=== PATIENT | female | born 1955 | race Caucasian/White ===

== ENCOUNTER 2023-08-06 09:51 | Outpatient (OUT) | payer MEDICARE, SELFPAY ==
--- NOTE | 2023-08-06 10:05 | MM_ITS ---
Patient Name: VANESSA CASTAÑEDA MR#: [id number] : 1955 Exam Date: 08/06/2023 Ordering Doctor: DR FELIX GREEN RADIOLOGY REPORT PROCEDURE: MM TOMOSYNTHESIS SCREENING BI COMPARISON: MG MAMM CHERRY SCRN W CAD DIG, 09/02/2013. INDICATIONS: screening Calculator Name NCI Breast Cancer Risk Assessment Tool 5 Year Breast Cancer Risk 1.20% Lifetime Breast Cancer Risk 4.40% Personal Breast Cancer No Personal Ovarian Cancer No Treatments None Family Cancers None LOCATION: [facility] BREAST COMPOSITION: Scattered areas fibroglandular density. FINDINGS: DIAGNOSTIC CATEGORY 2--BENIGN FINDING. NO CHANGE FROM COMPARISON. Significant interval increase in linear calcifications right greater than left and coarse calcifications left greater than right, benign appearing. Scattered benign-appearing lymph nodes are present. RIGHT BREAST: No significant suspicious finding. LEFT BREAST: No significant suspicious finding. RECOMMENDATIONS: ROUTINE MAMMOGRAM AND CLINICAL EVALUATION IN 12 MONTHS. PLEASE NOTE: A NORMAL MAMMOGRAM DOES NOT EXCLUDE THE POSSIBILITY OF BREAST CANCER. A CLINICALLY SUSPICIOUS PALPABLE LUMP SHOULD BE BIOPSIED. Dictated by: Gavino Kaur MD on 08/06/2023 at 11:52 Approved by: Gavino Kaur MD on 08/06/2023 at 11:53
--- NOTE | 2023-08-06 10:06 | CT_ITS ---
The [address] [address] Patient Name: VANESSA CASTAÑEDA MRN: [id number] date: 1955 Sex: F Assigned Patient Location: CT Current Patient Location: Accession/Order Number: [id number] Exam Date: 08/06/2023 10:21 Report Date: 08/07/2023 05:23 At the request of: FELIX GREEN Procedure: CT lung screening low-dose EXAM: CT lung screening low-dose HISTORY: History of nicotine dependence; technologist notes state lung cancer screening, no chest complaints and current smoker. COMPARISON: CT abdomen/pelvis dated 12/09/2021. TECHNIQUE: Routine low-dose CT lung screen without intravenous contrast. Dose reduction techniques were achieved by using automated exposure control and/or adjustment of mA and/or kV according to patient size and/or use of iterative reconstruction technique. FINDINGS: Cardiovascular: Multivessel coronary artery calcifications, severe along the left anterior descending coronary artery. Moderate atheromatous calcification thoracic and abdominal aorta. Mild atheromatous calcification great vessels off the aortic arch and right subclavian artery. Mild atheromatous calcifications splenic and origin of the right main renal artery and moderate atheromatous calcification along the proximal superior mesenteric artery. Lungs: There is peribronchial thickening, most pronounced within the bilateral lower lobes consistent with acute and/or chronic bronchitis. There is associated mucous plugging within the bilateral lower lobes. There are mild linear densities within the bilateral lower lobes suggesting atelectasis and/or parenchymal scar. There is biapical pleural parenchymal scarring, moderate on the right and mild on the left. Nodules: There is a 0.3 cm noncalcified nodule anterior lateral aspect right mid chest (series 3 image 65). There is a 0.2 cm noncalcified perifissural nodule right lower chest. There is a 0.3 cm noncalcified pleural-based nodule posterior left lung apex (series 3 image 16). Lymphadenopathy: There are no pathologically enlarged axillary, mediastinal or hilar lymph nodes. Other: The trachea, esophagus and thyroid gland are unremarkable. Upper abdomen: There is a calcified granuloma within the spleen. Osseous: The bony structures are osteopenic. 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 Stable compression fracture of the L1 vertebral body with approximately 15% loss of height. Age indeterminate compression fractures of the C7 and T1 vertebral bodies with less than 10-15% loss of height and age-indeterminate compression fracture of the T2 vertebral body with less than 5% loss of height. CT/CT lung screening low-dose IMPRESSION: There is peribronchial thickening, most pronounced within the bilateral lower lobes consistent with acute and/or chronic bronchitis. There is associated mucous plugging within the bilateral lower lobes. There are mild linear densities within the bilateral lower lobes suggesting atelectasis and/or parenchymal scar. Appropriate clinical management recommended. There is a 0.3 cm noncalcified nodule anterior lateral aspect right mid chest (series 3 image 65) and a 0.2 cm noncalcified perifissural nodule right lower chest. There is a 0.3 cm noncalcified pleural-based nodule posterior left lung apex (series 3 image 16). There are no pathologically enlarged lymph nodes. Multivessel coronary artery calcifications, severe along the left anterior descending coronary artery. Atherosclerotic disease as otherwise described in the body the report. 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 MRI of the shoulders could be performed for more detailed evaluation. Stable compression fracture of the L1 vertebral body with approximately 15% loss of height. Age indeterminate compression fractures of the C7 and T1 vertebral bodies with less than 10-15% loss of height and age-indeterminate compression fracture of the T2 vertebral body with less than 5% loss of height. Appropriate clinical management recommended. Lung rads score 1 S. A low-dose CT lung screen examination in 12 months is recommended. Electronically authenticated by: RU BECK Date: 08/07/2023 05:23
== END 2023-08-06 09:52 | disposition home or self-care (01) ==
LOC: CT 09:56
PROVIDERS: PCP Nurse Practitioner Family; Visit Provider Nurse Practitioner Family
DX: Z12.31 Encounter for screening mammogram for malignant neoplasm of breast (principal); Z87.891 Personal history of nicotine dependence
CPT/HCPCS: 71271; 77063; 77067

== ENCOUNTER 2023-10-16 09:06 | Outpatient (OUT) | payer MEDICARE, SELFPAY ==
[2023-10-16 09:30] LABS: Hemoglobin 15.5 g/dL (12.0-16.0)
--- OUTSIDE RECORDS SUMMARY | 2023-10-16 09:30 | XMS_ITS | CCD ---
Author Organization [facility] Care Team Providers Care Flight Test Supervisor Name Role Phone HOUSE, DR JOSHI Primary Care Unavailable HANLONTOWN, DR JOSHI Admitting Unavailable [facility], DR RONNY Gomez Consulting Unavailable HANLONTOWN, DR JOSHI Attending Unavailable HANLONTOWN, DR JOSHI Primary Care Unavailable HANLONTOWN, DR HAYDEN Alvaradoitting Unavailable HANLONTOWN, DR JOSHI Attending Unavailable HANLONTOWN, DR JOSHI Consulting Unavailable HANLONTOWN, DR JOSHI Primary Care Unavailable HANLONTOWN, DR JOSHI Admitting Unavailable [place], DR ROJAS Kumar Consulting Unavailable HANLONTOWN, DR JOSHI Attending Unavailable HANLONTOWN, DR JOSHI Consulting Unavailable DO Donny Jacobson Attending Provider DO Hayden Dodson Primary Care Provider Hayden Dodson Unavailable Unavailable Unavailable MD Yakelin Crowe Attending Provider MD Elle Luong Referring Provider [phone] Amrita, Dr. Hamlin Attending Unavaila ble [place], Dr. Hayden Mac Primary [facility] Unava ilable Amrita, Dr. Hamlin Attending Unavaila ble Amrita, Dr. Hamlin Referring Unavaila ble [place], Dr. Hayden Mac Primary Care Unava ilable Amrita, Dr. Hamlin Attending Unavaila ble Amrita, Dr. Hamlin Referring Unavaila [facility], Dr. Hayden Mac Primary Care Unava Ino Gallegos Unavailable DO Hayden Dodson Primary Care Provider MD Yakelin Crowe Attending Provider MD Elle Luong Referring Provider [phone] DO Donny Jacobson Attending Provider MD Ino Perkins Attending Provider DO Hayden Dodson Primary Care Provider MD Ino Perkins Attending Provider Vickie Ayon Unavailable Ino Perkins Admitting Unavailable Maddie, Ino S Attending Unavailable House, Hayden Primary Care Unavailable Maddie, Ino S Admitting Unavailable Maddie, Ino S Attending Unavailable [place], Hayden Primary Care Unavailable Maddie, Ino S Attending Unavailable Maddie, Ino S Admitting Unavailable [place], Hayden Primary Care Unavailable Maddie, Ino S Attending Unavailable Maddie, Ino S Admitting Unavailable [place], Hayden Primary Care Unavailable NO FAMILY, PHYSICIAN Primary Care Unavailable Renata Moran Attending Unavailable Dean, Renata E Admitting Unavailable Maddie, Ino S Admitting Unavailable Maddie, Ino S Attending Unavailable Ivory, Hayden Primary Care Unavailable Dean FIRE BOAT ENGINEER-MAINFRAME SYSTEMS ADMINISTRATOR-C Renata Mullins Attending Provider NO FAMILY, PHYSICIAN Primary Care Provider Unava ilable Kuns FIRE BOAT ENGINEER-MAINFRAME SYSTEMS ADMINISTRATORSuzanna Primary Care Provider Vanesa Tomas MD Primary Care Provider [phone] JESSYS, CONI Referring Unavailable KUNS, CONI Primary Care Unavailable KUNS, CONI Referring Unavailable KUNS, CONI Primary Care Unavailable KUNS, CONI Attending Unavailable KUNS, CONI Referring Unavailable KUNS, CONI Primary Care Unavailable KUNS, CONI Attending Unavailable IVORY HAYDEN Referring Unavailable KUNS, CONI Primary Care Unavailable KUNS, CONI Attending Unavailable KUNS, CONI Referring Unavailable KUNS, CONI Primary Care Unavailable KUNS, CONI Attending Unavailable KUNS, CONI Referring Unavailable KUNS, CONI Primary Care Unavailable KUNS, CONI Attending Unavailable KUNS, CONI Referring Unavailable KUNS, CONI Primary Care Unavailable RAQUEL GALVAN Attending Unavailable BIANCA PICKENS Attending Unavailable YADI GARCIA Attending Unavailable RAQUEL GALVAN Attending Unavailable BIANCA PICKENS Attending Unavailable EDNA MICHAEL Attending Unavailable BIANCA PICKENS Attending Unavailable BIANCA PICKENS Attending Unavailable JUAN CARO Attending Unavailable KUNS, CONI Referring Unavailable KUNS, CONI Primary Care Unavailable KUNSSUZANNA Referring Unavailable SUZANNA STRONG Primary [facility] Unavailable VANESA TOMAS Admitting Unavailable VANESA TOMAS Attending Unavailable SUZANNA STRONG Primary [facility] Unavailable VANESA TOMAS Attending Unavailable VANESA TOMAS Referring Unavailable SUZANNA STRONG [facility] Unavailable CARO, MUJEEB A Attending Unavailable CARO, MUJEEB A Referring Unavailable SUZANNA STRONG [facility] Unavailable CARO, MUJEEB A Attending Unavailable CARO, MUJEEB A Referring Unavailable SUZANNA STRONG Primary Care Unavailable CARO, MUJEEB A Attending Unavailable CARO, MUJEEB A Referring Unavailable SUZANNA STRONG [facility] Unavailable CARO, MUJEEB A Attending Unavailable CARO, MUJEEB A Referring Unavailable SUZANNA STRONG Primary [facility] Unavailable Allergies Allergy Classification Reported Allergen(s) Allergy Type Date of Onset Reaction(s) Facility (10 sources) metFORMIN; Translations: [METFORMIN] Drug Allergy 08-23-2023 Diarrhea [facility] Medications Current Medications Medication Drug Class(es) Dates Sig (Normalized) Sig (Original) [id number] 200 actuat albuterol 0.09 mg/actuat metered dose inhaler (11 sources) beta2-Adrenergic Agonist Start: 07-24-2023 take 2 puff(s) by inhalation every six hours as needed for wheezing albuterol (PROVENTIL HFA;VENTOLIN HFA) 90 mcg/actuation inhaler Indications: Chronic obstructive pulmonary disease, unspecified COPD type ([facility]) Inhale 2 puffs every 6 (six) hours as needed for wheezing or shortness of breath. 18 g 1 07/24/2023 Active aspirin 81 mg delayed release oral tablet (11 sources) Platelet Aggregation Inhibitor, Nonsteroidal Anti-inflammatory Drug Start: 06-18-2023 take 1 tablet by mouth in the morning aspirin 81 mg Take 1 tablet (81 mg total) by mouth in the morning. 0 06/18/2023 Active atropine sulfate 0.025 mg / diphenoxylate hydrochloride 2.5 mg oral tablet (7 sources) Anticholinergic, Cholinergic Muscarinic Antagonist, Antidiarrheal Start: 08-23-2023 take 1 tablet by mouth twice daily as needed for diarrhea diphenoxylate-atrop ine (LomotiL) 2.5-0.025 mg per tablet Indications: Functional diarrhea Take 1 tablet by mouth 2 (two) times a day as needed for diarrhea. 60 tablet 0 08/23/2023 Active celecoxib 200 mg oral capsule (9 sources) Nonsteroidal Anti-inflammatory Drug Start: 12-13-2020 take 1 capsule by mouth every twenty-four hours CeleBREX 200 MG 1 capsule with food Orally Once a day for 30 day(s) G89.29 Chronic Pain Nov, Active Combivent 120-20 MCG/ACT (9 sources) dextromethorphan hydrobromide 1.5 mg/ml / pyrilamine maleate 1.5 mg/ml oral solution (6 sources) Uncompetitive F-fqlquo-B-asparta te Receptor Antagonist, Sigma-1 Agonist Start: 08-27-2023 take 5 mL by mouth four times daily as needed for cough and congestion pyrilamine-dextrome thorphan 7.5-7.5 mg/5 mL liquid Take 5 mL by mouth 4 (four) times a day as needed (cough and congestion). 200 mL 1 08/27/2023 Active diclofenac sodium 0.01 mg/mg topical gel (9 sources) Nonsteroidal Anti-inflammatory Drug Start: 12-13-2020 Diclofenac Sodium 1 % as directed Externally apply two grams to mid back three- four times daily for 30 day(s) G89.29 Chronic pain Nov, Active diphenhydrAMINE hydrochloride 25 mg oral capsule (20 sources) Histamine-1 Receptor Antagonist Start: 01-18-2022 take 2 capsules by mouth at bedtime Diphenhydramine Hcl (Benadryl) 25 mg Capsule Active 50 MG PO Bedtime January 17, 2022 11:00pm dulaglutide (TRULICITY) 3 mg/0.5 mL pen injector (2 sources) Start: 09-27-2023 inject 3 mg by subcutaneous injection every week dulaglutide (TRULICITY) 3 mg/0.5 mL pen injector Inject 3 mg under the skin once a week. 2 mL 5 09/27/2023 Active DULoxetine 30 mg delayed release oral capsule (20 sources) Serotonin and Norepinephrine Reuptake Inhibitor Start: 01-18-2022 take 1 capsule by mouth in the morning DULoxetine (CYMBALTA) 30 mg capsule Take 1 capsule (30 mg total) by mouth in the morning. 0 05/18/2023 Active famotidine 20 mg oral tablet (11 sources) Histamine-2 Receptor Antagonist Start: 07-24-2023 take 1 tablet by mouth in the morning, then take 1 tablet by mouth at bedtime famotidine (PEPCID) 20 mg tablet Indications: Gastroesophageal reflux disease with esophagitis without hemorrhage Take 1 tablet (20 mg total) by mouth in the morning and 1 tablet (20 mg total) before bedtime. 60 tablet 1 07/24/2023 Active 30 actuat fluticasone furoate 0.1 mg/actuat / umeclidinium 0.0625 mg/actuat / vilanterol 0.025 mg/actuat dry powder inhaler (9 sources) Anticholinergic, Corticosteroid, beta2-Adrenergic Agonist Start: 08-08-2023 take 1 puff(s) by inhalation once daily fluticasone-umeclidi n-vilanter (TRELEGY ELLIPTA) 100-62.5-25 mcg blister with device Indications: Mixed simple and mucopurulent chronic bronchitis (CMS-HCC) Inhale 1 puff once daily. 60 each 2 08/08/2023 Active gabapentin 600 mg oral tablet (20 sources) Anti-epileptic Agent Start: 07-16-2023 take 1 tablet by mouth in the morning, then take 1 tablet by mouth at bedtime gabapentin (NEURONTIN) 600 mg tablet Take 1 tablet (600 mg total) by mouth in the morning and 1 tablet (600 mg total) before bedtime. 0 07/16/2023 Active Start: 01-24-2023 take 600 mg by mouth once lea y Gabapentin Active 600 MG PO Daily January 23, 2023 11:00pm Start: 01-18-2022 End: 01-24-2023 take 300 mg by mouth twice daily Gabapentin Discontinued 300 MG PO Twice daily March 16, 2022 11:00pm January 24, 2023 7:42am take 1 tablet by zachary th every twelve hours Gabapentin 600 MG 1 tablet Orally bid Active rosuvastatin calcium 20 mg oral tablet (11 sources) HMG-CoA Reductase Inhibitor Start: 09-17-2023 take 1 tablet by mouth once daily rosuvastatin (CRESTOR) 20 mg tablet Take 1 tablet (20 mg total) by mouth nightly. 90 tablet 3 09/17/2023 Active Start: 07-25-2023 End: 09-17-2023 take 1 tablet by mouth once daily rosuvastatin (CRESTOR) 5 mg tablet Take 1 tablet (5 mg total) by mouth nightly. 90 tablet 1 07/25/2023 09/17/2023 Discontinued Completed/Discontinued Medications Medication Drug Class(es) Dates Sig (Normalized) Sig (Original) 120 actuat albuterol 0.1 mg/actuat / ipratropium bromide 0.02 mg/actuat inhalation spray (20 sources) Anticholinergic, beta2-Adrenergic Agonist Start: 07-24-2023 End: 09-17-2023 ipratropium-albuter oL (COMBIVENT RESPIMAT) 20-100 mcg/actuation mist Indications: Chronic obstructive pulmonary disease, unspecified COPD type ([facility]) Inhale 1 puff in the morning and 1 puff at noon and 1 puff in the evening and 1 puff before bedtime. 4 g 5 07/24/2023 09/17/2023 Discontinued (Patient Stopped On Own) Start: 03-17-2022 take 20-100 ug by in halation every six hours Ipratropium-Albuterol (Combivent Respimat) 20-100 mcg/actuation Mist Active 1 PUFF INHALATION Q6H March 16, 2022 11:00pm Combivent Respim at 20-100 MCG/ACT Inhalation Aerosol Solution As directed. Quantity: 0 Refills: 0 Ordered: 20-Jan-2022 DO Active 0.5 ml dulaglutide 3 mg/ml auto-injector (7 sources) GLP-1 Receptor Agonist Start: 09-18-2023 End: 09-27-2023 inject 1.5 mg by subcutaneous injection every week dulaglutide (TRULICITY) 1.5 mg/0.5 mL pen injector Inject 1.5 mg under the skin once a week. 2 mL 5 09/18/2023 09/27/2023 Discontinued (Dose adjustment) Start: 08-23-2023 End: 09-18-2023 inject 0.5 mL by subcutaneous injection every week dulaglutide (TRULICITY) 0.75 mg/0.5 mL pen injector Inject 0.5 mL (0.75 mg total) under the skin once a week. 2 mL 0 08/23/2023 09/18/2023 Discontinued Ipratropium-Albuterol (Combivent) 18-103 mcg/actuation Aerosol (20 sources) Start: 03-17-2022 End: 03-17-2022 Ipratropium-Albuterol (Combivent) 18-103 mcg/actuation Aerosol Discontinued SPRAY INHALATION March 16, 2022 11:00pm March 17, 2022 9:03am Start: 03-17-2022 End: 03-17-2022 Ipratropium-Albuterol (Combi vent) 18-103 mcg/actuation Aerosol Discontinued SPRAY INHALATION March 17, 2022 12:00am March 17, 2022 10:03am Start: 01-18-2022 End: 03-17-2022 take 1 spray(s) by inhalation every six hours Ipratropium-Albuterol (Combivent) 18-103 mcg/actuation Aerosol Discontinued 1 SPRAY INHALATION Every 6 hours January 17, 2022 11:00pm March 17, 2022 9:02am Start: 01-18-2022 End: 03-17-2022 take 1 spray(s) by inhalation every six hours Ipratropium-Albuterol (Combivent) 18-103 mcg/actuation Aerosol Discontinued 1 SPRAY INHALATION Every 6 hours January 18, 2022 12:00am March 17, 2022 10:02am Start: 01-18-2022 take 1 spray(s) by inhalation every six hours Ipratropium-Albuterol (Combivent) 18-103 mcg/actuation Aerosol Active 1 SPRAY INHALATION Every 6 hours January 18, 2022 12:00am 24 hr metFORMIN hydrochloride 500 mg extended release oral tablet (20 sources) Biguanide Start: 07-25-2023 End: 08-23-2023 take 2 tablets by mouth every twenty-four hours at bedtime metFORMIN XR (GLUCOPHAGE XR) 500 mg 24 hr tablet Take 2 tablets (1,000 mg total) by mouth in the morning and at bedtime. 360 tablet 1 07/25/2023 08/23/2023 Discontinued (Side effects) Start: 01-18-2022 End: 12-06-2022 take 500 mg by mouth twice daily Metformin Discontinue d 500 MG PO Twice daily January 17, 2022 11:00pm December 06, 2022 11:38am take 1 tablet by zachary th every twelve hours at mealtime metFORMIN HCl - 500 MG Oral Tablet TAKE 1 TABLET EVERY 12 HOURS WITH FOOD. Quantity: 0 Refills: 0 Ordered: 20-Jan-2022 DO Active metroNIDAZOLE 250 mg oral tablet (16 sources) Nitroimidazole Antimicrobial Start: 01-18-2022 End: 03-17-2022 take 250 mg by mouth three times daily Metronidazole Discontinued 250 MG PO Three times daily January 17, 2022 11:00pm March 17, 2022 8:30am tiZANidine 4 mg oral tablet (8 sources) Central alpha-2 Adrenergic Agonist Start: 07-24-2023 End: 09-17-2023 take 1 tablet by mouth once daily tiZANidine (ZANAFLEX) 4 mg tablet Indications: Thoracic myofascial strain, sequela Take 1 tablet (4 mg total) by mouth nightly. 30 tablet 0 07/24/2023 09/17/2023 Discontinued (Patient Stopped On Own) traMADol hydrochloride 50 mg oral tablet (6 sources) Opioid Agonist Start: 03-31-2022 End: 01-24-2023 take 1 tablet by mouth every six hours Tramadol (Ultram) 50 mg tablet Discontinued 50 MG PO Q6H 30 7 March 30, 2022 11:00pm January 24, 2023 7:43am triamcinolone acetonide 40 mg/ml injectable suspension (20 sources) Corticosteroid Start: 09-21-2022 Kenalog-40 Aug, 60 mg Start: 11-22-2020 Kenalog -40 mg October, 60 mg Start: 05-17-2020 Kenalog -40 mg May, 60 mg Problems Active Problems Problem Classification Problem Date Documented Da te Episodic/Chronic Abdominal pain (4 sources) Unspecified abdominal pain; Translations: [UNSPECIFIED ABDOMINAL PAIN] Onset: 2 Episodic Chronic obstructive pulmonary disease and bronchiectasis (20 sources) Chronic obstructive lung disease; Translations: [Chronic airway obstruction, not elsewhere classified] Onset: 4 07-24-2023 Chronic Coronary atherosclerosis and other heart disease (4 sources) Coronary arteriosclerosis; Translations: [Atherosclerotic heart disease of kiana coronary artery with unspecified angina pectoris] Onset: 4 08-08-2023 Chronic Diabetes mellitus without complication (20 sources) Diabetes mellitus; Translations: [Diabetes mellitus without mention of complication, type II or unspecified type, not stated as uncontrolled] Onset: 4 07-25-2023 Chronic Diabetes mellitus without complication (4 sources) Glycosuria; Translations: [Hyperglycemia] Onset: 2 07-24-2023 Episodic Disorders of lipid metabolism (16 sources) Mixed hyperlipidemia; Translations: [Mixed hyperlipidemia] Onset: 4 07-24-2023 Chronic Esophageal disorders (1 source) Gastro-esophageal reflux disease with esophagitis; Translations: [Gastroesophageal reflux disease with esophagitis without hemorrhage] 07-24-2023 Chronic Esophageal disorders (1 source) Esophageal disorders; Translations: [Gastro-esophageal reflux disease with esophagitis, without bleeding] Onset: 4 Essential hypertension (2 sources) Essential hypertension; Translations: [Essential (primary) hypertension] Onset: 4 09-17-2023 Chronic Headache; including migraine (1 source) Headache Onset: 4 Episodic Malaise and fatigue (3 sources) Fatigue; Translations: [Other fatigue] Onset: 4 07-24-2023 Episodic Noninfectious gastroenteritis (4 sources) Chronic diarrhea; Translations: [Noninfective gastroenteritis and colitis, unspecified] Onset: 4 09-23-2023 Episodic Other and unspecified benign neoplasm (1 source) Polyp of sigmoid colon; Translations: [Polyp of colon] Onset: 4 10-03-2023 Episodic Other and unspecified benign neoplasm (1 source) Polyp of colon; Translations: [Polyp of colon] Onset: 4 Episodic Other bone disease and musculoskeletal deformities (1 source) Avascular necrosis of bone; 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] 08-08-2023 Chronic Other bone disease and musculoskeletal deformities (1 source) Idiopathic aseptic necrosis of unspecified bone; 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] Onset: 4 Chronic Other connective tissue disease (9 sources) Myofascial pain; Translations: [Myalgia, other site] Episodic Other connective tissue disease (3 sources) Myalgia, other site Episodic Other connective tissue disease (2 sources) Muscle pain; Translations: [Myalgia, unspecified site] 08-13-2023 Episodic Other gastrointestinal disorders (1 source) Functional diarrhea; Translations: [Functional diarrhea] 08-23-2023 Episodic Other gastrointestinal disorders (2 sources) Diarrhea; Translations: [Diarrhea, unspecified] Onset: 4 09-18-2023 Episodic Other gastrointestinal disorders (1 source) Diarrhea, unspecified; Translations: [Diarrhea, unspecified] Onset: 4 Episodic Other gastrointestinal disorders (1 source) Functional diarrhea; Translations: [Functional diarrhea] Onset: 4 Episodic Other lower respiratory disease (5 sources) Dyspnea; Translations: [Other respiratory abnormalities] Episodic Other lower respiratory disease (1 source) Dyspnea on exertion; Translations: [Other forms of dyspnea] 09-17-2023 Episodic Other lower respiratory disease (1 source) Cough Onset: 4 Episodic Other lower respiratory disease (1 source) Shortness of breath Onset: 4 Episodic Other lower respiratory disease (1 source) Other forms of dyspnea; Translations: [Other forms of dyspnea] Onset: 4 Episodic Other nervous system disorders (9 sources) Chronic pain; Translations: [Other chronic pain] Chronic Other nervous system disorders (6 sources) Other chronic pain Chronic Other nervous system disorders (1 source) Other chronic pain; Translations: [Other chronic pain] Onset: 3 Chronic Other nervous system disorders (1 source) Ataxia, unspecified; Translations: [Ataxia, unspecified] Onset: 3 Episodic Other non-traumatic joint disorders (2 sources) Pain in right shoulder; Translations: [Pain in joint, shoulder region] 08-12-2023 Episodic Other nutritional; endocrine; and metabolic disorders (1 source) Overweight in adulthood with body mass index of 25 or more but less than 30; Translations: [Body mass index (BMI) 26.0-26.9, adult] 07-24-2023 Episodic Other screening for suspected conditions (not mental disorders or infectious disease) (9 sources) Electrocardiogram abnormal; Translations: [Nonspecific abnormal electrocardiogram [ECG] [EKG]] Onset: 4 07-24-2023 Episodic Other upper respiratory disease (1 source) Nasal congestion Onset: 4 Episodic Residual codes; unclassified (5 sources) Body mass index 20-24 - normal; Translations: [Body Mass Index between 19-24, adult] Episodic Residual codes; unclassified (1 source) Tobacco user; Translations: [Tobacco use] 07-24-2023 Episodic Residual codes; unclassified (1 source) Other general symptoms and signs; Translations: [Other general symptoms and signs] Onset: 4 Episodic Residual codes; unclassified (1 source) Tobacco use; Translations: [Tobacco use] Onset: 4 Episodic Screening and history of mental health and substance abuse codes (2 sources) Personal history of nicotine dependence; Translations: [Personal history of tobacco use] Onset: 4 07-24-2023 Episodic Spondylosis; intervertebral disc disorders; other back problems (20 sources) Cervical spondylosis with myelopathy; Translations: [Other spondylosis with myelopathy, cervical region] Onset: 3 Chronic Spondylosis; intervertebral disc disorders; other back problems (19 sources) Dorsalgia, unspecified; Translations: [Pain in thoracic spine] Onset: 3 Episodic Sprains and strains (2 sources) Strain of muscle at thorax level; Translations: [Strain of muscle and tendon of unspecified wall of thorax, sequela] Onset: 4 07-24-2023 Episodic Substance-related disorders (5 sources) Smoker; Translations: [Tobacco use disorder] Chronic Comment on above: 2 packs daily; Unclassified (1 source) dicuss CT results Onset: 4 Unclassified (2 sources) New Patient Onset: 4 Viral infection (1 source) COVID-19; Translations: [COVID-19] Onset: 4 Past or Other Problems Problem Classification Problem Date Documented Date Episodic/Chronic Biliary tract disease (16 sources) Calculus of gallbladder without cholecystitis without obstruction; Translations: [Cholecystitis] Onset: 12-20-2021 Resolved: 09-18-2023 03-31-2022 Episodic Mood disorders (11 sources) Mood disorders Onset: 07-24-2023 Resolved: 09-18-2023 07-24-2023 Unclassified (11 sources) Onset: 07-24-2023 07-24-2023 Results Test Name Value Interpretation Reference Range Facility [facility] 024 Surgical Pathology [facility] Comment on above: Result Comment: [facility] [address] [place] [address] Surgical Pathology Consultation Patient Name:KEELY AVALOS:1955 (Age: 68)Gender:FTaken:4Reported:10/05/2023hysician(s):Vanesa Tomas MD ([phone])Copy To: Rec. #:[id number]: #[id number] Final Pathologic Diagnosis 1. Colon at 60 cm, polypectomy: Sessile serrated adenoma/polyp, negative for conventional adenomatous dysplasia. 2. Colon at 50 cm, polypectomy: Tubular adenoma. 3. Sigmoid colon biopsy: Fragments of colonic mucosa, two of which demonstrate low-grade adenomatous change, consistent with tubular adenoma. Remaining colonic mucosa showing no significant pathologic change. See comment. 4. Colon at 45 cm, polypectomy: Tubular adenoma. 5. Colon at 15 cm, polypectomy: Tubular adenoma. No evidence of malignancy or high-grade dysplasia. Inked/cauterized margin is negative for dysplasia. Comment: The non-adenomatous colonic mucosa demonstrates no significant inflammatory activity or crypt architectural alteration, and no evidence of microscopic (lymphocytic or collagenous) colitis. Correlation with endoscopic findings is recommended. Report Electronically Signed Out ao/10/05/2023derek Low MD Interpretation performed at [facility], [address] [place] [address], License number: [id number]. Clinical History Chronic diarrhea. Gross Description 1. Received in formalin labeled, MADDY, 60 cm is a pale-leonardo delicate soft tissue fragment, 0.3 cm in greatest dimension. The specimens are filtered and submitted in a single cassette. (1, lorin, [id number], m8) TB 2. Received in formalin labeled, MADDY, 50 cm are 8 pale-leonardo delicate and friable soft tissue fragments, 0.1-0.3 cm in greatest dimension. The specimens are filtered and submitted in a single cassette. (1, lorin, [id number], m8) TB 3. Received in formalin labeled, MADDY, sigmoid BX are 8 pale-leonardo delicate soft tissue fragments, 0.1-0.3 cm in greatest dimension. The specimens are filtered and submitted in a single cassette. (1, ns, [id number], m8) TB 4. Received in formalin labeled, MADDY, 45 cm are 6 pale-leonardo delicate soft tissue fragments, 0.1-0.4 cm in greatest dimension. The specimens are filtered and submitted in a single cassette. (1, ns, [id number], m8) TB 5. Received in formalin labeled, MADDY, 15 cm is a leonardo to brown delicate soft tissue fragment, 1 cm in greatest dimension. The resection margin is inked black, and the polyp is serially sectioned and submitted entirely in a single cassette. (1, ns, [id number], m8) TB tgb/10/04/2023NSK Specimen(s) Received 1: Colon polyp 60cm 2: Colon polyp 50cm 3: Sigmoid biopsy 4: Colon polyp 45cm 5: Colon polyp 15cm Fee Codes(s): 1; 84496 2; 25633 3; 69809 4; 23041 5; 70460 POCT EKGOrdered By: Yael William on 09-17-2023 [facility] MICROALBUMIN - ALBUMIN:CREAT ININE URINE RATIOon 08-23-2023 ALB/CREAT RATIO 7.5 mg/g creat Normal 0.0-30.0 [facility] Comment on above: Performed By: #### M ALBU #### [facility] ([id number]) [address], [address] [place] [address] Albumin DL <= 20 mg/L (U) [Mass/Vol] 1.0 mg/dL Normal 0.0-1.9 [facility] Comment on above: Performed By: #### M ALBU #### [facility] ([id number]) [address], [address] [place] [address] URINE CREAT 133.40 mg/dL Normal [facility] Comment on above: Performed By: #### M ALBU #### [facility] ([id number]) [address], [address] [place] [address] Microalbumin - Albumin: Crea tinine Urine Ratioon 08-23-2023 Albumin DL <= 20 mg/L (U) [Mass/Vol] 1.0 mg/dL 0.0 - 1.9 mg/dL [facility] Albumin/Creatinine DL <= 1.0 mg/L (U) [Ratio] 7.5 [facility] Creatinine (U) [Mass/Vol] 133.40 mg/dL [facility] COMPREHENSIVE METABOLIC PANE Pete 07-24-2023 Albumin [Mass/Vol] 4.1 g/dL Normal 3.2-5.3 [facility] Comment on above: Performed By: #### Beverley MORENO, 74851-3, THYR #### [facility] ([id number]) [address], [address] [place] [address] ALP [Catalytic activity/Vol] 115 U/L Normal 39-130 [facility] Comment on above: Performed By: #### Beverley MORENO, 14694-2, THYR #### [facility] ([id number]) [address], [address] [place] [address] ALT [Catalytic activity/Vol] 24 U/L Normal 0-31 [facility] Comment on above: Performed By: #### Beverley MORENO, 70996-9, THYR #### [facility] ([id number]) [address], [address] [place] [address] Anion gap [Moles/Vol] 8 mmol/L Normal 5-15 [facility] Comment on above: Performed By: #### Beverley MORENO, 74572-9, THYR #### [facility] ([id number]) [address], [address] [place] [address] AST [Catalytic activity/Vol] 19 U/L Normal 0-41 [facility] Comment on above: Performed By: #### C JOSH, 73643-3, THYR #### [facility] ([id number]) [address], [address] [place] [address] Bilirubin [Mass/Vol] 0.3 mg/dL Normal 0.3-1.2 [facility] Comment on above: Performed By: #### Beverley MORENO, 19829-1, THYR #### [facility] ([id number]) [address], [address] [place] [address] Calcium [Mass/Vol] 9.9 mg/dL Normal 8.5-10.5 [facility] Comment on above: Performed By: #### Beverley MORENO, 41620-0, THYR #### [facility] ([id number]) [address], [address] [place] [address] Chloride [Moles/Vol] 99 mmol/L Normal 98-109 [facility] Comment on above: Performed By: #### Beverley MORENO, 54775-1, THYR #### [facility] ([id number]) [address], [address] [place] [address] CO2 [Moles/Vol] 30 mmol/L Normal 22-32 [facility] Comment on above: Performed By: #### Beverley MORENO, 44241-5, THYR #### [facility] ([id number]) [address], [address] [place] [address] Creatinine [Mass/Vol] 0.77 mg/dL Normal 0.40-1.00 [facility] Comment on above: Result Comment: METH OD TRACEABLE TO IDMS STANDARD Performed By: #### Beverley MORENO, 50542-9, THYR #### [facility] ([id number]) [address], [address] [place] [address] GFR/1.73 sq M.predicted among non-blacks MDRD (S/P/Bld) [Vol rate/Area] 85 mL/min/{1.73_m2} Normal >59 [facility] Comment on above: Result Comment: Reported eGFR is based on the CKD-EPI 2020 equation that does not use a race coefficient. Performed By: #### Beverley MORENO 45321-6, THYR #### [facility] ([id number]) [address], [address] [place] [address] Glucose [Mass/Vol] 263 mg/dL High 65-99 [facility] Comment on above: Performed By: #### Tai Lowery MP-1, THYR #### [facility] ([id number]) [address], [address] [place] [address] Potassium [Moles/Vol] 4.3 mmol/L Normal 3.5-5.0 [facility] Comment on above: Performed By: #### Beverley MORENO 71436-7, THYR #### [facility] ([id number]) [address], [address] [place] [address] Protein [Mass/Vol] 6.8 g/dL Normal 6.0-8.0 [facility] Comment on above: Performed By: #### Beverley MORENO 61481-9, THYR #### [facility] ([id number]) [address], [address] [place] [address] Sodium [Moles/Vol] 137 mmol/L Normal 134-146 [facility] Comment on above: Performed By: #### Beverley MORENO 13847-8, THYR #### [facility] ([id number]) [address], [address] [place] [address] Urea nitrogen [Mass/Vol] 13 mg/dL Normal 5-27 [facility] Comment on above: Performed By: #### Beverley MORENO 27549-7, THYR #### [facility] ([id number]) [address], [address] [place] [address] Comprehensive metabolic pane pete 01-23-2024 Albumin [Mass/Vol] 4.1 g/dL 3.2 - 5.3 g/dL [facility] ALP [Catalytic activity/Vol] 115 U/L 39 - 130 U/L [facility] ALT No additional P-5'-P [Catalytic activity/Vol] 24 U/L 0 - 31 U/L [facility] Anion gap [Moles/Vol] 8 mmol/L 5 - 15 mmol/L [facility] AST [Catalytic activity/Vol] 19 U/L 0 - 41 U/L [facility] Bilirubin [Mass/Vol] 0.3 mg/dL 0.3 - 1 .2 mg/dL [facility] Calcium [Mass/Vol] 9.9 mg/dL 8.5 - 10. 5 mg/dL [facility] Chloride [Moles/Vol] 99 mmol/L 98 - 10 9 mmol/L [facility] CO2 [Moles/Vol] 30 mmol/L 22 - 32 mmol/L [facility] Creatinine [Mass/Vol] 0.77 mg/dL 0.40 - 1.00 mg/dL [facility] Comment on above: METHOD TRACEABLE TO IDWI STANDARD eGFR (CKD-EPI)non-race dependent 85 - PINF [facility] Comment on above: Reported eGFR is based on the CKD-EPI 2020 equation that does not use a race coefficient. Glucose [Mass/Vol] 263 mg/dL High 65 - 99 mg/dL [facility] Potassium [Moles/Vol] 4.3 mmol/L 3.5 - 5.0 mmol/L [facility] Protein [Mass/Vol] 6.8 g/dL 6.0 - 8.0 g/dL [facility] Sodium [Moles/Vol] 137 mmol/L 134 - 146 mmol/L [facility] Urea nitrogen [Mass/Vol] 13 mg/dL 5 - 27 mg/dL [facility] HGB A1C (GLYCO-HGB)on 2023 Glucose [Mass/Vol] 235 mg/dL Normal [facility] Comment on above: Performed By: #### C , 13505-6, THYR #### [facility] ([id number]) [address], [address] [place] [address] HbA1c (Bld) [Mass fraction] 9.8 % High 4.4-5.6 [facility] Comment on above: Result Comment: NOTE ADA Guidelines Result HgbA1c Normal : less than 5.7 % Prediabetes : 5.7 % to 6.4 % Diabetes : > 6.4 % Use with caution in patients with abnormal hemoglobin variants as the half-life of red blood cells and in vivo glycation rates are affected. Performed By: #### C , 46326-4, THYR #### [facility] ([id number]) [address] [place] [address], [address] [place] [address] Hemoglobin A1con 07-24-2023 Average glucose Estimated from glycated hemoglobin (Bld) [Mass/Vol] 235 mg/dL [facility] HbA1c (Bld) [Mass fraction] 9.8 % High 4.4 - 5.6 % [facility] Comment on above: NOTE ADA Guidelines Result HgbA1c Normal : less than 5.7 % Prediabetes : 5.7 % to 6.4 % Diabetes : > 6.4 % Use with caution in patients with abnormal hemoglobin variants as the half-life of red blood cells and in vivo glycation rates are affected. Interpretation and review of laboratory results Abnormal [facility] Lipid 1996 panelon Cholesterol [Mass/Vol] 180 mg/dL 150 - 200 mg/dL [facility] Cholesterol in HDL [Mass/Vol] 31 mg/dL Low 39 - PINF mg/dL [facility] Comment on above: HDL <40 mg/dL - High Risk HDL > or = 40mg/dL- Desirable HDL >60 mg/dL - Negative Risk Cholesterol in LDL [Mass/Vol] 97 mg/dL NINF - 130 mg/dL [facility] Comment on above: LDL <100 mg/dL - Desirable LDL >160 mg/dL - High Risk Cholesterol in VLDL [Mass/Vol] 52 mg/dL High 0 - 30 mg/dL [facility] Cholesterol.total/Kelsie sterol in HDL [Mass ratio] 5.8 {ratio} High 1.0 - 5.0 [facility] Triglyceride [Mass/Vol] 262 mg/dL High 27 - 150 mg/dL [facility] Cholesterol [Mass/Vol] 180 mg/dL Normal 150-200 [facility] Comment on above: Performed By: #### Beverley MORENO, 44048-0, THYR #### [facility] ([id number]) [address] [place] [address] Cholesterol in HDL [Mass/Vol] 31 mg/dL Low >39 [facility] Comment on above: Result Comment: HDL <40 mg/dL - High Risk HDL > or = 40mg/dL- Desirable HDL >60 mg/dL - Negative Risk Performed By: #### Beverley MORENO, 05340-9, THYR #### [facility] ([id number]) [address] [place] [address] Cholesterol in LDL [Mass/Vol] 97 mg/dL Normal <130 [facility] Comment on above: Result Comment: LDL <100 mg/dL - Desirable LDL >160 mg/dL - High Risk Performed By: #### Beverley MORENO, 88225-8, THYR #### [facility] ([id number]) [address], [address] [place] [address] Cholesterol in VLDL [Mass/Vol] 52 mg/dL High 0-30 [facility] Comment on above: Performed By: #### Beverley MORENO, 67706-2, THYR #### [facility] ([id number]) [address], [address] [place] [address] CHOLESTEROL:HDL 5.8 High 1.0-5.0 [facility] Comment on above: Performed By: #### C JOSH, 40248-1, THYR #### [facility] ([id number]) [address], [address] [place] [address] Triglyceride [Mass/Vol] 262 mg/dL High 27-150 [facility] Comment on above: Performed By: #### Beverley MORENO, 31732-7, THYR #### [facility] ([id number]) [address], [address] [place] [address] No Panel Informationon 07-24 Interpretation and review of laboratory results Abnormal [facility] THYROID PROFILEon 07-24-2023 Free T4 [Mass/Vol] 0.68 ng/dL Normal 0.61-1.60 [facility] Comment on above: Performed By: #### Beverley MORENO, 73038-9, THYR #### [facility] ([id number]) [address], [address] [place] [address] TSH 1.93 uIU/mL Normal 0.49-4.67 [facility] Comment on above: Performed By: #### Beverley MORENO, 72181-4, THYR #### [facility] ([id number]) [address], [address] [place] [address] Thyroid profile includes TSH FT4on 07-24-2023 Free T4 [Mass/Vol] 0.68 ng/dL 0.61 - 1. 60 ng/dL [facility] TSH Qn 1.93 m[IU]/L [facility] MR head/brain wo/w conon MR head/brain wo/w con [facility] [address] [place] [address] [place] [address] MRI Report Signed Patient: Keely Avalos MR#: [id number] 4 : 1955 Acct:[id number] Age/Sex: 68 / F ADM Date: 05/17/23 Loc: MR Room: Type: [facility] Attending Dr: Renata ARAGON Copies to: MAHESH Argueta Ordering Provider: MAHESH Argueta Date of Service: 05/17/23 MR/MR head/brain wo/w con: R27.0 MR head/brain wo/w con 05/17/2023 8:57 PM SIGN AND SYMPTOMS: Low back pain, left leg pain, difficulty walking, ataxia PROTOCOL: Multiplanar multisequence MR images of the brain were obtained with and without IV contrast CONTRAST: 13 mL of intravenous ProHance COMPARISON: None. FINDINGS: Extra axial spaces: There is mild diffuse cortical atrophy. Hemorrhage: None. Ventricular system: Within normal limits. Basal cisterns: Within normal limits and not effaced. Cerebral parenchyma: T2 and T2 FLAIR hyperintense signal is noted consistent with chronic microvascular ischemic change. There is a remote lacunar infarct in the right frontal ventricular white matter. No abnormal postcontrast enhancement. Midline shift: None.. Cerebellum: Within normal limits. Brainstem: Within normal limits. OTHER: Calvarium: Normal marrow signal. There is a large sebaceous cyst in the left parietal scalp. Vascular system: Satisfactory flow voids within the anterior and posterior circulation. Visualized Paranasal sinuses: Within normal limits. Visualized Orbits: Within normal limits. Visualized upper cervical spine: Within normal limits. Sella and skull base: Within normal limits. MR/MR head/brain wo/w con IMPRESSION: No acute intracranial pathology or abnormal postcontrast enhancement. Chronic microvascular ischemic changes are noted with mild diffuse age-related cortical atrophy. There is a remote lacunar infarct in the right frontal periventricular white matter. Impression dictated by: Camden Rm M.D.05/18/2023 11:21 AM Dictation Location: [place] [address] Transcribed By: [facility] 05/18/23 1121 Dictated By: Camden Rm II, MD 05/18/23 1115 Signed By: 05/18/23 1121 Normal [facility] XR pre/post mri xrayon 05-18 XR pre/post mri xray [place] [address] MRI Report Signed Patient: Keely Avalos MR#: [id number] 4 : 1955 Acct:[id number] Age/Sex: 68 / F ADM Date: 05/17/23 Loc: MR Room: Type: [facility] Attending Dr: Renata ARAGON Copies to: MAHESH Argueta Ordering Provider: MAHESH Argueta Date of Service: 05/17/23 MR/MR lumbar spine wo/w con: R26.89 ([id number]) XR/XR pre/post mri xray: R27.0 MR lumbar spine wo/w con, XR pre/post mri xray 05/17/2023 7:15 PM SIGNS AND SYMPTOMS: Low back pain extending into left leg, history of lumbar surgery PROTOCOL: Multiplanar multisequence MR images of the lumbar spine were obtained with and without IV contrast. Frontal and lateral radiographs of the lumbar spine were obtained. CONTRAST: 13 mL of intravenous ProHance COMPARISON: 03/04/2020 FINDINGS: Radiographs of the lumbar spine: There is a dextro convex curvature of the lumbar spine. There is mild disc height loss at L4-5 and L5-S1. There is a compression deformity of the superior endplate of the L1 vertebral body. Atherosclerotic changes are noted in the abdominal aorta. Degenerative changes are noted in the sacroiliac joints. MRI lumbar spine: The bones of the lumbar spine are in anatomic alignment. There is a compression deformity of the superior endplate of the L1 vertebral body which is remote in nature. The vertebral body heights are otherwise preserved. There is mild disc height loss at L4-L5 with moderate disc height loss at T12- L1 and L5-S1. There is a benign-appearing hemangioma at L2-3 seconds similar benign-appearing hemangioma at L4. The conus terminates at the mid L1 vertebral body level. No epidural or paraspinous fluid collection is appreciated. At T12-L1: There is also noted in the superior endplate of L1 contributes to mild spinal canal narrowing with mild bilateral neural foraminal narrowing. At L1-L2: There is a normal disc, central canal, and neural foramen. At L2-L3: There is a normal disc, central canal, and neural foramen. At L3-L4: There is a broad-based disc bulge. There is mild spinal canal stenosis without significant neural foraminal narrowing. At L4-L5: There is a broad-based disc bulge with facet hypertrophy. There is a focal central disc protrusion slightly to the left midline. There is mild spinal canal stenosis with mild bilateral neural foraminal narrowing. This is unchanged when compared to the prior exam. At L5-S1: There is a broad-based disc bulge with facet hypertrophy. There has been interval improvement in the appearance of a focal left subarticular disc protrusion. No significant spinal canal narrowing. There is mild to moderate bilateral neural foraminal narrowing. This is slightly worse when compared to the prior exam. MR/MR lumbar spine wo/w con IMPRESSION: At L4-L5: There is a broad-based disc bulge with facet hypertrophy. There is a focal central disc protrusion slightly to the left midline. There is mild spinal canal stenosis with mild bilateral neural foraminal narrowing. This is unchanged when compared to the prior exam. At L5-S1: There is a broad-based disc bulge with facet hypertrophy. There has been interval improvement in the appearance of a focal left subarticular disc protrusion. No significant spinal canal narrowing. There is mild to moderate bilateral neural foraminal narrowing. This is slightly worse when compared to the prior exam. Lesser degrees of degenerative changes are noted, as above. There is a remote L1 superior endplate compression fracture. No abnormal postcontrast enhancement. Impression dictated by: Camden Rm M.D.05/18/2023 11:35 AM Dictation Location: [place] [address] Transcribed By: MARCELINA 05/18/23 1135 Dictated By: Camden Rm II, MD 05/18/23 1122 Signed By: 05/18/23 1135 Normal [facility] Creatinine (Bld) [Mass/Vol]O rdered By: Renata Moran on 05-17-2023 Creatinine [Mass/Vol] 0.9 mg/dL 0.6-1.3 [facility] Comment on above: ER/ESD physician is notified/shown all ISTAT results.Critical values may be confirmed by laboratory testing ifdeemed necessary by ER attending doctor. ISTAT XRay CREon 05-17-2023 Creatinine [Mass/Vol] 0.9 mg/dL Normal 0.6-1.3 [facility] Comment on above: Result Comment: ER/E SD physician is notified/shown all ISTAT results. Critical values may be confirmed by laboratory testing if deemed necessary by ER attending doctor. Performed By: #### I SCRE #### [address] ISTAT GFR > 60.0 [facility] Comment on above: Result Comment: PERF ORMED BY: [place] [address] PATHOLOGIST [employer] OPERATOR JUSTINA HOUSE M.D. Performed By: #### I SCRE #### [address] No Panel InformationOrdered By: Renata Moran on 05-17-2023 Bedside Estimated GFR (eGFR) > 60.0 [facility] MR thoracic spine wo conon 0 11-06-2022 MR thoracic spine wo con [place] [address] MRI Report Signed Patient: Keely Avalos MR#: [id number] 4 : 1955 Acct:[id number] Age/Sex: 67 / F ADM Date: 11/06/22 Loc: MR Room: Type: [facility] [facility] Attending Dr: Ino Perkins MD Copies to: Ino Perkins MD Ordering Provider: Ino Prekins MD Date of Service: 11/06/22 MR/MR thoracic spine wo con: Thoracic spondylosis;Mid back pain MR thoracic spine wo con 11/06/2022 11:23 AM SIGNS AND SYMPTOMS: Mid back pain radiating to left scapula PROTOCOL: Multiplanar multisequence MR images of the thoracic spine were obtained without IV contrast. COMPARISON: None. FINDINGS: The bones of the thoracic spine are in anatomic alignment. There is mild disc height loss at T5-T6 and T6-T7. Modic type II fatty endplate degenerative change is noted at these levels. This is also present to a lesser extent at T8-T9 and T9-10, T10-T11, T11-T12, and T12-L1. There is mild depression of the superior endplate at L1No epidural or paraspinous fluid collection is appreciated. The visualized paraspinous soft tissues are within normal limits. At T1-T2: There is a normal disc, central canal, and neural foramen. At T2-T3: There is a normal disc, central canal, and neural foramen. At T3-T4: There is a normal disc, central canal, and neural foramen. At T4-T5: There is a normal disc, central canal, and neural foramen. At T5-T6: There is a normal disc, central canal, and neural foramen. At T6-T7: There is a normal disc, central canal, and neural foramen. At T7-T8: There is a normal disc, central canal, and neural foramen. At T8-T9: There is a normal disc, central canal, and neural foramen. At T9-T10: There is a normal disc, central canal, and neural foramen. At T10-T11: There is a normal disc, central canal, and neural foramen. At T11-T12: There is a normal disc, central canal, and neural foramen. At T12-L1: There is a normal disc, central canal, and neural foramen. MR/MR thoracic spine wo con IMPRESSION: No cord compression or cord signal abnormality. Mild disc and endplate degenerative changes are noted throughout the mid and lower thoracic spine, as above. There is a remote compression deformity of the superior endplate at L1. Impression dictated by: Camden Rm M.D.11/06/2022 2:11 PM Dictation Location: [place] [address] Transcribed By: [facility] 11/06/22 1411 Dictated By: Camden Rm II, MD 11/06/22 1404 Signed By: 11/06/22 1411 [facility] Office Visit (Cardiology)on 04-11-2022 Follow-up visit Diagnoses/Problems Assessed Abnormal EKG (794.31) (R94.31) Dyspnea (786.09) (R06.00) Diabetes (250.00) (E11.9) Body mass index (BMI) of 22.0 to 22.9 in adult (V85.1) (Z68.22) COPD (chronic obstructive pulmonary disease) (496) (J44.9) Current smoker (305.1) (F17.200) 2 packs daily Orders SocHx: Current smoker Tobacco Use Screening; Status:Complete; Done: 11Apr2022 You need to quit smoking.; Status:Complete - Retrospective Authorization; Done: 11Apr2022 You need to stop smoking. Though it is not easy, more than half of all adult smokers have quit. We encourage you to write down all the reasons you should quit smoking and set a quit date for yourself. Ask us how we can help. You may also call 8-251-WROPBaseTraceNOW for free resources and assistance.; Status:Complete - Retrospective Authorization; Done: 11Apr2022 Patient Instructions Please bring all medicines, vitamins, and herbal supplements with you when you come to the office. Prescriptions will not be filled unless you are compliant with your follow up appointments or have a follow up appointment scheduled as per instruction of your physician. Refills should be requested at the time of your visit. Follow up as needed only Chief Complaint KEELY AVALOS is being seen for a 3 month follow-up of. History of Present Illness Patient here for follow-up to management for recent evaluation for shortness of breath, abnormal EKG, tobacco use and diabetes mellitus. Since last time I saw her she reports he feels well. She does not complain of dyspnea, palpitation, lightheadedness, dizziness or syncope. Recent stress test was negative. She underwent cholecystectomy without any cardiac issues. Assessment 1. Complaint of shortness of breath with abnormal EKG. Recent stress test was negative for myocardial ischemia and preserved LV systolic function 2. Tobacco use and COPD 3. Abnormal EKG 4. Gallbladder disease status post recent cholecystectomy palpitation 5. Diabetes mellitus plan 1. I reviewed with the patient as above her stress test 2. The patient was counseled regarding smoking cessation 3. I recommended follow-up in the future on as-needed basis Surgical History Problems History of Cholecystectomy Current Meds Medication NameInstruction Combivent Respimat 20-100 MCG/ACT Inhalation Aerosol SolutionAs directed. DULoxetine HCl - 30 MG Oral Capsule Delayed Release ParticlesTAKE 1 CAPSULE Daily Gabapentin 600 MG Oral TabletTAKE 1 TABLET TWICE DAILY. metFORMIN HCl - 500 MG Oral TabletTAKE 1 TABLET EVERY 12 HOURS WITH FOOD. metroNIDAZOLE 250 MG Oral TabletTAKE 1 TABLET 3 times daily Allergies Medication No Known Drug Allergies Recorded By: Magaly Lane; 01/20/2022 9:19:49 AM Social History Problems Current smoker (305.1) (F17.200) 2 packs daily Daily caffeine consumption 2 pepsi's daily. No alcohol use No illicit drug use Review of Systems Constitutional: not feeling tired. Cardiovascular: no intermittent leg claudication and as noted in HPI. Respiratory: shortness of breath during exertion, but no cough and no shortness of breath. Gastrointestinal: no change in bowel habits and no blood in stools. Integumentary: no skin rashes. Neurological: no seizures and no frequent falls. All other systems have been reviewed and are negative for complaint. Vitals Vital Signs Recorded: 11Apr2022 03:35PM Heart Rate66, R Radial [id number], RUE, Sitting Jjwlhadkg13, RUE, Sitting Height5 ft 2 in Mctjtj327 lb BMI Deuihrzdfl96.13 kg/m2 BSA Calculated1.54 Tobacco Usea) Yes Patient encouraged to stop using tobacco productsYes Falls Screening (Age 18+)a) No falls within the last year Physical Exam Constitutional: alert and in no acute distress. Neck: neck is supple, symmetric, trachea midline, no masses and no thyromegaly . Pulmonary: no increased work of breathing or signs of respiratory distress and lungs clear to auscultation. Cardiovascular: carotid pulses 2+ bilaterally with no bruit , JVP was normal, no thrills , regular rhythm, normal S1 and S2, no murmurs , pedal pulses 2+ bilaterally and no edema . Abdomen: abdomen non-tender, no masses and no hepatomegaly . Skin: skin warm and dry, normal skin turgor . Psychiatric judgment and insight is normal and oriented to person, place and time . Signatures Electronically signed by : Yakelin Crowe MD; Apr 11 2022 7:17PM EST (Author) Normal [employer] Tobacco Screening.on 022 Fall risk assessment a) No falls within the last year -[facility] [address] DO Work Phone: Tobacco use status CPHS a) Yes M P-[facility] [address] DO Work Phone: Tobacco Screening. Yes MP-[facility] [address] DO Work Phone: Direct bilirubin measurement Ordered By: Donny Jacobson on 03-31-2022 Bilirubin.direct [Mass/Vol] 0.2 mg/dL 0.0-0.4 [facility] Glucose Glucometer (BldC) [M ass/Vol]Ordered By: Donny Jacobson on 03-31-2022 Glucose [Mass/Vol] 118 mg/dL [facility] Comment on above: Random Glucose Refer ence Range is dependent on time and content of last meal. Glucose of more than 200 mg/dL in a nonstressed, ambulatory subject supports the diagnosis of Diabetes Mellitus. Laboratory - Chemistry and C hemistry - challengeOrdered By: Donny Jacobson on 03-31-2022 Lipase [Catalytic activity/Vol] 32.0 U/L 22-51 [facility] No Panel InformationOrdered By: Donny Jacobson on 03-31-2022 Bedside Glucose Comment Glu2: cleaned meter [facility] Serum or plasma alkaline delmer sphatase measurement (enzymatic activity/volume)Ordered By: Donny Jacobson on 03-31-2022 ALP [Catalytic activity/Vol] 90 U/L 32-92 [facility] Serum or plasma amylase augustin urement (enzymatic activity/volume)Ordered By: Donny Jacobson on 03-31-2022 Amylase [Catalytic activity/Vol] 44 U/L 28-100 [facility] Serum or plasma aspartate am inotransferase measurement (enzymatic activity/volume)Ordered By: Donny Jacobson on 03-31-2022 AST [Catalytic activity/Vol] 18 U/L 10-42 [facility] Serum or plasma non-glucuron idated bilirubin measurement (mass/volume)Ordered By: Donny Jacboson on 03-31-2022 Bilirubin.indirect [Mass/Vol] 0.5 mg/dL [facility] Serum or plasma total biliru bin measurement (mass/volume)Ordered By: Donny Jacobson on 03-31-2022 Bilirubin [Mass/Vol] 0.7 mg/dL 0.3-1.2 [facility] COVID-19 Positive/NegativeOr dered By: Donny Jacobson on 03-29-2022 SARS-CoV-2 (COVID-19) N gene CRISTOPHER+probe Ql (Resp) Negative Negative [facility] Comment on above: Testing for SARS-CoV -2 by RT-PCRThis test was developed and its performance characteristics determined by [employer] (UYA[employer]) and validated at the [facility]. This test has not been FDA cleared or approved. This test has been authorized by FDA under an Emergency Use Authorization (EUA). This test has been validated in accordance with the FDA's Guidance Document (Policy for Diagnostics Testing in Laboratories Certified to Perform High Complexity Testing under CLIA prior to Emergency Use Authorization for Coronavirus Disease-2019 during the Public Health Emergency) issued on October 02, 2019. This test is only authorized for the duration of time the declaration that circumstances exist justifying the authorization of the emergency use of in vitro diagnostic tests for detection of SARS-CoV-2 virus and/or diagnosis of COVID-19 infection under section 564(b)(1) of the Act, 21 U.S.C. 360bbb-3(b)(1), unless the authorization is terminated or revoked sooner. Basophils Auto (Bld) [#/Vol] Ordered By: Donny Jacobson on 03-17-2022 Basophils (Bld) [#/Vol] 0.1 10*3/uL 0.0-0.2 [facility] Basophils/100 WBC Auto (Bld) Ordered By: Donny Jacobson on 03-17-2022 Basophils/100 WBC (Bld) 1.0 % . [facility] Blood hemoglobin measurement (mass/volume)Ordered By: Donny Jacobson on 03-17-2022 Hemoglobin (Bld) [Mass/Vol] 15.1 g/dL 11.8-15.4 [facility] Blood leukocytes automated c ount (number/volume)Ordered By: Donny Jacobson on 03-17-2022 WBC (Bld) [#/Vol] 5.5 10*3/uL 4.5-11.0 [facility] Creatinine and Glomerular fi ltration rate.predicted panel (S/P/Bld)Ordered By: Donny Jacobson on 03-17-2022 Creatinine [Mass/Vol] 0.57 mg/dL 0.44-1.03 [facility] Eosinophils Auto (Bld) [#/Vo l]Ordered By: Donny Jacobson on 03-17-2022 Eosinophils (Bld) [#/Vol] 0.3 10*3/uL 0.0-0.45 [facility] Eosinophils/100 WBC Auto (Bl d)Ordered By: Donny Jacobson on 03-17-2022 Eosinophils/100 WBC (Bld) 4.9 % . [facility] Erythrocyte distribution wid th Auto (RBC) [Ratio]Ordered By: Donny Jacobson on 03-17-2022 Erythrocyte distribution width (RBC) [Ratio] 13.6 % 11.9-15.3 [facility] Estimated glomerular filtrat ion rate (GFR) non- AmericanOrdered By: Donny Jacobson on 03-17-2022 GFR/1.73 sq M.predicted among non-blacks MDRD (S/P/Bld) [Vol rate/Area] > 60 mL/Min [facility] Hematocrit Auto (Bld) [Volum e fraction]Ordered By: Donny Jacobson on 03-17-2022 Hematocrit (Bld) [Volume fraction] 44.5 % 34.0-46.4 [facility] Laboratory - Hematology and Cell countsOrdered By: Donny Jacobson on 03-17-2022 Nucleated RBC/100 WBC (Bld) [Ratio] 0.0 % 0-0.5 [facility] Lymphocytes Auto (Bld) [#/Vo l]Ordered By: Donny Jacobson on 03-17-2022 Lymphocytes (Bld) [#/Vol] 2.2 10*3/uL 1.00-4.8 [facility] Lymphocytes/100 WBC Auto (Bl d)Ordered By: Donny Jacobson on 03-17-2022 Lymphocytes/100 WBC (Bld) 40.1 % . [facility] MCH Auto (RBC) [Entitic mass ]Ordered By: Donny Jacobson on 03-17-2022 MCH (RBC) [Entitic mass] 31.2 pg 24.7-34.3 [facility] MCHC Auto (RBC) [Mass/Vol]Or dered By: Donny Jacobson on 03-17-2022 MCHC (RBC) [Mass/Vol] 33.9 g/dL 32.0-35.0 [facility] MCV Auto (RBC) [Entitic vol] Ordered By: Donny Jacobson on 03-17-2022 MCV (RBC) [Entitic vol] 92.0 fL 80-100 [facility] Monocytes Auto (Bld) [#/Vol] Ordered By: Donny Jacobson on 03-17-2022 Monocytes (Bld) [#/Vol] 0.4 10*3/uL 0.0-0.8 [facility] Monocytes/100 WBC Auto (Bld) Ordered By: Donny Jacobson on 03-17-2022 Monocytes/100 WBC (Bld) 8.1 % . [facility] Neutrophils Auto (Bld) [#/Vo l]Ordered By: Donny Jacobson on 03-17-2022 Neutrophils (Bld) [#/Vol] 2.5 10*3/uL 1.8-7.7 [facility] Neutrophils/100 WBC Auto (Bl d)Ordered By: Donny Jacobson on 03-17-2022 Neutrophils/100 WBC (Bld) 45.9 % . [facility] No Panel InformationOrdered By: Donny Jacobson on 03-17-2022 Estimated GFR () > 60 mL/Min [facility] Comment on above: GFR estimated refere nce range: According to KDOQI guidelines, <60 ml/min/1.73m2 is sufficient to diagnose a patient with chronic kidney disease. Pharmacy Creatinine Clearance (Chem N/A [facility] Platelet mean volume Auto (B ld) [Entitic vol]Ordered By: Donny Jacobson on 03-17-2022 Platelet mean volume (Bld) [Entitic vol] 9.4 fL 6.3-10.7 [facility] Platelets Auto (Bld) [#/Vol] Ordered By: Donny Jacobson on 03-17-2022 Platelets (Bld) [#/Vol] 200 10*3/uL 150-450 [facility] RBC Auto (Bld) [#/Vol]Ordere d By: Donny Jacobson on 03-17-2022 RBC (Bld) [#/Vol] 4.84 10*6/uL 3.60-5.00 [facility] Serum or plasma anion gap de terminationOrdered By: Donny Jacobson on 03-17-2022 Anion gap [Moles/Vol] 11.1 mmol/L 6.0-15.0 [facility] Serum or plasma calcium augustin urement (mass/volume)Ordered By: Donny Jacobson on 03-17-2022 Calcium [Mass/Vol] 9.2 mg/dL 8.2-10.2 [facility] Serum or plasma chloride sudha surement (moles/volume)Ordered By: Donny Jacobson on 03-17-2022 Chloride [Moles/Vol] 101 mmol/L 95-114 [facility] Serum or plasma glucose augustin urement (mass/volume)Ordered By: Donny Jacobson on 03-17-2022 Glucose [Mass/Vol] 187 mg/dL 70-100 [facility] Comment on above: ADA recommended refe rence range Random Glucose Reference Range is dependent on time and content of last meal. Glucose of more than 200 mg/dL in a nonstressed, ambulatory subject supports the diagnosis of Diabetes Mellitus. ADA recommended refe rence rangeRandom Glucose Reference Range is dependent on time and content of last meal. Glucose of more than 200 mg/dL in a nonstressed, ambulatory subject supports the diagnosis of Diabetes Mellitus. Serum or plasma potassium me asurement (moles/volume)Ordered By: Donny Jacobson on 03-17-2022 Potassium [Moles/Vol] 3.5 mmol/L 3.5-5.1 [facility] Serum or plasma sodium measu rement (moles/volume)Ordered By: Donny Jacobson on 03-17-2022 Sodium [Moles/Vol] 136 mmol/L 136-146 [facility] Serum or plasma total carbon dioxide measurement (moles/volume)Ordered By: Donny Jacobson on 03-17-2022 CO2 [Moles/Vol] 27.4 mmol/L 22.0-30.0 [facility] Serum or plasma urea nitroge n measurement (mass/volume)Ordered By: Donny Jacobson on 03-17-2022 Urea nitrogen [Mass/Vol] 8 mg/dL 03-24 [facility] No Panel Informationon 03-02 Normal Located within [facility] [address] DO Work Phone: No Panel Informationon 02-24 Located within [facility] [address] DO Work Phone: Office Visit (Cardiology)on 01-20-2022 Follow-up visit Diagnoses/Problems Assessed Dyspnea (786.09) (R06.00) Preop cardiovascular exam (V72.81) (Z01.810) Abnormal EKG (794.31) (R94.31) COPD (chronic obstructive pulmonary disease) (496) (J44.9) Diabetes (250.00) (E11.9) Current smoker (305.1) (F17.200) 2 packs daily Body mass index (BMI) of 22.0 to 22.9 in adult (V85.1) (Z68.22) Orders Abnormal EKG, Dyspnea, Preop cardiovascular exam NM Cardiac Stress/Rest Nuclear Med Order; Status:Hold For - Scheduling,Retrospecti ve Authorization; Requested for:[id number]; Radiologist to Determine Optimal Study : Y What are the patient's signs and symptoms? : dyspnea - abn ekg - poc Preop cardiovascular exam IO EKG Electrocardiogram- 12 Lead; Status:Complete; Done: [id number] SocHx: Current smoker You need to stop smoking. Though it is not easy, more than half of all adult smokers have quit. We encourage you to write down all the reasons you should quit smoking and set a quit date for yourself. Ask us how we can help. You may also call 8-165-ROUN-NOW for free resources and assistance.; Status:Complete - Retrospective Authorization; Done: [id number] Tobacco Use Screening; Status:Complete; Done: [id number] Patient Instructions Please bring all medicines, vitamins, and herbal supplements with you when you come to the office. Prescriptions will not be filled unless you are compliant with your follow up appointments or have a follow up appointment scheduled as per instruction of your physician. Refills should be requested at the time of your visit. Follow up in [ 3] months I, Dona Baldwin LPN, am scribing for and in the presence of, Dr. Yakelin Crowe MD Chief Complaint KEELY AVALOS is being seen for a consultation for pre-operative clearance and Dr. Jacobson- Gallbladder. History of Present Illness Patient is here for cardiovascular evaluation for preoperative risk assessment requested by Dr. Ibarra. She denies any previous cardiac history. She was diagnosed recently with gallbladder disease and scheduled to undergo surgery. She was noted to have abnormal EKG showing ischemic ST-T changes. Patient admits to limited exercise tolerance. She is a long-term smoker. She does have dyspnea on exertion. She is Functional class II. EKG showed diffuse lateral ST-T changes. The patient was diagnosed recently with diabetes mellitus. She denies any previous history of coronary artery disease, congestive heart failure or valvular heart disease. The patient denies any previous cardiac testing. Assessment 1. Complaint of shortness of breath with abnormal EKG consistent with ischemic ST-T changes. It is imperative to exclude underlying ischemic heart disease prior to surgery 2. Tobacco use and COPD 3. Abnormal EKG 4. Gallbladder disease 5. Diabetes mellitus plan 1. I recommended the patient to proceed with Lexiscan myocardial fusion study prior to her surgery. The rationale behind that discussed with patient at length she understood and agreed. The patient is self-pay and she was educated and counseled regarding the cost of that 2. The patient was counseled regarding smoking cessation 3. Operative risk assessment will hinge upon the results of the stress test. All of the above reviewed with patient at great length she understood and agreed Surgical History Problems History of Back surgery Denied: History of Complete colonoscopy History of Tubal ligation Current Meds Medication NameInstruction Combivent Respimat 20-100 MCG/ACT Inhalation Aerosol SolutionAs directed. DULoxetine HCl - 30 MG Oral Capsule Delayed Release ParticlesTAKE 1 CAPSULE Daily Gabapentin 600 MG Oral TabletTAKE 1 TABLET TWICE DAILY. metFORMIN HCl - 500 MG Oral TabletTAKE 1 TABLET EVERY 12 HOURS WITH FOOD. metroNIDAZOLE 250 MG Oral TabletTAKE 1 TABLET 3 times daily Allergies Medication No Known Drug Allergies Recorded By: Magaly Lane; 01/20/2022 9:19:49 AM Social History Problems Current smoker (305.1) (F17.200) 2 packs daily Daily caffeine consumption 2 pepsi's daily. No alcohol use No illicit drug use Review of Systems Cardiovascular: shortness of breath. Respiratory: shortness of breath. Constitutional: not feeling tired. Cardiovascular: no intermittent leg claudication and as noted in HPI. Respiratory: shortness of breath, but no cough. Gastrointestinal: no change in bowel habits and no blood in stools. Integumentary: no skin rashes. Neurological: no seizures and no frequent falls. All other systems have been reviewed and are negative for complaint. Vitals Vital Signs Recorded: [id number] 09:26AMRecorded: [id number] 09:25AM Ounboxga556, LUE, Aswzyjb668, RUE, Sitting Eygytxzoo07, LUE, Ofubgtn28, RUE, Sitting Heart Rate66, Apical Height5 ft 2 in Mwltan166 lb BMI Vabmvowtpc15.68 kg/m2 BSA Calculated1.56 Tobacco Usea) Yes Patient encouraged to stop using tobacco productsYes PHQ-2 #1. Over the last 2 weeks have you felt down, depressed or hopele (more content not included)... [facility] Scre[facility].on 022 Adult depression screening assessment No Located within [facility] [employer] DO Work Phone: Fall risk assessment c) Not medically indicated Located within [facility] [employer] DO Work Phone: [phone] Tobacco use status CPHS a) Yes M [facility] 250 DO Work Phone: Tobacco Screening. Yes [facility] 250 DO Work Phone: Basophils Auto (Bld) [#/Vol] Ordered By: Donny Jacobson on 01-18-2022 Basophils (Bld) [#/Vol] 0.0 10*3/uL 0.0-0.2 [facility] Basophils/100 WBC Auto (Bld) Ordered By: Donny Jacobson on 01-18-2022 Basophils/100 WBC (Bld) 0.6 % . [facility] Blood hemoglobin measurement (mass/volume)Ordered By: Donny Jacobson on 01-18-2022 Hemoglobin (Bld) [Mass/Vol] 15.3 g/dL 11.8-15.4 [facility] Blood leukocytes automated c ount (number/volume)Ordered By: Donny Jacobson on 01-18-2022 WBC (Bld) [#/Vol] 6.0 10*3/uL 4.5-11.0 [facility] Creatinine and Glomerular fi ltration rate.predicted panel (S/P/Bld)Ordered By: Donny Jacobson on 01-18-2022 Creatinine [Mass/Vol] 0.55 mg/dL 0.44-1.03 [facility] Eosinophils Auto (Bld) [#/Vo l]Ordered By: Donny Jacobson on 01-18-2022 Eosinophils (Bld) [#/Vol] 0.2 10*3/uL 0.0-0.45 [facility] Eosinophils/100 WBC Auto (Bl d)Ordered By: Donny Jacobson on 01-18-2022 Eosinophils/100 WBC (Bld) 2.7 % . [facility] Erythrocyte distribution wid th Auto (RBC) [Ratio]Ordered By: Donny Jacobson on 01-18-2022 Erythrocyte distribution width (RBC) [Ratio] 12.8 % 11.9-15.3 [facility] Estimated glomerular filtrat ion rate (GFR) non- AmericanOrdered By: Donny Jacobson on 01-18-2022 GFR/1.73 sq M.predicted among non-blacks MDRD (S/P/Bld) [Vol rate/Area] > 60 mL/Min [facility] Hematocrit Auto (Bld) [Volum e fraction]Ordered By: Donny Jacobson on 01-18-2022 Hematocrit (Bld) [Volume fraction] 44.8 % 34.0-46.4 [facility] Laboratory - Hematology and Cell countsOrdered By: Donny Jacobson on 01-18-2022 Nucleated RBC/100 WBC (Bld) [Ratio] 0.1 % 0-0.5 [facility] Lymphocytes Auto (Bld) [#/Vo l]Ordered By: Donny Jacobson on 01-18-2022 Lymphocytes (Bld) [#/Vol] 2.3 10*3/uL 1.00-4.8 [facility] Lymphocytes/100 WBC Auto (Bl d)Ordered By: Donny Jacobson on 01-18-2022 Lymphocytes/100 WBC (Bld) 38.2 % . [facility] MCH Auto (RBC) [Entitic mass ]Ordered By: Donny Jacobson on 01-18-2022 MCH (RBC) [Entitic mass] 31.1 pg 24.7-34.3 [facility] MCHC Auto (RBC) [Mass/Vol]Or dered By: Donny Jacobson on 01-18-2022 MCHC (RBC) [Mass/Vol] 34.1 g/dL 32.0-35.0 [facility] MCV Auto (RBC) [Entitic vol] Ordered By: Donny Jacobson on 01-18-2022 MCV (RBC) [Entitic vol] 91.1 fL 80-100 [facility] Monocytes Auto (Bld) [#/Vol] Ordered By: Donny Jacobson on 01-18-2022 Monocytes (Bld) [#/Vol] 0.6 10*3/uL 0.0-0.8 [facility] Monocytes/100 WBC Auto (Bld) Ordered By: Donny Jacobson on 01-18-2022 Monocytes/100 WBC (Bld) 9.9 % . [facility] Neutrophils Auto (Bld) [#/Vo l]Ordered By: Donny Jacobson on 01-18-2022 Neutrophils (Bld) [#/Vol] 2.9 10*3/uL 1.8-7.7 [facility] Neutrophils/100 WBC Auto (Bl d)Ordered By: Donny Jacobson on 01-18-2022 Neutrophils/100 WBC (Bld) 48.6 % . [facility] No Panel InformationOrdered By: Donny Jacobson on 01-18-2022 Estimated GFR () > 60 mL/Min [facility] Comment on above: GFR estimated refere nce range: According to KDOQI guidelines, <60 ml/min/1.73m2 is sufficient to diagnose a patient with chronic kidney disease. Pharmacy Creatinine Clearance (Chem N/A [facility] Platelet mean volume Auto (B ld) [Entitic vol]Ordered By: Donny Jacobson on 01-18-2022 Platelet mean volume (Bld) [Entitic vol] 9.4 fL 6.3-10.7 [facility] Platelets Auto (Bld) [#/Vol] Ordered By: Donny Jacobson on 01-18-2022 Platelets (Bld) [#/Vol] 242 10*3/uL 150-450 [facility] RBC Auto (Bld) [#/Vol]Ordere d By: Donny Jacobson on 01-18-2022 RBC (Bld) [#/Vol] 4.91 10*6/uL 3.60-5.00 [facility] Serum or plasma calcium augustin urement (mass/volume)Ordered By: Donny Jacobson on 01-18-2022 Calcium [Mass/Vol] 9.0 mg/dL 8.2-10.2 [facility] Serum or plasma chloride sudha surement (moles/volume)Ordered By: Donny Jacobson on 01-18-2022 Chloride [Moles/Vol] 101 mmol/L 95-114 [facility] Serum or plasma glucose augustin urement (mass/volume)Ordered By: Donny Jacobson on 01-18-2022 Glucose [Mass/Vol] 160 mg/dL 70-100 [facility] Comment on above: ADA recommended refe rence range Random Glucose Reference Range is dependent on time and content of last meal. Glucose of more than 200 mg/dL in a nonstressed, ambulatory subject supports the diagnosis of Diabetes Mellitus. ADA recommended refe rence rangeRandom Glucose Reference Range is dependent on time and content of last meal. Glucose of more than 200 mg/dL in a nonstressed, ambulatory subject supports the diagnosis of Diabetes Mellitus. Serum or plasma potassium me asurement (moles/volume)Ordered By: Donny Jacobson on 01-18-2022 Potassium [Moles/Vol] 3.5 mmol/L 3.5-5.1 [facility] Serum or plasma sodium measu rement (moles/volume)Ordered By: Donny Jacobson on 01-18-2022 Sodium [Moles/Vol] 134 mmol/L 136-146 [facility] Serum or plasma total carbon dioxide measurement (moles/volume)Ordered By: Donny Jacobson on 01-18-2022 CO2 [Moles/Vol] 24.2 mmol/L 22.0-30.0 [facility] Serum or plasma urea nitroge n measurement (mass/volume)Ordered By: Donny Jacobson on 01-18-2022 Urea nitrogen [Mass/Vol] 6 mg/dL 9-23 [facility] NM HEPATOBILIARY SCANon 11-30 NM HEPATOBILIARY SCAN EXAMINATION: NM HEPATOBILIARY SCAN HISTORY: Right upper quadrant pain COMPARISON: No relevant comparison available. TECHNIQUE: After obtaining the patient's consent, radiopharmaceutical was injected and images obtained sequentially for one hour. 4.7 mCi technetium 99m mebrofenin IV FINDINGS: BILIARY DUCTS: Normal biliary excretion. GALLBLADDER: No filling of the gallbladder despite carrying out study to 4 hours. INTESTINE: Normal with no evidence of common biliary ductal obstruction. OTHER: Negative. IMPRESSION: 1. No filling of gallbladder with radiotracer suggesting obstruction. 2. Patent common bile duct. Electronically authenticated by: RONNY BENÍTEZ Date: 2021-12-16 16:45 Normal [facility] CT ABD/PELVIS WO CONon 12-10 CT ABD/PELVIS WO CON EXAMINATION: CT ABD/PELVIS WO CON, 12/09/2021 2:26 PM EDT HISTORY: Right flank pain COMPARISON: None. TECHNIQUE: CT scan of the abdomen and pelvis was performed without IV contrast. CT dose reduction technique was used, including Automated Exposure Control. FINDINGS: LUNG BASES: Basilar atelectasis. Coronary atherosclerosis. LIVER: No enlargement, atrophy, abnormal density, or significant focal lesion. BILIARY: Calcifications appear to completely fill the gallbladder lumen. No CT evidence of acute cholecystitis PANCREAS: No lesion, fluid collection, ductal dilatation, or atrophy. SPLEEN: No enlargement or focal lesion. ADRENALS: No mass or enlargement. KIDNEYS: No mass, obstruction, or calcification. BOWEL/MESENTERY: Nonobstructive bowel gas pattern. Normal appendix. AORTA/VASCULAR: Focal ectasia or saccular aneurysm of the proximal abdominal aorta measuring a maximum of 2.8 x 2.0 cm axial image 35. Moderate diffuse atherosclerosis RETROPERITONEUM: No mass or adenopathy. LYMPH NODES: No adenopathy. URINARY BLADDER: No visible focal wall thickening, lesion, or calculus. PELVIC ORGANS: Pelvic calcifications, vascular phleboliths are favored. Pelvic floor relaxation with low position of the uterus and urinary bladder ABDOMINAL WALL: No mass or hernia. BONES: 30% anterior wedge compression fracture L1 vertebral body, age indeterminate OTHER: Negative. IMPRESSION: Extensive cholelithiasis without CT evidence of acute cholecystitis No obstructive uropathy Saccular aneurysm of the proximal abdominal aorta measuring a maximum of 2.8 x 2.0 cm Pelvic floor relaxation Electronically authenticated by: ROJAS BERNABE Date: 2021-12-10 08:42 Normal [facility] GLYCOHEMOGLOBIN A1Con 2021 ADA RECOMMENDATION SEE BELOW Normal [facility] Comment on above: Result Comment: ADA RECOMMENDED LIMIT 4.0 - 6.0 ADA THERAPEUTIC TARGET < 7.0 ACTION SUGGESTED > 7.0 Performed By: #### A 1C #### [facility] [address] [place] [address] Dr. Rosario Cameron Glucose [Mass/Vol] 255 mg/dL Normal [facility] Comment on above: Performed By: #### A 1C #### [facility] [address] [address] [address] Rosario Cameron HbA1c (Bld) [Mass fraction] 10.5 % Critically high 4.5-6.2 [facility] Comment on above: Performed By: #### A 1C #### [facility] [address] [place] [address] Dr. Rosario Cameron PROF 14(COMP METB)on 022 Albumin [Mass/Vol] 3.5 g/dL Normal 3.4-5.0 [facility] Comment on above: Performed By: #### C MP #### [facility] [address] [address] [address] Rosario Cameron Albumin/Globulin [Mass ratio] 1.0 {ratio} Normal [facility] Comment on above: Performed By: #### C MP #### [facility] [address] [place] [address] Dr. Rosario Cameron ALP [Catalytic activity/Vol] 118 U/L Critically high 46-116 [facility] Comment on above: Performed By: #### C MP #### [facility] [address] [address] [address] Rosario Cameron ALT [Catalytic activity/Vol] 45 U/L Normal 14-59 [facility] Comment on above: Performed By: #### C MP #### [facility] [address] [address] [address] Rosario Cameron Anion gap [Moles/Vol] 13.1 mmol/L Normal [facility] Comment on above: Performed By: #### C MP #### [facility] [address] [address] [address] Rosario Cameron AST [Catalytic activity/Vol] 24 U/L Normal 15-37 [facility] Comment on above: Performed By: #### C MP #### [facility] [address] [place] [address] Dr. Rosario Cameron Bilirubin [Mass/Vol] 0.5 mg/dL Normal 0.2-1.0 [facility] Comment on above: Performed By: #### C MP #### [facility] [address] [address] [address] Rosario Cameron Calcium [Mass/Vol] 9.0 mg/dL Normal 8.5-10.1 [facility] Comment on above: Performed By: #### C MP #### [facility] [address] [place] [address] Dr. Rosario Cameron Chloride [Moles/Vol] 99 mmol/L Normal 98-107 [facility] Comment on above: Performed By: #### C MP #### [facility] [address] [address] [address] Rosario Cameron CO2 [Moles/Vol] 28.1 mmol/L Normal 21.0-32.0 [facility] Comment on above: Performed By: #### C MP #### [facility] [address] [address] [address] Rosario Cameron Creatinine [Mass/Vol] 0.64 mg/dL Normal 0.55-1.02 [facility] Comment on above: Performed By: #### C MP #### [facility] [address] [address] [address] Rosario Cameron EGFR-AF VENEZUELAN >60 Normal >=60 [facility] Comment on above: Performed By: #### C MP #### [facility] [address] [place] [address] Dr. Rosario Cameron EGFR-NON AF VENEZUELAN >60 Normal >=60 [facility] Comment on above: Performed By: #### C MP #### [facility] [address] [address] [address] Rosario Cameron Globulin (S) [Mass/Vol] 3.6 g/dL Normal [facility] Comment on above: Performed By: #### C MP #### [facility] [address] [place] [address] Dr. Rosario Cameron Glucose [Mass/Vol] 277 mg/dL Critically high 74-106 [facility] Comment on above: Performed By: #### C MP #### [facility] [address] [address] [address] Rosario Cameron Potassium [Moles/Vol] 4.2 mmol/L Normal 3.5-5.1 [facility] Comment on above: Performed By: #### C MP #### [facility] [address] [place] [address] Dr. Rosario Cameron Protein [Mass/Vol] 7.1 g/dL Normal 6.4-8.2 [facility] Comment on above: Performed By: #### C MP #### [facility] [address] [address] [address] Rosario Cameron Sodium [Moles/Vol] 136 mmol/L Normal 136-145 [facility] Comment on above: Performed By: #### C MP #### [facility] [address] [place] [address] Dr. Rosario Cameron Urea nitrogen [Mass/Vol] 10.0 mg/dL Normal 7.0-18.0 [facility] Comment on above: Performed By: #### C MP #### [facility] [address] [place] [address] Dr. Rosario Cameron Urea nitrogen/Creatinine [Mass ratio] 15.6 mg/mg Normal [facility] Comment on above: Performed By: #### C MP #### [facility] [address] [address] [address] Rosario Cameron Vital Signs Date Time Vital Sign Value Performing Clinician Facility 10-02-2023 [id number] Body height 157.5 cm [facility] 10-02-2023 11:0400 Body mass index (BMI) [Ratio] 25.61 kg/m2 [facility] 10-02-2023 11:040 Body weight 63.5 kg Pm 1 [facility] 09-18-2023 13:10-040 Body height 157.5 cm Suzanna Strong FIRE BOAT ENGINEER-MAINFRAME SYSTEMS ADMINISTRATOR Work Phone: [facility] 09-18-2023 13:10-0400 Body mass index (BMI) [Ratio] 25.5 kg/m2 Suzanna Tae [employer]RE BOAT ENGINEER-MAINFRAME SYSTEMS ADMINISTRATOR Work Phone: [facility] 09-18-2023 13:10-0400 Body temperature 98.01 [degF] Suzanna Tae FIRE BOAT ENGINEER-MAINFRAME SYSTEMS ADMINISTRATOR Work Phone: [facility] 09-18-2023 13:10-0400 Body weight 63.23 kg Suzanna Tae FIRE BOAT ENGINEER-MAINFRAME SYSTEMS ADMINISTRATOR Work Phone: [facility] 09-18-2023 13:10-0400 Diastolic blood pressure 60 mm[Hg] Suzanna Tae FIRE BOAT ENGINEER-MAINFRAME SYSTEMS ADMINISTRATOR Work Phone: [facility] 09-18-2023 13:10-0400 Heart rate 68 /min Suzanna Tae FIRE BOAT ENGINEER-MAINFRAME SYSTEMS ADMINISTRATOR Work Phone: [facility] 09-18-2023 13:10-0400 SaO2% (BldA) [Mass fraction] 94 % Suzanna Tae FIRE BOAT ENGINEER-MAINFRAME SYSTEMS ADMINISTRATOR Work Phone: [facility] 09-18-2023 13:10-0400 Systolic blood pressure 112 mm[Hg] Suzanna Strong FIRE BOAT ENGINEER-MAINFRAME SYSTEMS ADMINISTRATOR Work Phone: [facility] 09-17-2023 11:01-0400 Body height 157.5 cm Juan Caro MD Work Phone: [facility] 09-17-2023 11:01-0400 Body mass index (BMI) [Ratio] 26.48 kg/m2 Juan Caro MD Work Phone: [facility] 09-17-2023 11:01-0400 Body weight 65.68 kg Juan Caro MD Work Phone: [facility] 09-17-2023 11:01-0400 Diastolic blood pressure 62 mm[Hg] Juan Caro MD Work Phone: [facility] 09-17-2023 11:01-0400 Heart rate 68 /min Juan Caro MD Work Phone: [facility] 09-17-2023 11:01-0400 SaO2% (BldA) [Mass fraction] 98 % Juan Caro MD Work Phone: [facility] 09-17-2023 11:01-0400 Systolic blood pressure 130 mm[Hg] Juan Caro MD Work Phone: [facility] 08-23-2023 11:26-0500 Body height 157.5 cm Suzanna Strong FIRE BOAT ENGINEER-MAINFRAME SYSTEMS ADMINISTRATOR Work Phone: [facility] 08-23-2023 11:26-0500 Body mass index (BMI) [Ratio] 25.35 kg/m2 Suzanna Strong FIRE BOAT ENGINEER-MAINFRAME SYSTEMS ADMINISTRATOR Work Phone: [facility] 08-23-2023 11:26-0500 Body temperature 97.59 [degF] Suzanna Strong FIRE BOAT ENGINEER-MAINFRAME SYSTEMS ADMINISTRATOR Work Phone: [facility] 08-23-2023 11:26-0500 Body weight 62.87 kg Suzanna Strong FIRE BOAT ENGINEER-MAINFRAME SYSTEMS ADMINISTRATOR Work Phone: [facility] 08-23-2023 11:26-0500 Diastolic blood pressure 56 mm[Hg] Suzanna Strong APRN-MAINFRAME SYSTEMS ADMINISTRATOR Work Phone: [facility] 08-23-2023 11:26-0500 Heart rate 63 /min Suzanna Strong APRN-MAINFRAME SYSTEMS ADMINISTRATOR Work Phone: [facility] 08-23-2023 11:26-0500 SaO2% (BldA) [Mass fraction] 96 % Suzanna Strong APRN-MAINFRAME SYSTEMS ADMINISTRATOR Work Phone: [facility] 08-23-2023 11:26-0500 Systolic blood pressure 110 mm[Hg] Suzanna Strong APRN-MAINFRAME SYSTEMS ADMINISTRATOR Work Phone: [facility] 08-08-2023 13:35-0500 Body height 157.5 cm Suzanna Strong APRN-MAINFRAME SYSTEMS ADMINISTRATOR Work Phone: [facility] 08-08-2023 13:35-0500 Body mass index (BMI) [Ratio] 25.79 kg/m2 Suzanna Strong FIRE BOAT ENGINEER-MAINFRAME SYSTEMS ADMINISTRATOR Work Phone: [facility] 08-08-2023 13:35-0500 Body temperature 97.59 [degF] Suzanna Strong APRN-MAINFRAME SYSTEMS ADMINISTRATOR Work Phone: [facility] 08-08-2023 13:35-0500 Body weight 63.96 kg Suzanna Strong APRN-MAINFRAME SYSTEMS ADMINISTRATOR Work Phone: [facility] 08-08-2023 13:35-0500 Diastolic blood pressure 60 mm[Hg] Suzanna Strong FIRE BOAT ENGINEER-MAINFRAME SYSTEMS ADMINISTRATOR Work Phone: [facility] 08-08-2023 13:35-0500 Heart rate 78 /min Suzanna Strong APRN-MAINFRAME SYSTEMS ADMINISTRATOR Work Phone: [facility] 08-08-2023 13:35-0500 SaO2% (BldA) [Mass fraction] 92 % Suzanna Strong APRN-MAINFRAME SYSTEMS ADMINISTRATOR Work Phone: [facility] 08-08-2023 13:35-0500 Systolic blood pressure 110 mm[Hg] Suzanna Strong APRN-MAINFRAME SYSTEMS ADMINISTRATOR Work Phone: [facility] 07-24-2023 13:11-0500 Body height 157.5 cm Suzanna Strong APRN-MAINFRAME SYSTEMS ADMINISTRATOR Work Phone: [facility] 07-24-2023 13:11-0500 Body mass index (BMI) [Ratio] 26.05 kg/m2 Suzanna Strong APRN-MAINFRAME SYSTEMS ADMINISTRATOR Work Phone: [facility] 07-24-2023 13:11-0500 Body temperature 97.7 [degF] Suzanna Strong APRN-MAINFRAME SYSTEMS ADMINISTRATOR Work Phone: [facility] 07-24-2023 13:11-0500 Body weight 64.59 kg Suzanna MATTHEWMAINFRAME SYSTEMS ADMINISTRATOR Work Phone: [facility] 07-24-2023 13:11-0500 Diastolic blood pressure 62 mm[Hg] Suzanna Strong APRN-MAINFRAME SYSTEMS ADMINISTRATOR Work Phone: [facility] 07-24-2023 13:11-0500 Heart rate 70 /min Suzanna MATTHEWMAINFRAME SYSTEMS ADMINISTRATOR Work Phone: [facility] 07-24-2023 13:11-0500 SaO2% (BldA) [Mass fraction] 95 % Suzanna MATTHEWMAINFRAME SYSTEMS ADMINISTRATOR Work Phone: [facility] 07-24-2023 13:11-0500 Systolic blood pressure 98 mm[Hg] uSzanna Strong APRNBandarMAINFRAME SYSTEMS ADMINISTRATOR Work Phone: [facility] 02-08-2023 09:45-0400 Body height 157.48 cm VickiePyreg Other [employer] Other 02-08-2023 09:45-0400 Body mass index (BMI) [Ratio] 25.24 kg/m2 VickiePyreg Other [employer] Other 02-08-2023 09:45-0400 Body weight 62.6 kg Vickie Ayon Other [employer] Other 02-08-2023 09:45-0400 Diastolic blood pressure 60 mm[Hg] Vickie Yaon Other [employer] Other 02-08-2023 09:45-0400 Systolic blood pressure 120 mm[Hg] Vickie Ayon Other [employer] Other 01-10-2023 13:45-0400 Body height 157.48 cm Ino Perkins Other [employer] Other 01-10-2023 13:45-0400 Diastolic blood pressure 78 mm[Hg] Ino Perkins Other [employer] Other 01-10-2023 13:45-0400 SaO2% (BldA) [Mass fraction] 96 % Ino Perkins Other [employer] Other 01-10-2023 13:45-0400 Systolic blood pressure 132 mm[Hg] Ino Perkins Other [employer] Other 01-03-2023 10:19-0400 Diastolic blood pressure 68 mm[Hg] DO Hayden House Work Phone: [facility] 01-03-2023 10:19-0400 Heart rate 68 /min DO Hayden House Work Phone: [facility] 01-03-2023 10:19-0400 Respiratory rate 16 /min DO Hayden House Work Phone: [facility] 01-03-2023 10:19-0400 SaO2% (BldA) [Mass fraction] 95 % DO Hayden House Work Phone: [facility] 01-03-2023 10:19-0400 Systolic blood pressure 133 mm[Hg] DO Hayden House Work Phone: [facility] 01-03-2023 09:17-0400 Body height 157.48 cm DO Hayden House Work Phone: [facility] 01-03-2023 09:17-0400 Body weight 60.32 kg DO Hayden House Work Phone: [facility] 12-18-2022 10:00-0400 Body height 157.48 cm Ino Perkins Other [employer] Other 12-18-2022 10:00-0400 Diastolic blood pressure 80 mm[Hg] Ino Perkins Other [employer] Other 12-18-2022 10:00-0400 SaO2% (BldA) [Mass fraction] 93 % Ino Perkins Other [employer] Other 12-18-2022 10:00-0400 Systolic blood pressure 142 mm[Hg] Ino Perkins Other [employer] Other 12-06-2022 13:45-0400 Diastolic blood pressure 64 mm[Hg] DO Hayden House Work Phone: [facility] 12-06-2022 13:45-0400 Heart rate 60 /min DO Hayden House Work Phone: [facility] 12-06-2022 13:45-0400 Respiratory rate 16 /min DO Hayden House Work Phone: [facility] 12-06-2022 13:45-0400 SaO2% (BldA) [Mass fraction] 96 % DO Hayden House Work Phone: [facility] 12-06-2022 13:45-0400 Systolic blood pressure 130 mm[Hg] DO Hayden Dodson Work Phone: [facility] 12-06-2022 12:31-0400 Body height 157.48 cm DO Hayden Dodson Work Phone: [facility] 12-06-2022 12:31-0400 Body weight 60.32 kg DO Hayden Dodson Work Phone: [facility] 10-23-2022 10:15-0400 Body height 157.48 cm Ino Perkins Other [facility] [employer] Other 10-23-2022 10:15-0400 Diastolic blood pressure 82 mm[Hg] Ino Perkins Other [employer] Other 10-23-2022 10:15-0400 SaO2% (BldA) [Mass fraction] 94 % Ino Perkins Other [employer] Other 10-23-2022 10:15-0400 Systolic blood pressure 146 mm[Hg] Ino Perkins Other [employer] Other 09-21-2022 16:00-0400 Body height 157.48 cm Ino Perkins Other [employer] Other 09-21-2022 16:00-0400 Body mass index (BMI) [Ratio] 22.86 kg/m2 Ino Perkins Other [employer] Other 09-21-2022 16:00-0400 Body weight 56.7 kg Ino Perkins Other [employer] Other 09-21-2022 16:00-0400 Diastolic blood pressure 70 mm[Hg] Ino Perkins Other [employer] Other 09-21-2022 16:00-0400 Systolic blood pressure 140 mm[Hg] Ino Perkins Other [employer] Other 05-15-2022 12:00-0500 Body height 157.48 cm Ino Perkins Other [employer] Other 05-15-2022 12:00-0500 Body mass index (BMI) [Ratio] 22.86 kg/m2 Ino Perkins Other [employer] Other 05-15-2022 12:00-0500 Body weight 56.7 kg Ino Perkins Other [employer] Other 05-15-2022 12:00-0500 Diastolic blood pressure 70 mm[Hg] Ino Perkins Other [employer] Other 05-15-2022 12:00-0500 SaO2% (BldA) [Mass fraction] 97 % Ino Perkins Other [employer] Other 05-15-2022 12:00-0500 Systolic blood pressure 140 mm[Hg] Ino Perkins Other [employer] Other 04-11-2022 15:35-0400 Body height 157.48 cm Hayden P House Work Phone: Loc[facility] [employer] 250 DO Work Phone: 04-11-2022 15:35-0400 Body mass index (BMI) [Ratio] 22.13 kg/m2 Hayden P House Work Phone: [facility] 250 DO Work Phone: 04-11-2022 15:35-0400 Body surface area Derived from formula 1.54 m2 Hayden P House Work Phone: [facility] 250 DO Work Phone: 04-11-2022 15:35-0400 Body weight 54.89 kg Hayden P House Work Phone: [facility] 250 DO Work Phone: 04-11-2022 15:35-0400 Diastolic blood pressure 84 mm[Hg] Hayden P House Work Phone: [facility] 250 DO Work Phone: 04-11-2022 15:35-0400 Heart rate 66 /min Hayden P House Work Phone: [facility] 250 DO Work Phone: 04-11-2022 15:35-0400 Systolic blood pressure 136 mm[Hg] Hayden P House Work Phone: [facility] 250 DO Work Phone: 03-31-2022 17:26-0400 Diastolic blood pressure 70 mm[Hg] DO Hayden House Work Phone: [facility] 03-31-2022 17:26-0400 Heart rate 65 /min DO Hayden House Work Phone: [facility] 03-31-2022 17:26-0400 Respiratory rate 18 /min DO Hayden House Work Phone: [facility] 03-31-2022 17:26-0400 SaO2% (BldA) [Mass fraction] 93 % DO Hayden House Work Phone: [facility] 03-31-2022 17:26-0400 Systolic blood pressure 126 mm[Hg] DO Hayden House Work Phone: [facility] 03-31-2022 16:05-0400 Body temperature 97.7 [degF] DO Hayden House Work Phone: [facility] 03-31-2022 15:33-0400 Body height 157.48 cm DO Hayden House Work Phone: [facility] 03-31-2022 15:33-0400 Body mass index (BMI) [Ratio] 22.6 kg/m2 DO Hayden House Work Phone: [facility] 03-31-2022 15:33-0400 Body weight 56 kg DO Hayden House Work Phone: [facility] 02-24-2022 12:01-0400 Diastolic blood pressure 64 mm[Hg] DO Donny Laffay Work Phone: [facility] 02-24-2022 12:01-0400 Heart rate 52 /min DO Donny Laffay Work Phone: [facility] 02-24-2022 12:01-0400 Systolic blood pressure 116 mm[Hg] DO Donny Laffay Work Phone: [facility] 02-24-2022 00:00-0400 71 1 Hayden P House Work Phone: [facility] 250 DO Work Phone: Comment on above: [id number] 01-20-2022 09:26-0400 Diastolic blood pressure 50 mm[Hg] Hayden P House Work Phone: [facility] 250 DO Work Phone: 01-20-2022 09:26-0400 Systolic blood pressure 118 mm[Hg] Hayden P House Work Phone: [facility] 250 DO Work Phone: 01-20-2022 09:25-0400 Body height 157.48 cm Hayden P House Work Phone: [facility] 250 DO Work Phone: 01-20-2022 09:25-0400 Body mass index (BMI) [Ratio] 22.68 kg/m2 Hayden P House Work Phone: [facility] 250 DO Work Phone: 01-20-2022 09:25-0400 Body surface area Derived from formula 1.56 m2 Hayden P House Work Phone: [facility] 250 DO Work Phone: 01-20-2022 09:25-0400 Body weight 56.25 kg Hayden P House Work Phone: [facility] 250 DO Work Phone: 01-20-2022 09:25-0400 Diastolic blood pressure 52 mm[Hg] Hayden P House Work Phone: [facility] 250 DO Work Phone: 01-20-2022 09:25-0400 Heart rate 66 /min Hayden P House Work Phone: [facility] 250 DO Work Phone: 01-20-2022 09:25-0400 Systolic blood pressure 126 mm[Hg] Hayden P House Work Phone: [facility] 250 DO Work Phone: 01-18-2022 10:39-0400 Body height 157.48 cm DO Donny Laffay Work Phone: [facility] 01-18-2022 10:39-0400 Body temperature 98.1 [degF] DO Donny Laffay Work Phone: [facility] 01-18-2022 10:39-0400 Body weight 56.7 kg DO Donny Laffay Work Phone: [facility] 01-18-2022 10:39-0400 Diastolic blood pressure 68 mm[Hg] DO Donny Laffay Work Phone: [facility] 01-18-2022 10:39-0400 Heart rate 71 /min DO Donny Jacobson Work Phone: [facility] 01-18-2022 10:39-0400 Respiratory rate 16 /min DO Donny Jacobson Work Phone: [facility] 01-18-2022 10:39-0400 SaO2% (BldA) [Mass fraction] 96 % DO Donny Jacobson Work Phone: [facility] 01-18-2022 10:39-0400 Systolic blood pressure 130 mm[Hg] DO Donny Jacobson Work Phone: [facility] Encounters Encounter Date Encounter Type Care Provider Facility Start: 10-11-2023 End: 10-12-2023 ambulatory [facility] Start: 10-11-2023 End: 10-12-2023 ambulatory [facility] Start: 10-03-2023 End: 10-04-2023 Evaluation and management of inpatient [facility] Start: 10-02-2023 End: 10-02-2023 ambulatory [facility] Phone Call Provider 1 [facility] - Pre Admit Start: 09-27-2023 Orders Only Suzanna Strong [employer]AT ENGINEER-MAINFRAME SYSTEMS ADMINISTRATOR Work Phone: [facility] Comment on above: Type 2 diabetes raúl itus without complication, without long- term current use of insulin ([facility]) (Primary Dx) Start: 09-24-2023 End: 09-24-2023 ambulatory BIANCA PICKENS Not Available Start: 09-19-2023 End: 09-19-2023 ambulatory BIANCA PICKENS Not Available Start: 09-18-2023 End: 09-18-2023 ambulatory SUZANNA STRONG [facility] Start: 09-18-2023 End: 09-18-2023 Office outpatient visit 25 minutes Suzanna Strong FIRE BOAT ENGINEER-MAINFRAME SYSTEMS ADMINISTRATOR Work Phone: [facility] Comment on above: Diarrhea, unspecifie d type (Primary Dx); Type 2 diabetes mellitus without complication, without long-term current use of insulin ([facility]); Mixed simple and mucopurulent chronic bronchitis ([facility]) Start: 09-17-2023 End: 09-17-2023 ambulatory JUAN CARO [facility] Start: 09-17-2023 End: 09-17-2023 Office outpatient new 30 minutes Juan Caro MD Work Phone: [facility] Comment on above: BURCH (dyspnea on exer tion) (Primary Dx); 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 ([facility]); Type 2 diabetes mellitus without complication, without long-term current use of insulin ([facility]); Other hyperlipidemia; Essential hypertension; Centrilobular emphysema ([facility]) Start: 09-14-2023 Telephone encounter Yael [facility] Start: 09-14-2023 End: 09-14-2023 ambulatory EDNA FERNANDA Not Available Start: 09-11-2023 End: 09-11-2023 ambulatory BIANCA PICKENS Not Available Start: 09-10-2023 End: 09-10-2023 ambulatory RAQUEL GALVAN Not Available Start: 09-03-2023 Chart abstracting Scanning Pro vider External [facility] Start: 08-27-2023 End: 08-27-[address] [facility] Start: 08-23-2023 End: 08-24-2023 ambulatory [facility] Start: 08-23-2023 End: 08-23-[address] [facility] Start: 08-23-2023 End: 08-23-2023 Office outpatient visit 25 minutes Suzanna Strong [employer] ENGINEER-MAINFRAME SYSTEMS ADMINISTRATOR [facility]: [facility] Comment on above: Type 2 diabetes raúl itus without complication, without long- term current use of insulin ([facility]) (Primary Dx); Mixed simple and mucopurulent chronic bronchitis (CMS-HCC); Functional diarrhea Start: 08-22-2023 End: 08-22-2023 ambulatory YADI GARCIA Not Available Start: 08-20-2023 End: 08-20-2023 ambulatory BIANCA PICKENS Not Available Start: 08-13-2023 Bamboo flowsheet Raquel troy [employer] Work Phone: [facility] Start: 08-13-2023 Bamboo flowsheet Raquel troy [employer] Work Phone: [facility] Start: 08-13-2023 End: 08-13-2023 ambulatory RAQUEL GALVAN Not Available Start: 08-13-2023 End: 08-13-2023 Office outpatient new 30 minutes Raquel Galvan [employer] Work Phone: [facility] Comment on above: Bilateral shoulder p ain, unspecified chronicity (Primary Dx); Myalgia Start: 08-09-2023 Telephone encounter Georges kendall MD Work Phone: [facility] Start: 08-08-2023 End: 08-08-[address] [facility] Start: 08-08-2023 End: 08-08-2023 Office outpatient visit 25 minutes Suzanna Dumont Tae FIRE BOAT ENGINEER-MAINFRAME SYSTEMS ADMINISTRATOR Work Phone: [facility] Comment on above: Mixed simple and muc opurulent chronic bronchitis ([facility]) (Primary Dx); Type 2 diabetes mellitus without complication, without long-term current use of insulin (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) (Primary Dx); Other hyperlipidemia Start: 07-24-2023 End: 07-25-2023 ambulatory [facility] Start: 07-24-2023 End: 07-24-2023 ambulatory SUZANNA STRONG [facility] Start: 07-24-2023 End: 07-24-2023 Initial preventive medicine new patient 67yrs&> Suzanna Strong FIRE BOAT ENGINEER-MAINFRAME SYSTEMS ADMINISTRATOR Work Phone: [facility] Comment on above: Chronic obstructive pulmonary disease, unspecified COPD type (CMS-HCC) (Primary Dx); Sciatica, left side; Tobacco abuse disorder; Hyperglycemia; Mixed hyperlipidemia; Fatigue, unspecified type; Thoracic myofascial strain, sequela; Encounter for screening mammogram for malignant neoplasm of breast; Personal history of nicotine dependence; Screen for colon cancer; Gastroesophageal reflux disease with esophagitis without hemorrhage; BMI 26.0-26.9,adult Start: 05-17-2023 End: 05-17-2023 ambulatory PHYSICIAN NO [facility] Facility:[facility] Start: 05-17-2023 End: 05-17-2023 ambulatory PHYSICIAN NO [facility] Work Phone: Start: 05-17-2023 End: 05-17-2023 Patient encounter procedure PHYSICIAN NO [facility] [place] Work Phone: Start: 02-08-2023 End: 02-08-2023 ambulatory Vickie Ayon Other [employer] Other Start: 02-08-2023 Office outpatient vi sit 15 minutes Vickie Ayon [facility] Start: 01-24-2023 (PROC) PROCEDURE Ino Maddie Castañedahailee [facility] Start: 01-24-2023 End: 01-24-[address] Maddie [employer] Other Start: 01-10-2023 End: 01-10-2023 ambulatory Ino Maddie Other [employer] Other Start: 01-10-2023 Office outpatient vi sit 25 minutes Ino Perkins [facility] Start: 01-03-2023 (PROC) PROCEDURE Ino Maddie [facility] Start: 01-03-2023 End: 01-03-2023 ambulatory Ino Perkins Facility:[facility] Start: 01-03-2023 End: 01-03-2023 Admission to same day surgery center DO Hayden House Work Phone: [facility] Work Phone: Start: 01-03-2023 End: 01-03-2023 ambulatory DO Hayden House Work Phone: [facility] Work Phone: Start: 12-18-2022 End: 12-18-2022 ambulatory Ino Perkins Other [employer] Other Start: 12-18-2022 Office outpatient vi sit 15 minutes Ino Perkins [facility] Start: 12-06-2022 (PROC) PROCEDURE Ino Perkins [facility] Start: 12-06-2022 End: 12-06-2022 ambulatory Ino Perkins Facility:[facility] Start: 12-06-2022 End: 12-06-2022 Admission to same day surgery center DO Hayden House Work Phone: [facility] Work Phone: Start: 12-06-2022 End: 12-06-2022 ambulatory DO Hayden House Work Phone: [facility] Work Phone: Start: 11-06-2022 End: 11-06-2022 ambulatory Ino Perkins Facility:[facility] Start: 11-06-2022 End: 11-06-2022 Patient encounter procedure DO Hayden House Work Phone: [facility] Main [place] Work Phone: Start: 10-23-2022 End: 10-23-2022 ambulatory Ino Perkins Other [employer] Other Start: 10-23-2022 Office outpatient vi sit 25 minutes Ino Perkins [facility] Start: 10-09-2022 End: 10-09-2022 ambulatory Ino Perkins Facility:[facility] Start: 10-09-2022 End: 10-09-2022 ambulatory DO Hayden House Work Phone: [facility] Work Phone: Start: 10-09-2022 End: 10-09-2022 Discharged Recurring DO Hayden House Work Phone: [facility] [place] Work Phone: Start: 09-21-2022 End: 09-21-2022 ambulatory Ino Perkins Other [employer] Other Start: 09-21-2022 Patient encounter procedure Ino Perkins [facility] Start: 08-07-2022 Chart Update Hayden P Hous e Work Phone: Located within [facility] [employer] 250 DO Work Phone: Start: 05-16-2022 End: 05-16-2022 ambulatory DO Hayden House Work Phone: [facility] Work Phone: Start: 05-16-2022 End: 05-16-2022 Patient encounter procedure DO Hayden House Work Phone: [facility] Start: 05-15-2022 End: 05-15-2022 ambulatory Ino Perkins Other [employer] Other Start: 05-15-2022 Office outpatient vi sit 25 minutes Ino Perkins [facility] Start: 04-11-2022 Office outpatient vi sit 15 minutes Hayden P House Work Phone: Located within [facility] [employer] 250 DO Work Phone: Start: 04-11-[address] Yakelin Crowe Facility: Start: 03-31-2022 End: 03-31-2022 Admission to same day surgery center DO Hayden Dodson Work Phone: [facility] Start: 03-31-2022 End: 03-31-2022 ambulatory DO Hayden Dodson Work Phone: [facility] Work Phone: Start: 03-29-2022 End: 03-29-2022 ambulatory DO Hayden Dodson Work Phone: [facility] Work Phone: Start: 03-29-2022 End: 03-29-2022 Patient encounter procedure DO Hayden Dodson Work Phone: [facility]-Pre-Surgical Testing Start: 03-17-2022 End: 03-17-2022 Patient encounter procedure DO Donny Jacobson Work Phone: [facility] Start: 03-03-2022 Chart Update Hayden Winston e Work Phone: Located within [facility] 250 DO Work Phone: Start: 02-27-2022 Chart Update Hayden Winston e Work Phone: Located within [facility] 600 DO Work Phone: Start: 02-24-[address] Yakelin Crowe Facility:[id number] Start: 02-24-2022 End: 02-24-2022 Patient encounter procedure DO Donny Jacobson Work Phone: [facility] Start: 01-25-2022 End: 01-25-2022 Departed Referred DO Donny Jacobson Work Phone: [facility] Start: 01-20-2022 Office consultation new/estab patient 60 min Hayden Lew House Work Phone: Located within [facility] 250 DO Work Phone: Start: 01-20-[address] Yakelin Crowe Facility: Start: 01-18-2022 End: 01-18-2022 Patient encounter procedure DO Donny Jacobson Work Phone: [facility]Pre[facility]Surgical Testing Start: 12-16-2021 End: 12-17-[address] HAYDEN DODSON Facility:[facility] Start: 12-09-2021 End: 12-10-[address] HAYDEN DODSON Facility:[facility] Start: 11-30-2021 End: 12-01-[address] HAYDEN DODSON Facility:[facility] Patient encounter status Hayden Vipin Dodson Work Phone: -[facility] 250 DO Work Phone: Procedures Date Procedure Procedure Detail Performing Clinician Start: 09-18-2023 Adult depression scr eening assessment Suzanna Strong FIRE BOAT ENGINEER-MAINFRAME SYSTEMS ADMINISTRATOR Work Phone: Start: 09-17-2023 Ecg routine ecg w/le ast 12 lds w/i&r Juan Caro MD Work Phone: Start: 08-27-2023 Adult depression scr eening assessment Scanning External Start: 08-23-2023 Adult depression scr eening assessment Suzanna Strong FIRE BOAT ENGINEER-MAINFRAME SYSTEMS ADMINISTRATOR Work Phone: Start: 08-23-2023 Microalbumin [Mass/v olume] in Urine by Test strip Suzanna Strong FIRE BOAT ENGINEER-MAINFRAME SYSTEMS ADMINISTRATOR Work Phone: Start: 08-08-2023 Adult depression scr eening assessment Suzanna Strong FIRE BOAT ENGINEER-MAINFRAME SYSTEMS ADMINISTRATOR Work Phone: Start: 07-24-2023 Adult depression scr eening assessment Suzanna Strong FIRE BOAT ENGINEER-MAINFRAME SYSTEMS ADMINISTRATOR Work Phone: Start: 01-03-2023 Local anesthetic lum bar facet joint nerve block DO Hayden Dodson Work Phone: Start: 12-06-2022 Local anesthetic lum bar facet joint nerve block DO Hayden Endocyte Work Phone: Start: 11-06-2022 MR thoracic spine wo con DO Hayden Endocyte Work Phone: Start: 05-16-2022 Radiography of thora cic spine DO Hayden Dodson Work Phone: Start: 03-31-2022 Laparoscopic cholecystectomy DO Hayden Dodson Work Phone: Start: 02-24-2022 Radionuclide myocard ial perfusion stress study DO Donny Jacobson Work Phone: Cholecystectomy Hayden Farfan use Work Phone: Ligation of fallopian tube C harles Vipin House Work Phone: Procedure on back Hayden Dodson Work Phone: NEGATED: Highlighted row has not occurred! Total colonoscopy Hayden Dodson Work Phone: Plan of Treatment Date Care Activity Detail Author Start: 01-21-2025 Tobacco Counseling Tobacco Counseling [facility] Start: 10-02-2024 Adult BMI Screening Adult BMI Screening [facility] Start: 10-02-2024 Tobacco Screening Tobacco Screening [facility] Start: 09-22-2024 Tobacco Screening Tobacco Screening [facility] Start: 09-17-2024 Adult BMI Screening Adult BMI Screening [facility] Start: 09-17-2024 Depression Screening Depression Screening [facility] Start: 09-17-2024 Fall Risk Screening Fall Risk Screening [facility] Start: 09-17-2024 Tobacco Screening Tobacco Screening [facility] Start: 09-16-2024 Adult BMI Screening Adult BMI Screening [facility] Start: 09-16-2024 Tobacco Screening Tobacco Screening [facility] Start: 08-27-2024 Adult BMI Screening Adult BMI Screening [facility] Start: 08-27-2024 Depression Screening Depression Screening [facility] Start: 08-27-2024 Fall Risk Screening Fall Risk Screening [facility] Start: 08-27-2024 Tobacco Screening Tobacco Screening [facility] Start: 08-23-2024 Adult BMI Screening Adult BMI Screening [facility] Start: 08-23-2024 Depression Screening Depression Screening [facility] Start: 08-23-2024 Diabetic foot examination Diabetic Foot Exam [facility] Start: 08-23-2024 Fall Risk Screening Fall Risk Screening [facility] Start: 08-23-2024 Tobacco Screening Tobacco Screening [facility] Start: 08-23-2024 Urine screening for protein Urine Microalbumin [facility] Start: 08-08-2024 Adult BMI Screening Adult BMI Screening [facility] Start: 08-08-2024 Depression Screening Depression Screening [facility] Start: 08-08-2024 Fall Risk Screening Fall Risk Screening [facility] Start: 08-08-2024 Tobacco Screening Tobacco Screening [facility] Start: 07-24-2024 Adult BMI Follow Up Plan Adult BMI Follow Up Plan [facility] Start: 07-24-2024 Adult BMI Screening Adult BMI Screening [facility] Start: 07-24-2024 Depression Screening Depression Screening [facility] Start: 07-24-2024 Fall Risk Screening Fall Risk Screening [facility] Start: 07-24-2024 Tobacco Screening Tobacco Screening [facility] Start: 03-31-2024 End: 03-31-2024 Patient encounter procedure 03/31/2024 11:15 AM EDT Office Visit [facility] [address] [place] [address] Deloris Mejia MD [address] [place] [address] [facility] Start: 03-02-2024 Influenza vaccination Influenza Vaccine [facility] Start: 10-11-2023 End: 10-11-2023 Patient encounter procedure 10/11/2023 11:45 AM EDT Appointment [facility] - Stress Imaging [address] [place] [address] Juan Caro MD [address] [place] [address] [facility] - Stress Imaging Start: 10-11-2023 End: 10-11-2023 Patient encounter procedure [facility] Start: 10-11-2023 End: 10-11-2023 Patient encounter procedure [facility] - Cardiovascular Start: 10-03-2023 End: 10-03-2023 Admission to same day surgery center 10/03/2023 9:00 AM EDT - 10/03/2023 10:00 AM EDT Surgery [facility] - Endoscopy [address] [place] [address] Vanesa Tomas, DO [address] [place] [address] COLONOSCOPY DIAGNOSTIC / SCREENING [71661 (CPT )] [facility] Endoscopy Comment on above: COLONOSCOPY DIAGNOSTIC / SCREENING [4537 8 (CPT )] Start: 10-03-2023 End: 10-03-2023 Colonoscopy flx dx w/collj spec when pfrmd COLONOSCOPY DIAGNOSTIC / SCREENING chronic diarrhea 10/03/2023 9:00 AM EDT [facility] Start: 10-03-2023 Subsequent hospital visit by physician [facility] - Endoscopy Comment on above: Chronic diarrhea (Primary Dx) Start: 10-02-2023 End: 10-02-2023 ambulatory 10/02/2023 3:00 PM EDT Support Visit [facility] - Pre Admit [address] [place] [address] [facility] - Pre Admit Start: 09-18-2023 End: 09-18-2023 Patient encounter procedure 09/18/2023 1:00 PM EDT Office Visit [facility] - Family Medicine [address] [place] [address] Suzanna tSrong, FIRE BOAT ENGINEER-MAINFRAME SYSTEMS ADMINISTRATOR [address] [place] [address] [facility] - Family Medicine Start: 09-17-2023 End: 09-16-2024 Echo complete W/O contrast Echo complete W/O contrast Echocardiography Routine 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 ([facility]) Other hyperlipidemia BURCH (dyspnea on exertion) Expected: 09/17/2023, Expires: 09/16/2024 [employer] Comment on above: Expected: 09/17/2023, Expires: Start: 09-17-2023 End: 09-16-2024 NM Heart Perfusion W stress and W radionuclide IV Nuc stress [facility] Routine 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 ([facility]) BURCH (dyspnea on exertion) Expected: 09/17/2023, Expires: 09/16/2024 [employer] Work Phone: Comment on above: Expected: 09/17/2023, Expires: Start: 09-17-2023 End: 09-17-2023 Patient encounter procedure 09/17/2023 11:15 AM EDT Office Visit [facility] [address] [place] [address] Juan Caro MD [address] [place] [address] [facility] Start: 08-20-2023 End: 08-20-2023 ambulatory 08/20/2023 11:00 AM EST Evaluation [facility] [address] [place] [id number] Bianca Pickens, PT [address] [place] [address] [facility] Start: 07-24-2023 End: 07-24-2024 CT Chest for screening WO contrast CT low dose lung screening (Annual) Imaging Routine Personal history of nicotine dependence Expected: 07/24/2023, Expires: 07/24/2024 [employer] Comment on above: Expected: 07/24/2023, Expires: Start: 07-24-2023 End: 07-24-2024 DBT Breast - bilateral screening Mammography screening bilateral with CAD Imaging Routine Encounter for screening mammogram for malignant neoplasm of breast Expected: 07/24/2023, Expires: 07/24/2024 [facility] Work Phone: Comment on above: Expected: 07/24/2023, Expires: Start: 05-17-2023 XR pre/post mri xray XR pre/post mri xray [facility] Start: 05-17-2023 [facility] Start: 05-17-2023 MR Unspecified body region [facility] Start: 05-17-2023 MRI of head MR head/brain wo/w con [facility] Start: 05-17-2023 MRI of lumbar spine with contrast MR lumbar spine wo/w con [facility] Start: 03-02-2023 Influenza vaccination Influenza Vaccine [facility] Start: 01-03-2023 [facility] Start: 12-06-2022 [facility] Start: 04-11-2022 FUV, Provider: Yakelin Crowe, Status: Pen, Time: 3:30 PM FUV, Provider: Yakelin Crowe, Status: Pen, Time: 3:30 PM [facility] 250 DO Work Phone: Start: 03-31-2022 [facility] Start: 03-31-2022 [facility] Start: 01-25-2022 Laparoscopic cholecystectomy OR Cholecystectomy Laparoscopic (Not Applicable) [facility] Start: 2007 Administration of varicella zoster vaccine Zoster (Shingles) Vaccine (1 of 2) [facility] Start: 2002 Screening for malignant neoplasm of colon Colon Cancer Screening 3 Year Cologuard [facility] Start: 1976 DTaP,Tdap and Td Vaccines (1 - Tdap) DTaP,Tdap and Td Vaccines (1 - Tdap) [facility] Start: 1975 Diabetic foot examination Diabetic Foot Exam [facility] Start: 1957 Glaucoma screening Diabetic Ophthalmology Exam [facility] Start: 1957 Medicare Annual Wellness Visit Medicare Annual Wellness Visit [facility] Start: 1957 Urine screening for protein [facility] Colog[facility] d [facility] Lab Routine Screen for colon cancer Ordered: 07/24/2023 [facility] Comment on above: Ordered: 07/24/2023 End: 09-17-2024 Colonoscopy Colonoscopy GI Routine Diarrhea, unspecified type 1 Occurrences starting 09/18/2023 until 09/17/2024 [employer] Work Phone: Comment on above: 1 Occurrences starting 09/18/2023 until 09/17/2024 Patient Education Maddie Diagnostic Block F [facility] Work Phone: Patient referral [facility] Work Phone: Payers Date Payer Category Payer Medicare [id number] 2022 Medicare [id number] 2. [id number] 2022 Self-pay [id number] 1959 Self-pay [id number] 1957 Unknown [id number] 2.16.84 0.1.871413.3.579.2.593 1957 Unknown [id number] 2.16.84 0.1.012984.3.579.2.593 1957 Unknown [id number] 2.16.84 0.1.822727.3.579.2.593 1957 Unknown [id number] 2.16. 840.1.703938.3.579.2.356 1957 Unknown [id number] 2.16. 840.1.831825.3.579.2.356 1957 Unknown [id number] 2.16. 840.1.518197.3.579.2.356 1957 Unknown [id number] 2.16.8 40.1.851544.3.579.2.1285 1957 Unknown [id number] 2.16.8 40.1.455469.3.579.2.1285 1957 Unknown [id number] 2.16.8 40.1.174923.3.579.2.1285 1957 Unknown [id number] 2.16.8 40.1.134487.3.579.2.1285 1957 Unknown [id number] 2.16.8 40.1.466858.3.579.2.1285 1957 Unknown [id number] 2.16.8 40.1.149845.3.579.2.1285 1957 Unknown [id number] 2.16.8 40.1.879134.3.579.2.1285 1957 Unknown [id number] 2.16.84 0.1.972831.3.579.2.1258 1957 Unknown [id number] 2.16.84 0.1.984486.3.579.2.1258 1957 Unknown [id number] 2.16.84 0.1.622551.3.579.2.1258 1957 Unknown [id number] 2.16.84 0.1.438635.3.579.2.1258 1957 Unknown [id number] 2.16.84 0.1.977472.3.579.2.1258 1957 Unknown [id number] 2.16.84 0.1.584125.3.579.2.1258 1957 Unknown [id number] 2.16.84 0.1.693034.3.579.2.1258 1957 Unknown [id number] 2.16.84 0.1.243865.3.579.2.1258 1957 Unknown [id number] 2.16.8 40.1.628239.3.579.2.1285 1957 Unknown [id number] 2.16.8 40.1.922123.3.579.2.1285 1957 Unknown [id number] 2.16.8 40.1.647918.3.579.2.1285 1957 Unknown [id number] 2.16.8 40.1.982137.3.579.2.1285 1957 Unknown [id number] 2.16.8 40.1.102148.3.579.2.1285 1957 Unknown [id number] 2.16.8 40.1.485010.3.579.2.1285 1957 Unknown [id number] 2.16.8 40.1.865414.3.579.2.1285 1957 Unknown [id number] 2.16.8 40.1.375996.3.579.2.1285 1957 Unknown [id number] 2.16.8 40.1.015426.3.579.2.1286 Medicare [id number] 0ad [id number] Unknown Unknown [id number] 2.16.8 40.1.250178.3.579.2.531 Unknown [id number] 2.16.8 40.1.612788.3.579.2.531 Unknown [id number] 2.16.8 40.1.556500.3.579.2.531 Unknown [id number] 2.16.8 40.1.736105.3.579.2.531 Unknown [id number] 2.16.8 40.1.585774.3.579.2.531 Unknown [id number] 2.16.8 40.1.033824.3.579.2.531 Social History Date Type Detail Facility Start: 01-18-2022 End: 01-24-2023 Tobacco smoking status AKIS Smoker (finding) [facility] Start: 1955 Sex Assigned At Female F [facility] Start: 08-12-2020 End: 07-24-2023 Daily caffeine consumption Daily caffeine consumption -[facility] Chang DO Work Phone: Comment on above: 2 pepsi's daily.; 2 packs daily; Start: 08-12-2020 End: 07-24-[address] [facility] [employer] Other Start: 07-24-2023 End: 09-17-2023 Tobacco smoking status NHIS Smokes tobacco daily [employer] History of tobacco use Cigarette Smoker P [employer] Start: 07-24-2023 End: 09-17-2023 Tobacco use and exposure Smokeless tobacco [facility]user [facility] Start: 07-24-2023 End: 10-02-2023 Alcohol intake Ex-drinker (finding) Georgina Goodman stem Adolescent depressio n screening assessment 0 [facility] Start: 1955 Sex Assigned At Not on file P [employer] Start: 08-12-2023 Tobacco Comment 21-30 cigarettes/day [facility] Start: 08-12-2023 Alcohol Comment caffeine: soda/pop [facility] Goals Date Patient Goal Desired Activity /State Clinical Notes 03-29-2022 to 10-02-2023 Perioperative Nursing Note - Miriam Kramer RN - 10/02/2023 11:26 AM EDTPerioperative Nursing Note - Miriam Kramer RN - 10/02/2023 11:26 AM EDARUN Santos - 09/18/2023 1:00 PM EDT Note Date & Type Note Facility 10-02-2023 Nurse Note Preoperative Education Checklist- General Surgery date: 10/03/23 Surgery time: 9a Arrival time: 8a 1. Bring a photo ID and your insurance card with you the day of surgery. You will check in at the main lobby of the [facility]- registration desk is straight ahead as soon as you walk in. Tell them you are here for surgery. 2. If you have a Living Will/Durable Power of [employer] Consultant for Health Care that is not on file here, please bring a copy the day of surgery. 3. Please shower/bathe the night before surgery with the provided soap or wipes. Do not shower the morning of surgery- you will do use wipes when you arrive here at the hospital before getting into your surgical gown. Do not shave the area of your procedure for 2 days prior to your surgery. 4. NO powder, lotion, perfume/cologne, aftershave, make-up, deodorant, or hair products after you have bathed. 5. NO nail brazilian/acrylic on at least one finger. If you are having a hand, wrist or foot surgery then all nail brazilian and artificial/acrylic nails must be removed from that hand or foot. 6. Avoid ALL Aspirin and non-steroidal anti-inflammatory drugs and certain vitamins (Ibuprofen, Advil, Aleve, Excedrin, Meloxicam, Celebrex, fish/krill oil, etc.) for 7 days prior to surgery as instructed by your surgeon and/or your prescribing doctor. Tylenol IS ALLOWED. If you are on Ticlid, Xarelto, Eliquis, Pradaxa, Plavix or Coumadin, please check with your prescribing doctor for instructions for when to stop them. 7. If you use an inhaler, continue to use it routinely. 8. Nothing to eat or drink (not even water, gum, mints, or hard candy!) AFTER midnight prior to your surgery. 9. Take only medications that you are instructed to on the morning of surgery with a TINY SIP OF WATER. 10. Choose a responsible adult that will be able to drive you home when you are discharged from your hospital stay for your surgery and can stay with you in your home for 24 hours after your procedure. You must NOT drive any vehicle or operate any machinery for 24 hours after surgery. 11. When you dress for your appointment, please wear loose fitting clothing that is appropriate to accommodate your surgical area procedure. BRING WITH YOU ANY DEVICES YOU MAY NEED: NAYLA hose, ice machine, sling/swath, brace or special shoe, oversized zip-up or button up shirt, CPAP machine if staying overnight. 12. Do NOT wear jewelry, watches, or any piercings or metal for surgery- leave these valuables and money at home. 13. Do NOT wear contact lenses for surgery- glasses are okay if needed. 14. The anesthesiologist will talk with you the day of surgery and will ask you to sign a Consent Form. 15. Refrain from smoking or any type of tobacco use for at least 8 hours and marijuana for 24 hours prior to arrival for your surgery. 16. If a GREEN BLOOD band is given to you, please bring it with you for the day of surgery. 17. Notify your surgeon if you develop any illness before your surgery. 18. If you are staying overnight, please DO NOT BRING your home medications with you. 19. If you have any questions prior to surgery, please call the Preadmission Testing office at [phone], Mon.-Fri. 7 a.m.-3 p.m. Leave a voicemail if needed. Pre-Surgery Instructions: Medication Instructions albuterol (PROVENTIL HFA;VENTOLIN HFA) 90 mcg/actuation inhaler Take morning of procedure if needed aspirin 81 mg Check with prescribing doctor for instructions diphenoxylate-atropine (LomotiL) 2.5-0.025 mg per tablet Stop taking 0 days prior to procedure dulaglutide (TRULICITY) 3 mg/0.5 mL pen injector Stop taking 0 days prior to procedure DULoxetine (CYMBALTA) 30 mg capsule Stop taking 0 days prior to procedure famotidine (PEPCID) 20 mg tablet Check with prescribing doctor for instructions wzwxgbirwnv-ytvbtyhfk-yyolskjj (TRELEGY ELLIPTA) 100-62.5-25 mcg blister with device Take morning of procedure gabapentin (NEURONTIN) 600 mg tablet Stop taking 0 days prior to procedure pyrilamine-dextromethorphan 7.5-7.5 mg/5 mL liquid Stop taking 0 days prior to procedure rosuvastatin (CRESTOR) 20 mg tablet Stop taking 0 days prior to procedure [facility] [employer] 10-02-2023 Miscellaneous Notes Preoperative Education Checklist- General Surgery date: 10/03/23 Surgery time: 9a Arrival time: 8a 1. Bring a photo ID and your insurance card with you the day of surgery. You will check in at the main lobby of the [facility]- registration desk is straight ahead as soon as you walk in. Tell them you are here for surgery. 2. If you have a Living Will/Durable Power of [employer] Consult[employer] for Health Care that is not on file here, please bring a copy the day of surgery. 3. Please shower/bathe the night before surgery with the provided soap or wipes. Do not shower the morning of surgery- you will do use wipes when you arrive here at the hospital before getting into your surgical gown. Do not shave the area of your procedure for 2 days prior to your surgery. 4. NO powder, lotion, perfume/cologne, aftershave, make-up, deodorant, or hair products after you have bathed. 5. NO nail brazilian/acrylic on at least one finger. If you are having a hand, wrist or foot surgery then all nail brazilian and artificial/acrylic nails must be removed from that hand or foot. 6. Avoid ALL Aspirin and non-steroidal anti-inflammatory drugs and certain vitamins (Ibuprofen, Advil, Aleve, Excedrin, Meloxicam, Celebrex, fish/krill oil, etc.) for 7 days prior to surgery as instructed by your surgeon and/or your prescribing doctor. Tylenol IS ALLOWED. If you are on Ticlid, Xarelto, Eliquis, Pradaxa, Plavix or Coumadin, please check with your prescribing doctor for instructions for when to stop them. 7. If you use an inhaler, continue to use it routinely. 8. Nothing to eat or drink (not even water, gum, mints, or hard candy!) AFTER midnight prior to your surgery. 9. Take only medications that you are instructed to on the morning of surgery with a TINY SIP OF WATER. 10. Choose a responsible adult that will be able to drive you home when you are discharged from your hospital stay for your surgery and can stay with you in your home for 24 hours after your procedure. You must NOT drive any vehicle or operate any machinery for 24 hours after surgery. 11. When you dress for your appointment, please wear loose fitting clothing that is appropriate to accommodate your surgical area procedure. BRING WITH YOU ANY DEVICES YOU MAY NEED: NAYLA hose, ice machine, sling/swath, brace or special shoe, oversized zip-up or button up shirt, CPAP machine if staying overnight. 12. Do NOT wear jewelry, watches, or any piercings or metal for surgery- leave these valuables and money at home. 13. Do NOT wear contact lenses for surgery- glasses are okay if needed. 14. The anesthesiologist will talk with you the day of surgery and will ask you to sign a Consent Form. 15. Refrain from smoking or any type of tobacco use for at least 8 hours and marijuana for 24 hours prior to arrival for your surgery. 16. If a GREEN BLOOD band is given to you, please bring it with you for the day of surgery. 17. Notify your surgeon if you develop any illness before your surgery. 18. If you are staying overnight, please DO NOT BRING your home medications with you. 19. If you have any questions prior to surgery, please call the Preadmission Testing office at [phone], Mon.-Fri. 7 a.m.-3 p.m. Leave a voicemail if needed. Pre-Surgery Instructions: Medication Instructions albuterol (PROVENTIL HFA;VENTOLIN HFA) 90 mcg/actuation inhaler Take morning of procedure if needed aspirin 81 mg Check with prescribing doctor for instructions diphenoxylate-atropine (LomotiL) 2.5-0.025 mg per tablet Stop taking 0 days prior to procedure dulaglutide (TRULICITY) 3 mg/0.5 mL pen injector Stop taking 0 days prior to procedure DULoxetine (CYMBALTA) 30 mg capsule Stop taking 0 days prior to procedure famotidine (PEPCID) 20 mg tablet Check with prescribing doctor for instructions vyxvctypyps-nxryspsiy-sxytlids (TRELEGY ELLIPTA) 100-62.5-25 mcg blister with device Take morning of procedure gabapentin (NEURONTIN) 600 mg tablet Stop taking 0 days prior to procedure pyrilamine-dextromethorphan 7.5-7.5 mg/5 mL liquid Stop taking 0 days prior to procedure rosuvastatin (CRESTOR) 20 mg tablet Stop taking 0 days prior to procedure documented in this encounter [employer] 09-18-2023 History of Presen t illness Narrative Subjective Patient ID: Keely Avalos is a 68 y.o. female. Despite stopping the glucophage she has had no reprieve in the diarrhea She has had no reprieve in the urgency and at times the incontinence She has at times had pain but mostly a lot of urgency and gas The lomotil has not seemed to have helped She has not noticed any particular food makes a difference but it is definitely worse after eating She has tolerated the initial dose of trulicity She just took her last dose for the initial 4 weeks Her breathing has definitely improved with the new medication Her blood sugars in the am are in the 170s The following portions of the patient's history were reviewed and updated as appropriate: allergies, current medications, past family history, past medical history, past social history, past surgical history, problem list, and medication reconciliation was completed including current medication and post discharge medication. Review of Systems Constitutional: Negative. HENT: Negative. Eyes: Negative. Respiratory: Negative. Cardiovascular: Negative. Gastrointestinal: Positive for diarrhea. Endocrine: Negative. Genitourinary: Negative. Allergic/Immunologic: Negative. Neurological: Negative. Hematological: Negative. Psychiatric/Behavioral: Negative. Objective Physical Exam Vitals and nursing note reviewed. Eyes: Conjunctiva/sclera: Conjunctivae normal. Neck: Vascular: No carotid bruit. Cardiovascular: Rate and Rhythm: Normal rate and regular rhythm. Heart sounds: Normal heart sounds. No murmur heard. Pulmonary: Effort: Pulmonary effort is normal. Breath sounds: Normal breath sounds. Musculoskeletal: Cervical back: Neck supple. Right lower leg: No edema. Left lower leg: No edema. Lymphadenopathy: Cervical: No cervical adenopathy. Skin: General: Skin is warm and dry. Capillary Refill: Capillary refill takes less than 2 seconds. Neurological: Mental Status: She is alert and oriented to person, place, and time. Psychiatric: Thought Content: Thought content normal. Judgment: Judgment normal. Assessment/Plan Keely was seen today for diarrhea. Diagnoses and all orders for this visit: Diarrhea, unspecified type - Colonoscopy; Future Type 2 diabetes mellitus without complication, without long-term current use of insulin ([facility]) Mixed simple and mucopurulent chronic bronchitis ([facility]) Other orders - dulaglutide (TRULICITY) 1.5 mg/0.5 mL pen injector; Inject 1.5 mg under the skin once a week. Diarrhea persists, it did not stop with cessation of the glucophage and it is not responsive to lomotil, as she has had this for several years but now is worsening and she has had no screening for colon cancer next step is colonoscopy and she is agreeable to this She is also tolerating trulicity, will increase from the .75 mg dose to the 1.5 mg dose and hopefully improve her am blood sugar, remain off of glucophage Her copd symptoms have now stabilized on medication - continue Her blood pressure is good ARUN Curiel 09/18/23 1426 documented in this encounter [employer] 09-17-2023 History of Presen t illness Narrative Keely Avalos Date of visit: 09/17/2023 Date of : 1955 Age: 68 y.o. Patient Active Problem List Diagnosis Sciatica COPD (chronic obstructive pulmonary disease) ([facility]) Type 2 diabetes mellitus without complication, without long-term current use of insulin ([facility]) Other hyperlipidemia Cholecystitis Allergies Allergen Reactions Glucophage [Metformin] Diarrhea Current Outpatient Medications Medication Sig Dispense Refill albuterol (PROVENTIL HFA;VENTOLIN HFA) 90 mcg/actuation inhaler Inhale 2 puffs every 6 (six) hours as needed for wheezing or shortness of breath. 18 g 1 aspirin 81 mg Take 1 tablet (81 mg total) by mouth in the morning. diphenoxylate-atropine (LomotiL) 2.5-0.025 mg per tablet Take 1 tablet by mouth 2 (two) times a day as needed for diarrhea. 60 tablet 0 dulaglutide (TRULICITY) 0.75 mg/0.5 mL pen injector Inject 0.5 mL (0.75 mg total) under the skin once a week. 2 mL 0 DULoxetine (CYMBALTA) 30 mg capsule Take 1 capsule (30 mg total) by mouth in the morning. famotidine (PEPCID) 20 mg tablet Take 1 tablet (20 mg total) by mouth in the morning and 1 tablet (20 mg total) before bedtime. 60 tablet 1 olylwsqylui-tvkaejfov-necuvqvg (TRELEGY ELLIPTA) 100-62.5-25 mcg blister with device Inhale 1 puff once daily. 60 each 2 gabapentin (NEURONTIN) 600 mg tablet Take 1 tablet (600 mg total) by mouth in the morning and 1 tablet (600 mg total) before bedtime. pyrilamine-dextromethorphan 7.5-7.5 mg/5 mL liquid Take 5 mL by mouth 4 (four) times a day as needed (cough and congestion). 200 mL 1 rosuvastatin (CRESTOR) 5 mg tablet Take 1 tablet (5 mg total) by mouth nightly. 90 tablet 1 ipratropium-albuteroL (COMBIVENT RESPIMAT) 20-100 mcg/actuation mist Inhale 1 puff in the morning and 1 puff at noon and 1 puff in the evening and 1 puff before bedtime. (Patient not taking: Reported on 09/17/2023) 4 g 5 tiZANidine (ZANAFLEX) 4 mg tablet Take 1 tablet (4 mg total) by mouth nightly. (Patient not taking: Reported on 09/17/2023) 30 tablet 0 No current facility-administered medications for this visit. Chief Complaint Patient presents with New Patient [employer] L/S N [facility] SCHED W/ PT STRESS DONE THERE History of Present Illness 68-year-old female with past medical history of type 2 diabetes mellitus, chronic tobacco abuse, COPD and hyperlipidemia. She is here for abnormal CT findings. She had a low-dose CT chest performed that showed extensive calcification in LAD and aorta, subclavian arteries, abdominal aorta, renal arteries and mesenteric vessels. She has chronic exertional shortness of breath. She reports no angina. She is trying to be active walks on a daily basis. She is noted severe fatigue. Denies dizziness or passing-out spells. She has been having GI symptoms in form of diarrhea and occasional abdominal pain and is being followed up through PCP. Most recent LDL cholesterol was 92 she is normotensive BMI is 26. No prior history of coronary artery disease stress test in 2021 was unremarkable. 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 Past Medical History: Diagnosis Date Sciatica 07/24/2023 No data recorded No data recorded No data recorded Past Surgical History: Procedure Laterality Date CHOLECYSTECTOMY LUMBAR FUSION TUBAL LIGATION Family History Problem Relation Age of Onset Kidney disease Mother Hypertension Mother No Known Problems Father Social History Socioeconomic History Marital status: Spouse name: Not on file Number of children: Not on file Years of education: Not on file Highest education level: Not on file Occupational History Not on file Tobacco Use Smoking status: Every Day Packs/day: 1.50 Years: 50.00 Additional pack years: 0.00 Total pack years: 75.00 Types: Cigarettes Smokeless tobacco: Never Vaping Use Vaping Use: Never used Substance and Sexual Activity Alcohol use: Not Currently Drug use: Never Sexual activity: Yes Partners: Male control/protection: None Other Topics Concern Caffeine Use Yes Social History Narrative Not on file Social Determinants of Health Financial Resource Strain: Not on file Food Insecurity: No Food Insecurity (09/17/2023) Hunger Screening Food Insecurity - Worry: Never True Food Insecurity - Inability: Never True Transportation Needs: Not on file Physical Activity: Not on file Stress: Not on file Social Connections: Not on file Interpersonal Safety: Not on file Housing Instability: Not on file Review of Systems Review of Systems Constitutional: Positive for malaise/fatigue. HENT: Negative. Eyes: Negative. Cardiovascular: Negative. Respiratory: Positive for cough, shortness of breath and wheezing. Endocrine: Negative. Hematologic/Lymphatic: Negative. Skin: Negative. Musculoskeletal: Positive for back pain. Gastrointestinal: Positive for diarrhea. Genitourinary: Negative. Neurological: Positive for loss of balance. Psychiatric/Behavioral: Negative. Allergic/Immunologic: Positive for environmental allergies. Vascular: Negative. CARDIOVASCULAR: Please review HPI. Physical Examination General appearance: Alert, oriented and cooperative. In no acute distress. Skin: Warm and dry to touch. Head: Normocephalic, without obvious abnormality, atraumatic. Ears, Nose, Mouth, Throat: Throat clear without erythema or exudate. Dentition intact. Eyes: Conjunctivae unremarkable, EOM intact. Neck: No JVD, No carotid bruit. Neck supple, trachea midline. Respiratory: Clear to auscultation bilaterally, no use of accessory muscles. Cardiovascular: RRR with normal S1 and S2 with no murmurs. Gastrointestinal: Soft, non-tender. Bowel sounds normal. Musculoskeletal: No peripheral edema. Neurologic: Oriented to time, person and place, affect appropriate. No focal/major motor defects noted. Psychiatric: Appropriate mood, memory and judgement. VITAL SIGNS: BP 130/62 (BP Site: Left Arm, BP Postition: Sitting) Pulse 68 Ht 157.5 cm (5' 2 ) Wt 65.7 kg (144 lb 12.8 oz) SpO2 98% BMI 26.48 kg/m No orders of the defined types were placed in this encounter. There are no discontinued medications. IMPRESSIONS/PLAN Coronary artery disease -severe calcification noted in coronary arteries especially LAD, subclavian arteries, aorta, abdominal aorta and its branches. She has mainly shortness of breath however has concomitant COPD reports no angina. EKG shows old anteroseptal infarct with nonspecific diffuse T-wave inversion. Will proceed with Talia stress testing discussed with patient she verbalized understanding of the plan and calcifications in the coronary arteries were explained to her in detail. Also check an echocardiogram for significant shortness of breath 2. Hyperlipidemia -I increased Crestor to 20 mg 3. COPD 4. Severe peripheral vascular disease 5. Mesenteric artery stenosis 6. Type 2 diabetes mellitus Will follow-up on stress test and echocardiogram. If unremarkable I will see her back in 6 months. TODAYS ORDERS No orders of the defined types were placed in this encounter. FOLLOW UP No follow-ups on file. PCP: ARUN CHAMORRO Referring Physician: ARUN Curiel [address] [place] [address] documented in this encounter [facility] 09-17-2023 Instructions Maria E Ribeiro [facility] - 09/17/2023 11:15 AM EDT Are You Ready To Kick The Habit? Free Tobacco Cessation Resources [facility] Services [facility] Centers provide all employees with free tobacco cessation services that include: Counseling to understand nicotine addiction Education about medications that can help you successfully quit Assistance with developing a plan to quit Call to set up an individual appointment or find out when group classes will be held: [facility]: [phone] [facility]: [phone] [facility]: [phone] [facility]: [phone] Quit Smoking Action Plan and Resources [facility] offers an eight-week, online smoking cessation plan to all [facility] employees, regardless of whether [employer] is your medical insurance provider. Go to [email or web address] ness and click the Health Risk Assessment and Resources link to get started. In the [employer] menu, click Action Plans instead of Health Risk Assessment to access the Quit Smoking Action Plan. Additional smoking cessation resources are also available to all [facility] employees on the [employer] web page at [email or web address].[email or web address]/quit smoking. [employer] Tobacco Cessation Program If [employer] is your medical insurance provider, there are more free resources available to you, including: No copays or deductibles on local tobacco cessation counseling services to help you quit Prescription assistance for tobacco cessation medications to help you quit For details about the tobacco cessation program available to [employer] members, go to www.[employer] (Search: Tobacco Cessation Program). [place] Tobacco Quit Line 5-982-KDWB-NOW ( ) is a toll-free, telephonic service that helps [place] residents quit smoking and using tobacco. It is staffed by experts who tailor a quit plan for you and provide you with advice. [place] Tobacco Quit Line 2-035-OPWQ-NOW ( ) is a toll-free, telephonic service that helps [place] residents quit smoking and using tobacco. It is staffed by experts who tailor a quit plan for you and provide you with advice. Two weeks of nicotine replacement therapy may be provided at no charge, if needed. Additional Resources These national organizations also offer free information and resources to help you quit tobacco: [place] [employer]--www.cancer.org/healthy/ stayawayfromtobacco [place] [employer]--www.heart.org (Search: Quit Smoking) Centers for Disease Control and Prevention--www.cdc.gov/tobacco [place] [employer]--www.lungusa.org documented in this encounter [facility] 09-14-2023 Miscellaneous Notes Called patient to remind them to bring their most current copy of their medication list with them to their appt. Patient verbalizes understanding. documented in this encounter [facility] 09-14-2023 Telephone encounter Note Called patient to remind them to bring their most current copy of their medication list with them to their appt. Patient verbalizes understanding. [facility] 02-22-2024 History of Presen t illness Narrative Subjective Patient ID: Keely Avalos is a 68 y.o. female. Here today for diarrhea with extreme urgency She has had diarrhea since her gallbladder was removed but since she started the metformin she can hardly get to the bathroom in time she has such urgency She generally goes 4-6 times per day, and it greatly suppresses her appetite She never started the trelegy due to concerns with side effects The following portions of the patient's history were reviewed and updated as appropriate: allergies, current medications, past family history, past medical history, past social history, past surgical history, problem list, and medication reconciliation was completed including current medication and post discharge medication. Review of Systems Constitutional: Negative. HENT: Negative. Eyes: Negative. Respiratory: Positive for cough. Cardiovascular: Negative. Gastrointestinal: Positive for diarrhea. Endocrine: Negative. Genitourinary: Negative. Allergic/Immunologic: Negative. Neurological: Negative. Hematological: Negative. Psychiatric/Behavioral: Negative. Objective Physical Exam Vitals and nursing note reviewed. Eyes: Conjunctiva/sclera: Conjunctivae normal. Neck: Vascular: No carotid bruit. Cardiovascular: Rate and Rhythm: Normal rate and regular rhythm. Heart sounds: Normal heart sounds. No murmur heard. Pulmonary: Effort: Pulmonary effort is normal. Breath sounds: Normal breath sounds. Abdominal: General: Abdomen is flat. Bowel sounds are normal. There is no distension. Palpations: Abdomen is soft. Tenderness: There is no abdominal tenderness. Musculoskeletal: Cervical back: Neck supple. Right lower leg: No edema. Left lower leg: No edema. Lymphadenopathy: Cervical: No cervical adenopathy. Skin: General: Skin is warm and dry. Capillary Refill: Capillary refill takes less than 2 seconds. Neurological: Mental Status: She is alert and oriented to person, place, and time. Psychiatric: Thought Content: Thought content normal. Judgment: Judgment normal. Diabetic foot exam: Visual exam was normal without lesions. Left: Pulses Dorsalis Pedis: present Vibratory sensation normal Filament test present Right: Pulses Dorsalis Pedis: present Vibratory sensation normal Filament test present Assessment/Plan Keely was seen today for diarrhea. Diagnoses and all orders for this visit: Type 2 diabetes mellitus without complication, without long-term current use of insulin ([facility]) - Microalbumin - Albumin: Creatinine Urine Ratio; Future Mixed simple and mucopurulent chronic bronchitis (CMS-HCC) - POCT microalbumin Functional diarrhea - diphenoxylate-atropine (LomotiL) 2.5-0.025 mg per tablet; Take 1 tablet by mouth 2 (two) times a day as needed for diarrhea. Other orders - dulaglutide (TRULICITY) 0.75 mg/0.5 mL pen injector; Inject 0.5 mL (0.75 mg total) under the skin once a week. Will stop the metformin due to intolerance and start trulicity, will begin with 0.75 mg for the first 4 weeks then increase to 1.5 mg If she has any difficulty understanding how to administer the injection return and I can demonstrate the first one in office once she fills it She may use lomotil only as needed for the loose stools but cautioned that trulicitiy can sometimes cause constipation so be cautious Also she had never started trelegy, reviewed the risks and benefits and she will get this started Will see her back in 3 months ARUN Curiel 08/23/23 1727 documented in this encounter [facility] 08-13-2023 History of Presen t illness Narrative Subjective Patient ID: Keely Avalos is a 68 y.o. female. Left medial border scapula pain Pain since ? She notes she has been seeing dr. Perkins for this pain on the left side medial scapula, she notes she has had an ablation and also series of injections, the one lasted 6 months but otherwise they have not lasted. She has had MRIs and is actively being treated by dr. Perkins for this issue. She notes walking and standing aggravates the pain. She went to therapy and this did not help either. Has used a tens unit that used to help but barely helps at this point. She has also tried liocaine patches without help. She takes a muscle relaxer without relief. She does heat/ice and this does help but the heat is better. She has tried epsom salt soaks too. Pain at rest 0/10 with activities 8-10/10. Not taking anything for the pain. She sleeps on the right side and at times it is hard for her to sleep Pt notes she is not having shoulder pain, she does not know why she was sent here Pain posterior LT shoulder, medial border of scapula, pain comes and goes. Pain worst in mornings. Denies N/T. Denies swelling. Denies cracking/popping. [place]: PCP 08/08/23, lidocaine patches, Dr. Perkins pain management, ablation, trigger point injections, tens unit, MRI t-spine/l-spine/c-spine 2019, muscle relaxers, heat, ice, tried multiple nsaids and tyl without relief, epsom salt soaks Objective Left Shoulder Exam Range of Motion Active abduction: 180 Muscle Strength Abduction: 4-/5 Tests Drop arm: negative Shoulder Musculoskeletal Exam Inspection Left Ecchymosis: none Peripheral edema: none Atrophy: none Masses comment: firmness distal medial scapula Palpation Left Tenderness: present Medial scapula: moderate Medial scapula comment: left sided Range of Motion Left Active ROM: no pain. Active forward elevation: 160. Shoulder active abduction: 180. Active external rotation at side: 70. Internal rotation: L1. Strength Left Abduction: 4-/5. Special Tests Left Rotator Cuff Signs Lift-off sign: negative Drop arm test: negative I reviewed the pcp note from 08/08/23, pt has pain between her shoulder blades, referred to ortho. Assessment/Plan Encounter Diagnoses: ICD-10-CM 1. Bilateral shoulder pain, unspecified chronicity M25.511 M25.512 2. Myalgia M79.10 Ambulatory referral to Physical Therapy Will try dry needling/iontophoresis with shine jones/Dewey in 4-6 weeks, discussed oral steroids and will hold off on this, she may continue with her regular regimen of pain control. documented in this encounter [facility] 08-09-2023 Miscellaneous Notes This is notification that we have received a referral for the patient. Please reach out to schedule new patient appointment in your office. Please check the referral tab in appt desk for details and to make sure to assign referral or schedule off of it. Thank you. documented in this encounter [facility] 08-09-2023 Telephone encounter Note This is notification that we have received a referral for the patient. Please reach out to schedule new patient appointment in your office. Please check the referral tab in appt desk for details and to make sure to assign referral or schedule off of it. Thank you. [facility] History of Presen t illness Narrative Subjective Patient ID: Keely Avalos is a 68 y.o. female. Here today to review the results of her recent CT of the chest done for lung cancer screening She is here with her She is having no new symptoms since her last apt She continues to have daily pain between her shoulder blades and continues to have frequent indigestion and heartburn We also reviewed her nuclear med stress test from 02/20 and EKG from 01/20 The following portions of the patient's history were reviewed and updated as appropriate: allergies, current medications, past family history, past medical history, past social history, past surgical history, problem list, and medication reconciliation was completed including current medication and post discharge medication. Review of Systems Constitutional: Negative. HENT: Negative. Eyes: Negative. Respiratory: Positive for cough and shortness of breath. Gastrointestinal: Positive for abdominal distention. Endocrine: Negative. Genitourinary: Negative. Musculoskeletal: Positive for arthralgias. Allergic/Immunologic: Negative. Neurological: Negative. Psychiatric/Behavioral: Negative. Objective Physical Exam Vitals and nursing note reviewed. Exam conducted with a surfboard designer present (). Pulmonary: Effort: Pulmonary effort is normal. Neurological: Mental Status: She is alert and oriented to person, place, and time. Psychiatric: Thought Content: Thought content normal. Assessment/Plan Keely was seen today for dicuss ct results. Diagnoses and all orders for this visit: Mixed simple and mucopurulent chronic bronchitis ([facility]) - eeohuzbcjam-azqdoeddo-esdpnmmn (TRELEGY ELLIPTA) 100-62.5-25 mcg blister with device; Inhale 1 puff once daily. - Ambulatory referral to Pulmonology ([facility]); Future Type 2 diabetes mellitus without complication, without long-term current use of insulin ([facility]) 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 ([facility]) - [facility] [place], [place]; Future Avascular necrosis ([facility]) - Ambulatory referral to Orthopedic Surgery ([facility]); Future Will continue her diabetes medication for now and see her back for that in less than 3 months Reviewed the heavy calcifications seen on the left coronary artery and the possible serious nature of this - we also reviewed her stress of 02/20 which was apparently normal, however she is having some indigestion and heartburn which could be anginal in nature and she has persistent pain between her shoulder blades - this also has multiple explanations However given her risks, smoking, diabetes and findings on ct it seems prudent to re-evaluate her heart disease risk and have her see a grinder carbon plant to determine the next best test to proceed with and she and her are in agreement She also has the findings of severe mucos plugging and other findings in the respiratory track suggesting very advance COPd, will have her see a pulmonogist, get a PFT and will change her combivent respimat to trelegy to optimize her medication management Her other finding was the avascular necrosis, this may be contributing to her pain between the shoulder blades as she doesn't complain of pain in her shoulders or arms She did have about 4 steroid injections several years ago over a period of time however nothing excessive - will have her f/u with ortho ARUN Curiel 08/08/23 1703 documented in this encounter [facility] 07-24-2023 History of Presen t illness Narrative Subjective Patient ID: Keely Avalos is a 68 y.o. female. She is here today to get established as her previous Dr retired She does have COPd and at one time used combivent but she did not have insurance for awhile so it has been awhile since she had an inhaler She has most recently been using primatene mist She is a 2 pack a day smoker and She has thought about quitting but is not yet ready to quit Has seen Dr Perkins in the past for her chronic back pain between her shoulder blades, she hasn't had much success with this She takes neurontin for her left sided sciatica -she sees [facility] for this, and is also prescribed cymbalta 30 mg daily for this She was diagnosed with diabetes at one time but has not had this rechecked since, and she is no longer taking medication for this She does tend to get frequent bronchitis 2-3 times per year Has been having frequent heartburn almost daily for the past few weeks and it travels all the way to her ears, relieved with tums The following portions of the patient's history were reviewed and updated as appropriate: allergies, current medications, past family history, past medical history, past social history, past surgical history, problem list, and medication reconciliation was completed including current medication and post discharge medication. Review of Systems Constitutional: Positive for fatigue. HENT: Negative. Eyes: Negative. Respiratory: Positive for cough. Cardiovascular: Negative. Gastrointestinal: Positive for diarrhea. Endocrine: Negative. Genitourinary: Negative. Musculoskeletal: Positive for arthralgias and back pain. Allergic/Immunologic: Negative. Neurological: Positive for weakness and light-headedness. Hematological: Negative. Psychiatric/Behavioral: Negative. Objective Physical Exam Vitals and nursing note reviewed. HENT: Head: Normocephalic. Eyes: Conjunctiva/sclera: Conjunctivae normal. Neck: Vascular: No carotid bruit. Cardiovascular: Rate and Rhythm: Normal rate and regular rhythm. Heart sounds: Normal heart sounds. No murmur heard. Pulmonary: Effort: Pulmonary effort is normal. Breath sounds: Rhonchi (few scattered posterior rhonchi) present. Musculoskeletal: General: Tenderness (medial left scalpular region) present. Cervical back: Neck supple. Right lower leg: No edema. Left lower leg: No edema. Lymphadenopathy: Cervical: No cervical adenopathy. Skin: General: Skin is warm and dry. Capillary Refill: Capillary refill takes less than 2 seconds. Neurological: Mental Status: She is alert and oriented to person, place, and time. Sensory: Sensation is intact. Motor: Weakness present. Coordination: Coordination normal. Aohbfz-Bkjy-Ryddki Test abnormal. Gait: Gait abnormal (slow gait shuffling). Psychiatric: Thought Content: Thought content normal. Judgment: Judgment normal. Assessment/Plan Keely was seen today for new patient. Diagnoses and all orders for this visit: Chronic obstructive pulmonary disease, unspecified COPD type ([facility]) - ipratropium-albuteroL (COMBIVENT RESPIMAT) 20-100 mcg/actuation mist; Inhale 1 puff in the morning and 1 puff at noon and 1 puff in the evening and 1 puff before bedtime. - albuterol (PROVENTIL HFA;VENTOLIN HFA) 90 mcg/actuation inhaler; Inhale 2 puffs every 6 (six) hours as needed for wheezing or shortness of breath. Sciatica, left side Tobacco abuse disorder Hyperglycemia - Comprehensive metabolic panel; Future - Hemoglobin A1c; Future Mixed hyperlipidemia - Comprehensive metabolic panel; Future - Lipid panel; Future Fatigue, unspecified type - Thyroid profile includes TSH FT4; Future Thoracic myofascial strain, sequela - tiZANidine (ZANAFLEX) 4 mg tablet; Take 1 tablet (4 mg total) by mouth nightly. Encounter for screening mammogram for malignant neoplasm of breast - Mammography screening bilateral with CAD; Future Personal history of nicotine dependence - CT low dose lung screening (Annual); Future Screen for colon cancer - Cologuard [facility] Gastroesophageal reflux disease with esophagitis without hemorrhage - famotidine (PEPCID) 20 mg tablet; Take 1 tablet (20 mg total) by mouth in the morning and 1 tablet (20 mg total) before bedtime. BMI 26.0-26.9,adult Will put her back on combivent as she was on this in the past, will also provide a rescue inhaler and discouraged the use of primatene Discussed her smoking and its risks and encouraged cessation, she would like to quit but is just not ready, she is agreeable to screening for lung cancer and also discussed mammogram and colon cancer screening She has been having some recent reflux symptoms will try some short term use of pepcid to manage symptoms There is a question of her having diabetes and she has not had lab work in several years and with her other symptoms will draw some baseline labs to assess function She should continue seeing neuro for her left sided sciatica and meds Her left thoracic pain is a little more puzzling, she hasn't had relief from pain management, will try a mild muscle relaxer at hs Will reassess status as labs and screenings tests return and at office visit in 3 months Patient noted to have elevated BMI and the following intervention(s) were applied: encouragement to exercise. ARUN Curiel 07/24/23 1520 documented in this encounter [facility] 02-08-2023 Evaluation note Encounter Date Diagnosis Assessment Notes Jan, Mid back pain (ICD-10 - M54.9) Continue with current treatment plan Jan, Thoracic spondylosis with myelopathy (ICD-10 - M47.14) 67 year old female here for follow up status post thoracic facet medial branch radiofrequency ablation on the left side at T5, T6, and T7 under fluoroscopic guidance. Patient reports minimal pain relief following procedure. She voices continued complaints of mid back pain today. I discussed different treatment options with the patient and I recommend that she give the procedure more time as it can take up to 6 weeks for maximum relief. She is counseled against any excessive bending, lifting or twisting. She is encouraged to continue with conservative treatment options such as ice/heat or topical creams as tolerated in the meantime. Jan, Chronic pain (ICD-10 - G89.29) Follow up after procedure [facility] Other 07-12-2023 Evaluation note* Encounter Date Diagnosis Assessment Notes Treatment Notes Treatment Clinical Notes Dec, Mid back pain (ICD-10 - M54.9) Continue with current treatment plan Dec, Thoracic spondylosis with myelopathy (ICD-10 - M47.14) 67 year old female here for follow up status post left thoracic facet medial branch nerve block at T5, T6 and T7 under fluoroscopic guidance. Patient reports 100% pain relief for 10 hours following procedure. She voices continued complaints of left sided mid back pain today, as expected. Anatomy of spine as well as different treatment options were discussed in detail with patient in regards to patients condition. Patient is a candidate to proceed with a left thoracic facet medial branch radiofrequency ablation under fluoroscopic guidance. Risks and benefits of procedure explained to patient; patient verbalizes understanding. Dec, Chronic pain (ICD-10 - G89.29) Follow up after procedure [facility] Other 07-05-2023 Procedure [facility]06-19-2023 Evaluation note* Encounter Date Diagnosis Assessment Notes Treatment Notes Treatment Clinical Notes Nov, Mid back pain (ICD-10 - M54.9) Continue with current treatment plan Nov, Thoracic spondylosis with myelopathy (ICD-10 - M47.14) 67 year old female here for follow up status post left thoracic facet medial branch nerve block at T5, T6 and T7 under fluoroscopic guidance. Patient reports 100% pain relief for 6 hours following the procedure. She continues to complain of mid back pain today as expected. Different treatment options were discussed in detail with the patient, and I recommend we proceed with a confirmatory left thoracic facet medial branch nerve block under fluoroscopic guidance. Risks and benefits of procedure explained to patient; patient verbalizes understanding. Nov, Chronic pain (ICD-10 - G89.29) Follow up after procedure [facility] Other 06-07-2023 Procedure [facility]04-24-2023 Evaluation note* Encounter Date Diagnosis Assessment Notes Treatment Notes Treatment Clinical Notes Sep, Thoracic spondylosis (ICD-10 - M47.814) 67 year old female here for follow up status post trigger point injections to left thoracic paraspinal muscles under ultrasound guidance. Patient reports minimal pain relief following procedure. She voices continued complaints of mid back pain. She notes she completed 6 sessions of physical therapy and was subsequently discharged as she has not received relief of her symptoms. Different treatment options were discussed in detail with the patient, and I will order updated imaging of the thoracic spine to further evaluate her pain. Sep, Mid back pain (ICD-10 - M54.9) Continue with updated imaging Sep, Myofascial muscle pain (ICD-10 - M79.18) Patient reports minimal relief following trigger point injections to left thoracic paraspinal muscles Sep, Chronic pain (ICD-10 - G89.29) Patient encouraged to follow up after imaging [facility] Other 03-23-2023 Evaluation note* Encounter Date Diagnosis Assessment Notes Treatment Notes Treatment Clinical Notes Aug, Mid back pain (ICD-10 - M54.9) 67 year old female here for follow up to discuss chronic pain. She voices continued complaints of left sided mid back pain. She notes she recently started physical therapy. Different treatment options were discussed in detail with the patient, and I recommend we proceed with a trigger point injection to the left thoracic paraspinal muscles under ultrasound guidance. Risks and benefits of procedure explained to patient; patient verbalizes understanding. Aug, Myofascial muscle pain (ICD-10 - M79.18) Trigger point injection done today Aug, Chronic pain (ICD-10 - G89.29) Patient encouraged to follow up in 4 weeks [facility] Other 11-14-2022 Evaluation note* Encounter Date Diagnosis Assessment Notes Treatment Notes Treatment Clinical Notes May, Myofascial pain (ICD-10 - M79.18) 67 year old female here for follow up to discuss chronic pain. She was last seen November 2020. She voices complaints of mid to low back pain. She reports intermittent weakness in the bilateral lower extremities. Different treatment options were discussed in detail with the patient, I will order updated imaging of the thoracic spine to further evaluate her pain. If her pain persists, we can consider proceeding with a trigger point injection to the left thoracic paraspinal muscles under ultrasound guidance in the future. In the meantime, I will prescribe Diclofenac gel to apply to painful areas as needed. May, Chronic pain (ICD-10 - G89.29) Continue with current treatment plan May, Thoracic spondylosis (ICD-10 - M47.814) Proceed with updated imaging. In the future if the pain persists, we can consider proceeding with a left thoracic MBB followed by a RFA if applicable under fluoroscopic guidance. [facility] Other 09-28-2022 History general Narrative - Reported* Type Description Date Medical History COPD Surgical History back surgery Surgical History gallbladder 03/29/2022 Hospitalization History See Above [facility] Other Chief complaint Narrative - ReportedKEELY AVALOS is being seen for a consultation for pre-operative clearance and Dr. Jacobson- Gallbladder.-[place] [id number] DO Work Phone: Evaluation noteNo assessment information available [facility] Work Phone: Evaluation noteNo [facility] Other Evaluation note* Diagnosis Chronic obstructive pulmonary disease, unspecified COPD type ([facility])- Primary Sciatica, left side Tobacco abuse disorder Hyperglycemia Other abnormal glucose Mixed hyperlipidemia Fatigue, unspecified type Thoracic myofascial strain, sequela Encounter for screening mammogram for malignant neoplasm of breast Personal history of nicotine dependence Screen for colon cancer Special screening for malignant neoplasms, colon Gastroesophageal reflux disease with esophagitis without hemorrhage BMI 26.0-26.9,adult documented in this encounter [facility]* Diagnosis Type 2 diabetes mellitus without complication, without long-term current use of insulin (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) Avascular necrosis ([facility]) Aseptic necrosis of bone, site unspecified documented in this encounter [facility]* Diagnosis Bilateral shoulder pain, unspecified chronicity- Primary Myalgia Unspecified myalgia and myositis documented in this encounter [facility]* Diagnosis Bilateral shoulder pain, unspecified chronicity- Primary Myalgia Unspecified myalgia and myositis documented in this encounter [facility]* Diagnosis Type 2 diabetes mellitus without complication, without long-term current use of insulin ([facility])- Primary Mixed simple and mucopurulent chronic bronchitis (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) Type 2 diabetes mellitus without complication, without long-term current use of insulin ([facility]) Other hyperlipidemia Essential hypertension Unspecified essential hypertension Centrilobular emphysema ([facility]) [facility] Diagnosis Diarrhea, unspecified type- Primary Type 2 diabetes mellitus without complication, without long-term current use of insulin ([facility]) Mixed simple and mucopurulent chronic bronchitis ([facility]) Other chronic bronchitis documented in this encounter [facility]* Diagnosis Chronic diarrhea- Primary Diarrhea Chronic diarrhea Diarrhea Type 2 diabetes mellitus without complication, without long-term current use of insulin ([facility])- Primary documented in this encounter [facility] SystemHistory of Present illness Narrative* Patient is here for cardiovascular evaluation for preoperative risk assessment requested by Dr. Ibarra. She denies any previous cardiac history. She was diagnosed recently with gallbladder disease andscheduled to undergo surgery. She was noted to have abnormal EKG showing ischemic ST-T changes. Patient admits to limited exercise tolerance. She is a long-term smoker. She does have dyspnea on exerti on. She is Functional class II. EKG showed diffuse lateral ST-T changes. The patient was diagnosed recently with diabetes mellitus. She denies any previous history of coronary artery disease, congestive heart failure or valvular heart disease. The patient denies any previous cardiac testing. * Assessment * 1. Complaint of shortness of breath with abnormal EKG consistent with ischemic ST-T changes. It is imperative to exclude underlying ischemic heart disease prior to surgery * 2. Tobacco use and COPD * 3. Abnormal EKG * 4. Gallbladder disease * 5. Diabetes mellitus * plan * 1. I recommended the patient to proceed with Lexiscan myocardial fusion study prior to her surgery.The rationale behind that discussed with patient at length she understood and agreed. The patient is self-pay and she was educated and counseled regarding the cost of that * 2. The patient was counseled regarding smoking cessation * 3. Operative risk assessment will hinge upon the results of the stress test. All of the above reviewed with patient at great length she understood and agreed -[facility] Zolpy DO Work Phone: History of Present illness Narrative* Patient here for follow-up to management for recent evaluation for shortness of breath, abnormal EKG, tobacco use and diabetes mellitus. Since last time I saw her she reports he feels well. She does not complain of dyspnea, palpitation, lightheadedness, dizziness or syncope. Recent stress test was negative. She underwent cholecystectomy without any cardiac issues. * Assessment * 1. Complaint of shortness of breath with abnormal EKG. Recent stress test was negative for myocardial ischemia and preserved LV systolic function * 2. Tobacco use and COPD * 3. Abnormal EKG * 4. Gallbladder disease status post recent cholecystectomy palpitation * 5. Diabetes mellitus * plan * 1. I reviewed with the patient as above her stress test * 2. The patient was counseled regarding smoking cessation * 3. I recommended follow-up in the future on as-needed basis -[facility] DO Work Phone: InstructionsNot on filedocumented in this encounter [facility] filedocumented in this encounter [facility] filedocumented in this encounter [facility]Not on filedocumented in this encounter [facility]ructionsNot on filedocumented in this encounter [facility]ructionsNot on filedocumented in this encounter [facility]ructionsNot on filedocumented in this encounter [facility] SystemReason for referral (narrative)* Consultation (Routine) - Pending Review Specialty Diagnoses / Procedures Referred By Contac t Referred To Contact Cardiology Diagnoses 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 ([facility]) Suzanna Strong APRN-FNP [address] [place] [address] [facility] Cardiology [address] [address] Referral ID Status Reason Start Date Expiration Date Visits Requested Visits Authorized [id number] Pending Review Specialty Services Required 08/08/2023 08/07/2024 1 1 * Consultation (Routine) - Pending Review Specialty Diagnoses / Procedures Referred By Contact Referred To Contact Orthopedic Surgery / MED-SURG/ORTHOPEDICS Diagnoses Avascular necrosis ([facility]) Suzanna Strong APRN-FNP [address] [place] [address] Cecilio Pinon, DO [address] [facility] [address] [place] [address] Referral ID Status Reason Start Date Expiration Date Visits Requested Visits Authorized [id number] Pending Review Specialty Services Required 08/08/2023 08/07/2024 1 1 * Consultation (Routine) - Pending Review Specialty Diagnoses / Procedures Referred By Contac t Referred To Contact Pulmonary Medicine Diagnoses Mixed simple and mucopurulent chronic bronchitis ([facility]) Suzanna Strong, ARUN [address] [place] [address] Kristian Perez, DO [address] [place] [address] Referral ID Status Reason Start Date Expiration Date Visits Requested Visits Authorized [id number] Pending Review Specialty Services Required 08/08/2023 08/07/2024 1 1 [facility] Consultation (Routine) - Pending Review Specialty Diagnoses / Procedures Referred By Contac t Referred To Contact Physical Therapy Diagnoses Myalgia Procedures SC OFFICE/OUTPATIENT [facility] 60 MINUTES Jacques Land, PT [address] [place] [address] Bianca Pickens, PT 112 [facility] [address] [place] [address] Referral ID Status Reason Start Date Expiration Date Visits Requested Visits Authorized [id number] Pending Review Consult and Treat 08/13/2023 02/09/2024 1 1 [facility] Summary Purpose Family History No Family History Records Found Relationship Condition Age at Onset Recorded Date/T raz Not Specified Heart murmur Unknown Unknown Family Member Name Dates Details Family history of heart murm ur: Mother(V17.49, Z82.49) Status:Active Family history of rheumatic fever: Mother(V17.49, Z82.49) Status:Active Unknown Family Member Name Dates Details Family history of heart murm ur: Mother(V17.49, Z82.49) Status:Active Family history of rheumatic fever: Mother(V17.49, Z82.49) Status:Active Unknown Family Member Name Dates Details Family history of heart murm ur: Mother(V17.49, Z82.49) Status:Active Family history of rheumatic fever: Mother(V17.49, Z82.49) Status:Active Unknown Family Member Name Dates Details Family history of heart murm ur: Mother(V17.49, Z82.49) Status:Active Family history of rheumatic fever: Mother(V17.49, Z82.49) Status:Active Unknown Family Member Name Dates Details Family history of heart murm ur: Mother(V17.49, Z82.49) Status:Active Family history of rheumatic fever: Mother(V17.49, Z82.49) Status:Active Advance Directives No Advanced Directives Records Found Advance Directive Response Recorded Date/ Time Advance Directives No January 17 8:49am Advance Directive Response Recorded Date/ Time Advance Directives No January 17 7:49am Chief Complaint and Reason for Visit Chief Complaint Gallstones Chief Complaint Gallstones R94.31 R06.20 Z01.810 Chief Complaint Gallstones R94.31 R06.20 Z01.810 Gall Stones Chief Complaint Gallstones Gallstones R94.31 R06.20 Z01.810 Gall Stones Chief Complaint Gallstones Gallstones R94.31 R06.20 Z01.810 Gall Stones Gall Stones Chief Complaint Gallstones Gallstones R94.31 R06.20 Z01.810 Gall Stones Gall Stones Gall Stones Chief Complaint R94.31 R06.20 Z01.81 0 Gall Stones Gall Stones Gall Stones M47.814 Chief Complaint mid back pain Chief Complaint mid back pain M47.814 m54.9 Back Pain Chief Complaint mid back pain M47.814 m54.9 Back Pain Pain Chief Complaint r27.0 r26.89 Chief Complaint KEELY AVALOS is being seen for a 3 month follow-up of. 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 ([facility]-HCC) Other hyperlipidemia BURCH (dyspnea on exertion) Procedures Echo complete W/O contrast Juan Caro MD [address] [place] [address] [place] [address] [place] [address] Phone: [phone] Referral ID Status Reason Start Date Expiration Date V isits Requested Visits Authorized [id number] Authorized 09/17/2023 12/15/2023 1 1 Specialty Diagnoses / Procedures Referred By Contac t Referred To Contact Diagnoses 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 ([facility]) BURCH (dyspnea on exertion) Procedures Nuc stress Lexiscan Juan Caro MD [address] [place] [address] [address] [place] [address] [place] [address] Phone: [phone] Referral ID Status Reason Start Date Expiration Date V isits Requested Visits Authorized [id number] Authorized 09/17/2023 12/15/2023 5 5 Specialty Diagnoses / Procedures Referred By Contac t Referred To Contact Radiology Diagnoses Personal history of nicotine dependence Procedures CT low dose lung screening (Annual) JessySuzanna monterroso, FIRE BOAT ENGINEER-MAINFRAME SYSTEMS ADMINISTRATOR [address] [place] [address] Referral ID Status Reason Start Date Expiration Date V isits Requested Visits Authorized [id number] Pending Review 07/24/2023 07/23/2024 1 1 Additional Source Comments INFORMATION SOURCE (unrecogn ized section and content) DATE CREATED AUTHOR 12/21/2021 [facility] DATE CREATED AUTHOR AUTHOR'S ORGANIZ ATION 04/11/2022 [facility] DATE CREATED AUTHOR AUTHOR'S ORGANIZ ATION 04/12/2022 [employer] DATE CREATED AUTHOR AUTHOR'S ORGANIZ ATION 05/23/2023 [facility] DATE CREATED AUTHOR AUTHOR'S ORGANIZ ATION 08/31/2023 [facility] DATE CREATED AUTHOR AUTHOR'S ORGANIZ ATION 09/19/2023 [facility] DATE CREATED AUTHOR AUTHOR'S ORGANIZ ATION 09/25/2023 [facility] EPIC DATE CREATED AUTHOR AUTHOR'S ORGANIZ ATION 10/12/2023 [facility] Care Teams (unrecognized sec tion and content) Team Status: Inactive Member Role Status Dates Donny Jacobson DO Attending Provider Active Hayden Dodson DO Primary Care Provider Active Team Status: Active Member Role Status Dates Hayden Dodson DO Primary Care Provider Active Team Status: Inactive Member Role Status Dates Hayden Dodson DO Primary Care Provider Active Yakelin Crowe MD Attending Provider Active Elle Loung MD Referring Provider Active Team Status: Inactive Member Role Status Dates Hayden Dodson DO Primary Care Provider Active Donny Jacobson DO Attending Provider Active Team Status: Inactive Member Role Status Dates Hayden Dodson DO Primary Care Provider Active Ino Perkins MD Attending Provider Active Team Status: Active Member Role Status Dates PHYSICIAN NO FAMILY Primary Care Provider Active Team Status: Inactive Member Role Status Dates ARUN Argueta-Beverley Attending Provider Active PHYSICIAN NO FAMILY Primary Care Provider Active Flight Test Supervisor Relationship Specialty Start Date End Date Suzanna Strong APRN-FNP [address] [place] [address] PCP - General Internal Medicine 07/24/23 Flight Test Supervisor Relationship Specialty Start Date End Date Suzanna Strong, FIRE BOAT ENGINEER-MAINFRAME SYSTEMS ADMINISTRATOR [address] [facility] [place] [address] PCP - General Internal Medicine 07/24/23 Flight Test Supervisor Relationship Specialty Start Date End Date Suzanna Strong, FIRE BOAT ENGINEER-MAINFRAME SYSTEMS ADMINISTRATOR [address] [facility] [place] [address] PCP - General Internal Medicine 07/24/23 Flight Test Supervisor Relationship Specialty Start Date End Date Suzanna Strong FIRE BOAT ENGINEER-MAINFRAME SYSTEMS ADMINISTRATOR [address] [facility] [place] [address] PCP - General Internal Medicine 07/24/23 Flight Test Supervisor Relationship Specialty Start Date End Date Vanesa Tomas MD [address] [place] [address] PCP - General Internal Medicine 08/13/23 Flight Test Supervisor Relationship Specialty Start Date End Date Vanesa Tomas MD [address] [place] [address] PCP - General Internal Medicine 08/13/23 Flight Test Supervisor Relationship Specialty Start Date End Date Vanesa Tomas MD [address] [place] [address] PCP - General Internal Medicine 08/13/23 Flight Test Supervisor Relationship Specialty Start Date End Date Suzanna Strong, FIRE BOAT ENGINEER-MAINFRAME SYSTEMS ADMINISTRATOR [address] [facility] [place] [address] PCP - General Internal Medicine 07/24/23 Flight Test Supervisor Relationship Specialty Start Date End Date Suzanna Strong, [facility] [address] [facility] [place] [address] PCP - General Internal Medicine 07/24/23 Flight Test Supervisor Relationship Specialty Start Date End Date Suzanna Strong [facility] [address] [facility] [address] PCP - General Internal Medicine 07/24/23 Flight Test Supervisor Relationship Specialty Start Date End Date Suzanna Strong [facility] [address] [place] [facility] [address] PCP - General Internal Medicine 07/24/23 Flight Test Supervisor Relationship Specialty Start Date End Date Suzanna Strong [facility] [address] [facility] [address] PCP - General Internal Medicine 07/24/23 Flight Test Supervisor Relationship Specialty Start Date End Date Suzanna Strong [facility] [address] [facility] [address] PCP - General Internal Medicine 07/24/23 Flight Test Supervisor Relationship Specialty Start Date End Date Suzanna Strong [facility] [address] [facility] [place] [address] PCP - General Internal Medicine 07/24/23 Goals (unrecognized section and content) Goals may be documented in a n alternate sectionGoals may be documented in an alternate sectionGoals may be documented in an alternate sectionGoals may be documented in an alternate sectionGoals may be documented in an alternate sectionNo InformationNo InformationGoals may be documented in an alternate sectionNo InformationNo InformationNo InformationNo InformationNo InformationNo InformationNo InformationGoals may be documented in an alternate sectionNot on filedocumented as of this encounterNot on filedocumented as of this encounterNot on filedocumented as of this encounterNot on filedocumented as of this encounterNot on filedocumented as of this encounterNot on filedocumented as of this encounterNot on filedocumented as of this encounterNot on filedocumented as of this encounterNot on filedocumented as of this encounterNot on filedocumented as of this encounterNot on filedocumented as of this encounter REASON FOR VISIT (unrecogniz ed section and content) Reason Comments New Patient Reason Comments dicuss CT results Reason Comments Diarrhea months Reason Comments 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) Suzanna Strong, FIRE BOAT ENGINEER-MAINFRAME SYSTEMS ADMINISTRATOR [address] [place] [address] [facility] Cardiology [address] [place] [address] Referral ID Status Reason Start Date Expiration Date Visits Requested Visits Authorized [id number] Pending Review Specialty Services Required 08/08/2023 08/07/2024 1 1 Reason Comments Diarrhea Stomach pain with di arrhea a couple weeks FOR RECORDS PERTAINING TO PATIENTS WHO ARE OR HAVE BEEN ENROLLED IN A CHEMICAL DEPENDENCY/SUBSTANCEABUSE PROGRAM, SOME INFORMATION MAY BE OMITTED. This clinical summary was aggregated from multiple sources. Caution should be exercised in using it in the provision of clinical care. This summary normalizes information from multiple sources, and as a consequence, information in this document may materially change the coding, format and clinical context of patient data. In addition, data may be omitted in some cases. CLINICAL DECISIONS SHOULD BE BASED ON THE PRIMARY CLINICAL RECORDS. [employer] provides no warranty or guarantee of the accuracy or completeness of information in this document.
--- NOTE | 2023-10-16 10:23 | RT_ITS ---
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 Findings were not considered accurate and reproducible due to difficulty performing multiple maneuvers according to ATS standards. Both pre- and post-bronchodilator values utilized for spirometry. Spirometry (based on pre-bronchodilator values): -FEV1/FVC: Reduced @ 60% -FEV1: Moderately reduced @ 72% -FVC: Normal @ 91% -WKI87-92%: Reduced @ 39% -There is no significant bronchodilator response. Lung volumes by plethysmography: -RV: Increased @ 147% -TLC: Normal @ 110% Diffusion capacity: -DLCO: Low normal @ 81% when corrected for Hb 15.5g/dL Flow-volume loop: -Abnormal spikes in the expiratory limb suggestive of a glottic maneuver (e.g. cough) Impressions: -Spirometry suggests moderate obstruction. There is no bronchodilator response. An elevated RV suggests air trapping. The diffusion capacity is normal. Though study did not meet ATS standards, the results would be consistent with a moderate obstructive process such as COPD. Clinical correlation required. Electronically Signed On 10-17-2023 7:23:38 EDT by Kristian Perez
[2023-10-16] MEDS: ALBUTEROL SULFATE 2.5 MG/3 ML VIAL NEB IH (11:03)
== END 2023-10-16 09:07 | disposition home or self-care (01) ==
LOC: CARD 09:07
PROVIDERS: PCP Nurse Practitioner Family; Visit Provider Internal Medicine
DX: J43.9 Emphysema, unspecified (principal)
CPT/HCPCS: 36415; 85018; 94060; 94726; 94729

== ENCOUNTER 2024-08-06 08:36 | Outpatient (OUT) | payer MEDICARE, SELFPAY ==
--- NOTE | 2024-08-06 08:46 | CT_ITS ---
[address] [address] Patient Name: VANESSA CASTAÑEDA MRN: [id number] date: 1955 Sex: F Assigned Patient Location: CT Current Patient Location: CT Accession/Order Number: [id number] Exam Date: 08/06/2024 08:52 Report Date: 08/06/2024 13:39 At the request of: YARON MITCHELL Procedure: CT lung screening low-dose EXAMINATION: CT lung screening low-dose HISTORY: Nicotine Dependence COMPARISON: CT Lung Screening 08/06/2023 TECHNIQUE: Axial, Coronal, and Sagittal images were created without the administration of IV contrast material. Dose reduction techniques were achieved by using automated exposure control and/or adjustment of mA and/or kV according to patient size and/or use of iterative reconstruction technique. FINDINGS: LUNGS: No suspicious nodules, acute infiltrates, or significant chronic interstitial changes. PLEURA: No mass, effusion, or pneumothorax. VASCULATURE: No abnormality. JASON: No mass or pathologic adenopathy. MEDIASTINUM: No mass or pathologic adenopathy. CARDIAC: No enlargement, pericardial thickening, or pericardial effusion. Coronary Artery calcifications: Coronary calcifications are moderate. AORTA: No aneurysm or dissection. CHEST WALL: No mass or axillary adenopathy BONES: Stable remote mild compression fracture of L1 vertebral body. Grossly stable mild-moderate avascular necrosis of the humeral heads. LIMITED ABDOMEN: No suspicious findings. Limited images of the upper abdomen. OTHER: Negative. CT/CT lung screening low-dose IMPRESSION: 1. Lung-RADS Category 1 Negative. No nodules and definitely benign nodules. Continue annual screening with LDCT in 12 months. 2. Stable remote mild compression fracture of L1 vertebral body. 3. Stable mild-moderate avascular necrosis of the humeral heads. Electronically authenticated by: RONNY BENÍTEZ Date: 08/06/2024 13:39
--- OUTSIDE RECORDS SUMMARY | 2024-08-06 08:49 | XMS_ITS | CCD ---
Author Organization [facility] Care Team Providers Care Asbestos Cement Sheet Supervisor Name Role Phone HOUSE, DR BLAKE Primary Care Unavailable WILSONDALE, DR BLAKE Admitting Unavailable ZIEB, DR RONNY Gomez Consulting Unavailable WILSONDALE, DR BLAKE Attending Unavailable WILSONDALE, DR BLAKE Primary Care Unavailable WILSONDALE, DR HAYDEN Alvaradoitting Unavailable WILSONDALE, DR BLAKE Attending Unavailable WILSONDALE, DR BLAKE Consulting Unavailable WILSONDALE, DR BLAKE Primary Care Unavailable WILSONDALE, DR BLAKE Admitting Unavailable FAULKNER, DR ROJAS Kumar Consulting Unavailable WILSONDALE, DR BLAKE Attending Unavailable WILSONDALE, DR BLAKE Consulting Unavailable DO Donny Jacobson Attending Provider DO Hayden Dodson Primary Care Provider Hayden Dodson Unavailable Unavailable Unavailable MD Yakelin Crowe Attending Provider MD Elle Luong Referring Provider Amrita, Dr. Hamlin Attending Unavaila ble [place], Dr. Hayden Mac Primary [facility] Unava ilable Amrita, Dr. Hamlin Attending Unavaila ble Ninateresa, Dr. Hamlin Referring Unavaila [facility], Dr. Hayden Mac Primary Care Unava ilable Amrita, Dr. Hamlin Attending [facility] Ham[facility] Referring Unavaila [facility], Dr. Hayden Mac Primary Care Unava ilable Ino Perkins Unavailable DO Hayden Dodson Primary Care Provider MD Yakelin Crowe Attending Provider MD Elle Luong Referring Provider DO Donny Jacobson Attending Provider MD Ino Perkins Attending Provider [phone] Arnulfo DO Blake Primary Care Provider [phone] MD Ino Perkins Attending Provider Vickie Ayon Unavailable LUCY Moran-PUNCH PRESS FEEDER-C Renata Mullins Attending Provider NO FAMILY, PHYSICIAN Primary Care Provider Unava ilable Jessys LUCY-Suzanna FALLON Primary Care Provider Vanesa Tomas MD Primary Care Provider [phone] SUZANNA GREEN ROSE Referring Unavailable KUNS, CONI Primary Care Unavailable KUNS, CONI Referring Unavailable KUNS, CONI Primary Care Unavailable NO FAMILY, PHYSICIAN Primary Care Provider Unava ilable LUCY Moran-LEEANNE-C Renata Mullins Attending Provider Ino Perkins Admitting Unavailable Ino Perkins Attending Unavailable Hayden Dodson Primary Care Unavailable Renata Moran Admitting Unavailable Renata Moran Attending Unavailable NO FAMILY, PHYSICIAN Primary Care Unavailable Renata Moran Attending Unavailable NO FAMILY, PHYSICIAN Primary Care Unavailable Renata Moran Admitting Unavailable ESPINOZA, MUJEEB A Attending Unavailable JESSYS, CONI Referring Unavailable KUNS, CONI Primary Care Unavailable KUNS, CONI Referring Unavailable KUNS, CONI Primary Care Unavailable VANESA TOMAS Admitting Unavailable VANESA TOMAS Attending Unavailable JESSYS, CONI Primary Care Unavailable VANESA TOMAS Attending Unavailable VANESA TOMAS Referring Unavailable KUNS, CONI Primary Care Unavailable ESPINOZA, MUJEEB A Attending Unavailable ESPINOZA, MUJEEB A Referring Unavailable KUNS, CONI Primary Care Unavailable ESPINOZA, MUJEEB A Attending Unavailable ESPINOZA, MUJEEB A Referring Unavailable KUNS, CONI Primary Care Unavailable ESPINOZA, MUJEEB A Attending Unavailable ESPINOZA, MUJEEB A Referring Unavailable KUNS, CONI Primary Care Unavailable ESPINOZA, MUJEEB A Attending Unavailable ESPINOZA, MUJEEB A Referring Unavailable KUNS, CONI Primary Care Unavailable VANESA TOMAS L Referring Unavailable KUNS, CONI Primary Care Unavailable COLT COVARRUBIAS Attending Unavailable KUNS, CONI Referring Unavailable HILARIO DIA Primary Care Unavailable Dia PACK PULLER-GLUE SPREADER, Hilario Laurita Primary Care Provid er SUZANNA GREEN Attending Unavailable KUNS, CONI Referring Unavailable KUNS, CONI Primary Care Unavailable VANESA TOMAS Attending Unavailable KUNS, CONI Referring Unavailable KUNS, CONI Primary Care Unavailable KUNS, SUZANNA GIBSON Attending Unavailable HAYDEN DODSON Referring Unavailable KUNS, CONI Primary Care Unavailable HILARIO DIA Attending Unavailable KUNS, CONI Referring Unavailable KUNS, CONI Primary Care Unavailable DIA, HILAIRO J Attending Unavailable DIAHILARIO Referring Unavailable DIA, HILARIO J Primary Care Unavailable ASHWIN DUDLEY Attending Unavailable DIA, HILARIO J Referring Unavailable DIA, HILARIO J Primary Care Unavailable KUNS, SUZANNA GIBSON Attending Unavailable KUNS, CONI Referring Unavailable KUNS, CONI Primary Care Unavailable KUNS, SUZANNA GIBSON Attending Unavailable KUNS, CONI Referring Unavailable KUNS, CONI Primary Care Unavailable KUNS, SUZANNA GIBSON Attending Unavailable KUNS, CONI Referring Unavailable KUNS, CONI Primary Care Unavailable Zack Alvares DO Unavailable RAQUEL GALVAN Attending Unavailable BIANCA WANG Attending Unavailable YADI GARCIA Attending Unavailable RAQUEL GALVAN Attending Unavailable BIANCA WANG Attending Unavailable EDNA MICHAEL Attending Unavailable BIANCA WANG Attending Unavailable BIANCA WANG Attending Unavailable RENATA MORAN Attending Unavailable DEAN, RENATA Attending Unavailable DEAN, RENATA Attending Unavailable Allergies Allergy Classification Reported Allergen(s) Allergy Type Date of Onset Reaction(s) Facility (20 sources) metFORMIN; Translations: [METFORMIN] Drug Allergy 08-23-2023 [facility] Medications Current Medications Medication Drug Class(es) Dates Sig (Normalized) Sig (Original) [id number] 200 actuat albuterol 0.09 mg/actuat metered dose inhaler (20 sources) beta2-Adrenergic Agonist Start: 02-18-2024 End: 05-26-2024 take 2 puff(s) by inhalation every six hours as needed for wheezing albuterol (PROVENTIL HFA;VENTOLIN HFA) 90 mcg/actuation inhaler Indications: Chronic obstructive pulmonary disease, unspecified COPD type (CMS-HCC) Inhale 2 puffs every 6 (six) hours as needed for wheezing or shortness of breath. 18 g 1 05/26/2024 Active Start: 07-24-2023 take 2 puff(s) by in halation every six hours albuterol HFA 90 mcg/act inhaler Inhale 2 puffs every 6 (six) hours if needed 07/24/2023 Active Start: 07-24-2023 take 2 puff(s) by in halation every six hours as needed for wheezing albuterol (PROVENTIL HFA;VENTOLIN HFA) 90 mcg/actuation inhaler Indications: Chronic obstructive pulmonary disease, unspecified COPD type (CMS-HCC) Inhale 2 puffs every 6 (six) hours as needed for wheezing or shortness of breath. 18 g 1 07/24/2023 Active 120 actuat albuterol 0.1 mg/actuat / ipratropium bromide 0.02 mg/actuat inhalation spray (20 sources) Anticholinergic, beta2-Adrenergic Agonist Start: 07-24-2023 ipratropium-albuterol (Combivent Respimat) 20-100 MCG/ACT inhaler Inhale 1 puff in the morning and 1 puff at noon and 1 puff in the evening and 1 puff before bedtime. 07/24/2023 Active Start: 07-24-2023 End: 09-17-2023 ipratropium-albuteroL (COMBI VENT RESPIMAT) 20-100 mcg/actuation mist Indications: Chronic obstructive pulmonary disease, unspecified COPD type (CMS-HCC) Inhale 1 puff in the morning and 1 puff at noon and 1 puff in the evening and 1 puff before bedtime. 4 g 5 07/24/2023 09/17/2023 Discontinued (Patient Stopped On Own) Start: 03-17-2022 take 20-100 ug by in halation every six hours Ipratropium-Albuterol (Combivent Respimat) 20-100 mcg/actuation Mist Active 1 PUFF INHALATION Q6H March 17, 2022 12:00am Combivent Respim at 20-100 MCG/ACT Inhalation Aerosol Solution As directed. Quantity: 0 Refills: 0 Ordered: 20-Jan-2022 DO Active aspirin 81 mg delayed release oral tablet (20 sources) Platelet Aggregation Inhibitor, Nonsteroidal Anti-inflammatory Drug Start: 06-18-2023 take 1 tablet by mouth in the morning aspirin 81 mg Take 1 tablet (81 mg total) by mouth in the morning. 06/18/2023 Active atropine sulfate 0.025 mg / diphenoxylate hydrochloride 2.5 mg oral tablet (20 sources) Anticholinergic, Cholinergic Muscarinic Antagonist, Antidiarrheal Start: 08-23-2023 take 1 tablet by mouth twice daily as needed for diarrhea diphenoxylate-atro pine (LomotiL) 2.5-0.025 mg per tablet Indications: Functional diarrhea Take 1 tablet by mouth 2 (two) times a day as needed for diarrhea. 60 tablet 08/23/2023 Active azithromycin 250 mg oral tablet (2 sources) Macrolide Antimicrobial Start: 05-26-2024 End: 05-31-2024 azithromycin (ZITHROMAX) 250 mg tablet Take 2 tablets the first day, then 1 tablet daily for 4 days. 6 tablet 05/26/2024 05/31/2024 Active celecoxib 200 mg oral capsule (9 sources) Nonsteroidal Anti-inflammatory Drug Start: 12-13-2020 take 1 capsule by mouth every twenty-four hours CeleBREX 200 MG 1 capsule with food Orally Once a day for 30 day(s) G89.29 Chronic Pain Nov, Active Combivent 120-20 MCG/ACT (9 sources) dextromethorphan hydrobromide 1.5 mg/ml / pyrilamine maleate 1.5 mg/ml oral solution (19 sources) Uncompetitive Z-abgzos-H-aspartate Receptor Antagonist, Sigma-1 Agonist Start: 08-27-2023 take 5 mL by mouth four times daily as needed for cough and congestion pyrilamine-dextrom ethorphan 7.5-7.5 mg/5 mL liquid Take 5 mL [...] Capsule Active 50 MG PO Bedtime January 18, 2022 12:00am take 1 capsule by mo ut once daily at bedtime as needed diphenhydrAMINE (BENADRYL) 25 mg capsule 1 capsule at bedtime as needed Orally Once a day Active 0.5 ml dulaglutide 1.5 mg/ml auto-injector (19 sources) GLP-1 Receptor Agonist Start: 04-14-2024 inject 0.5 mL by subcutaneous injection every week dulaglutide (TRULICITY) 0.75 mg/0.5 mL pen injector Indications: Type 2 diabetes mellitus without complication, without long-term current use of insulin (CMS-HCC) Inject 0.5 mL (0.75 mg total) under the skin once a week. 2 mL 6 04/14/2024 Active Start: 02-22-2024 End: 04-11-2024 inject 0.5 mL by subcutaneous injection every week dulaglutide (TRULICITY) 0.75 mg/0.5 mL pen injector Indications: Type 2 diabetes mellitus without complication, without long-term current use of insulin (CMS-HCC) Inject 0.5 mL (0.75 mg total) under the skin once a week. 2 mL 3 04/08/2024 04/11/2024 Discontinued (Reorder) Start: 09-18-2023 End: 09-27-2023 inject 1.5 mg [...] week. 2 mL 0 08/23/2023 09/18/2023 Discontinued dulaglutide (TRULICITY) 3 mg/0.5 mL pen injector (2 sources) Start: 09-27-2023 inject 3 mg by subcutaneous injection every week dulaglutide (TRULICITY) 3 mg/0.5 mL pen injector Inject 3 mg under the skin once a week. 2 mL 5 09/27/2023 Active DULoxetine 30 mg delayed release oral capsule (20 sources) Serotonin and Norepinephrine Reuptake Inhibitor Start: 01-18-2022 End: 01-06-2025 take 1 capsule by mouth in the morning DULoxetine (CYMBALTA) 30 mg capsule Take 1 capsule (30 mg total) by mouth in the morning. 05/18/2023 Active famotidine 20 mg oral tablet (20 sources) Histamine-2 Receptor Antagonist Start: 07-14-2024 End: 07-14-2024 take 1 tablet by mouth once daily, then take 1 tablet by mouth once daily at bedtime famotidine (PEPCID) 20 mg tablet Indications: Gastroesophageal reflux disease with esophagitis without hemorrhage Take 1 tablet (20 mg total) by mouth nightly. TAKE 1 TABLET BY MOUTH EVERY MORNING AND BEFORE BEDTIME 60 tablet 5 07/14/2024 07/14/2024 Discontinued Start: 07-24-2023 End: 07-14-2024 take 1 tablet by mouth once daily, then take 1 tablet by mouth once daily at bedtime famotidine (PEPCID) 20 mg tablet Indications: Gastroesophageal reflux disease with esophagitis without hemorrhage Take 1 tablet (20 mg total) by mouth nightly. TAKE 1 TABLET BY MOUTH EVERY MORNING AND BEFORE BEDTIME 60 tablet 5 02/18/2024 07/14/2024 Discontinued (Reorder) 30 actuat fluticasone furoate 0.1 mg/actuat / umeclidinium 0.0625 mg/actuat / vilanterol 0.025 mg/actuat dry powder inhaler (20 sources) Anticholinergic, Corticosteroid, beta2-Adrenergic Agonist Start: 06-02-2024 take 1 puff(s) by inhalation once daily ydcmictxjeb-xbqtnxjrq-denznicr (TRELEGY ELLIPTA) 100-62.5-25 mcg blister with device Indications: Mixed simple and mucopurulent chronic bronchitis (CMS-HCC) Inhale 1 puff once daily. 2 each 6 06/02/2024 Active Start: 08-08-2023 End: 05-30-2024 take 1 puff(s) by inhalation once daily scomslxhztx-jjlyzuout-xhicberd (TRELEGY ELLIPTA) 100-62.5-25 mcg blister with device Indications: Mixed simple and mucopurulent chronic bronchitis (CMS-HCC) Inhale 1 puff once daily. 2 each 04/08/2024 05/30/2024 Discontinued (Reorder) gabapentin 600 mg oral tablet (20 sources) Anti-epileptic Agent Start: 01-24-2023 End: 08-02-2024 take 1 tablet by mouth in the morning, then take 1 tablet by mouth at bedtime gabapentin (NEURONTIN) 600 mg tablet Take 1 tablet (600 mg total) by mouth in the morning and 1 tablet (600 mg total) before bedtime. 07/16/2023 Active Start: 01-18-2022 End: 01-24-2023 take 300 mg by mouth twice daily Gabapentin Discontinued 300 MG PO Twice daily March 17, 2022 12:00am January 24, 2023 8:42am take 1 tablet by zachary th every twelve hours Gabapentin 600 MG 1 tablet Orally bid Active magnesium sulfate 0.0277 meq/ml / potassium sulfate 0.0374 meq/ml / sodium sulfate 0.257 meq/ml oral solution (3 sources) Start: 09-23-2023 take 177 mL by mouth in the morning Na Sulfate-K Sulfate-Mg Sulf 17.5-3.13-1.6 GM/177ML solution TAKE 177 MILLILITERS BY MOUTH IN THE MORNING AND 177 MILLILITERS ... (REFER TO PRESCRIPTION NOTES). 09/23/2023 Active meloxicam 15 mg oral tablet (3 sources) Nonsteroidal Anti-inflammatory Drug take 1 tablet by mouth once daily meloxicam (Mobic) 15 MG tablet Take 15 mg by mouth Daily Active methylPREDNISolone 4 mg oral tablet (3 sources) Corticosteroid Start: 05-26-2024 End: 06-06-2024 take 1 tablet by mouth in the morning methylPREDNISolone (MEDROL, ANITRA,) 4 mg tablet Take 1 tablet (4 mg total) by mouth in the morning. follow package directions. 21 tablet 05/26/2024 06/06/2024 Discontinued (Therapy completed) nystatin [id number] unt/ml oral suspension (3 sources) Polyene Antifungal Start: 11-14-2023 nystatin (Mycostatin) [id number] UNIT/ML suspension Take 5 mL by mouth in the morning and 5 mL at noon and 5 mL in the evening and 5 mL before bedtime. 11/14/2023 Active pantoprazole 20 mg delayed release oral tablet (4 sources) Proton Pump Inhibitor Start: 11-07-2023 End: 04-08-2024 take 1 tablet by mouth in the morning pantoprazole (ProtoNix) 20 MG EC tablet Take 20 mg by mouth in the morning. 11/07/2023 Active predniSONE 10 mg oral tablet (11 sources) Start: 06-10-2024 predniSONE (DELTASONE) 10 mg tablet Take 5 tablets daily x 2 days then take 4 tablets daily x 2 days then take 3 tablets daily x 2 days then take 2 tablets daily x 2 days then take 1 tablet daily x 2 days then take 0.5 tablet daily x 2 days 31 tablet 06/10/2024 Active Start: 06-07-2024 End: 06-10-2024 predniSONE (DELTASONE) 10 mg tablet 31 tablet 06/07/2024 06/10/2024 Discontinued (Reorder) Start: 06-06-2024 End: 06-07-2024 predniSONE (DELTASONE) 10 mg tablet Take 5 tablets daily for 2 days then 4 tablets daily for 2 days then 3 tablets daily for 2 days then 2 tablets daily for 2 days then 1 tablet daily for 2 days then half a tablet daily for 2 days then stop 17 tablet 06/06/2024 06/07/2024 Discontinued Start: 04-08-2024 End: 05-26-2024 predniSONE (DELTASONE) 20 mg tablet Indications: COPD exacerbation ([facility]) Take 1 tablet (20 mg total) by mouth See Admin Instructions. 1 tab 2x daily x3 days, 1 tab daily x3 days, 1/2 tablet daily x4 days 11 tablet 04/08/2024 05/26/2024 Discontinued (Therapy completed) rosuvastatin calcium 20 mg oral tablet (20 sources) HMG-CoA Reductase Inhibitor Start: 12-09-2023 take 1 tablet by mouth once daily rosuvastatin (CRESTOR) 20 mg tablet Take 1 tablet (20 mg total) by mouth nightly. 90 tablet 3 03/31/2024 Active Start: 09-17-2023 take 1 tablet by zachary once daily rosuvastatin (CRESTOR) 20 mg tablet Take 1 tablet (20 mg total) by mouth nightly. 90 tablet 3 09/17/2023 Active Start: 07-25-2023 End: 09-17-2023 take 1 tablet by mouth once daily rosuvastatin (CRESTOR) 5 mg tablet Take 1 tablet (5 mg total) by mouth nightly. 90 tablet 1 07/25/2023 09/17/2023 Discontinued Trulicity 3 MG/0.5ML solution pen-injector (3 sources) Start: 10-03-2023 inject 3 mg by subcutaneous injection every week Trulicity 3 MG/0.5ML solution pen-injector Inject 3 mg under the skin 1 (one) time per week 10/03/2023 Active Completed/Discontinued Medications Medication Drug Class(es) Dates Sig (Normalized) Sig (Original) Ipratropium-Albuter ol (Combivent) 18-103 mcg/actuation Aerosol (20 sources) Start: 03-17-2022 End: 03-17-2022 Ipratropium-Albutero l (Combivent) 18-103 mcg/actuation Aerosol Discontinued SPRAY INHALATION [...] d 500 MG PO Twice daily January 18, 2022 12:00am December 06, 2022 12:38pm take 1 tablet by zachary th every twelve hours at mealtime metFORMIN HCl - 500 MG Oral Tablet TAKE 1 TABLET EVERY 12 HOURS WITH FOOD. Quantity: 0 Refills: 0 Ordered: 20-Jan-2022 DO Active metroNIDAZOLE 250 mg oral tablet (17 sources) Nitroimidazole Antimicrobial Start: 01-18-2022 End: 03-17-2022 take 250 mg by mouth three times daily Metronidazole Discontinued 250 MG PO Three times daily January 18, 2022 12:00am March 17, 2022 9:30am tiZANidine 4 mg oral tablet (8 sources) Central alpha-2 Adrenergic Agonist Start: 07-24-2023 End: 09-17-2023 take 1 tablet by mouth once daily tiZANidine (ZANAFLEX) 4 mg tablet Indications: Thoracic myofascial strain, sequela Take 1 tablet (4 mg total) by mouth nightly. 30 tablet 0 07/24/2023 09/17/2023 Discontinued (Patient Stopped On Own) traMADol hydrochloride 50 mg oral tablet (7 sources) Opioid Agonist Start: 03-31-2022 End: 01-24-2023 take 1 tablet by mouth every six hours Tramadol (Ultram) 50 mg tablet Discontinued 50 MG PO Q6H 30 7 March 31, 2022 12:00am January 24, 2023 8:43am triamcinolone acetonide 40 mg/ml injectable suspension (20 sources) Corticosteroid Start: 09-21-2022 Kenalog-40 Aug, 60 mg Start: 11-22-2020 Kenalog -40 mg 24 May, 2021 60 mg Start: 05-17-2020 Kenalog -40 mg May, 60 mg Problems Active Problems Problem Classification Problem Date Documented Da te Episodic/Chronic Abdominal pain (4 sources) Unspecified abdominal pain; Translations: [UNSPECIFIED ABDOMINAL PAIN] Onset: 12-16-2021 Episodic Acute cerebrovascular disease (5 sources) Lacunar infarction; Translations: [Other cerebral infarction due to occlusion or stenosis of small artery] Onset: 12-17-2023 12-17-2023 Chronic Biliary tract disease (17 sources) Calculus of gallbladder without cholecystitis without obstruction; Translations: [Cholecystitis] Onset: 12-20-2021 Resolved: 09-18-2023 03-31-2022 Episodic Chronic obstructive pulmonary disease and bronchiectasis (20 sources) Chronic obstructive lung disease; Translations: [Chronic airway obstruction, not elsewhere classified] Onset: 07-24-2023 07-24-2023 Chronic Coronary atherosclerosis and other heart disease (20 sources) Coronary arteriosclerosis; Translations: [Atherosclerotic heart disease of [place] coronary artery with unspecified angina pectoris] Onset: 08-08-2023 08-08-2023 Chronic Diabetes mellitus without complication (20 sources) Diabetes mellitus; Translations: [Diabetes mellitus without mention of complication, type II or unspecified type, not stated as uncontrolled] Onset: 07-25-2023 07-25-2023 Chronic Disorders of lipid metabolism (20 sources) Mixed hyperlipidemia; Translations: [Mixed hyperlipidemia] Onset: 07-24-2023 07-24-2023 Chronic Esophageal disorders (3 sources) Gastro-esophageal reflux disease with esophagitis; Translations: [Gastroesophageal reflux disease with esophagitis without hemorrhage] 07-24-2023 Chronic Esophageal disorders (1 source) Esophageal disorders; Translations: [Gastro-esophageal reflux disease with esophagitis, without bleeding] Onset: 10-18-2023 Essential hypertension (2 sources) Essential hypertension; Translations: [Essential (primary) hypertension] Onset: 09-17-2023 09-17-2023 Chronic Other bone disease and musculoskeletal deformities (1 source) Avascular necrosis of bone; 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] 08-08-2023 Chronic Other bone disease and musculoskeletal deformities (1 source) Idiopathic aseptic necrosis of unspecified bone; 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] Onset: 08-08-2023 Chronic Other connective tissue disease (9 sources) Myofascial pain; Translations: [Myalgia, other site] Episodic Other connective tissue disease (3 sources) Myalgia, other site Episodic Other connective tissue disease (2 sources) Muscle pain; Translations: [Myalgia, unspecified site] 08-13-2023 Episodic Other connective tissue disease (2 sources) Other symptoms and signs involving the musculoskeletal system; Translations: [Other musculoskeletal symptoms referable to limbs] 07-09-2024 Episodic Other gastrointestinal disorders (1 source) Functional diarrhea; Translations: [Functional diarrhea] 08-23-2023 Episodic Other lower respiratory disease (5 sources) Dyspnea; Translations: [Other respiratory abnormalities] Episodic Other lower respiratory disease (1 source) Dyspnea on exertion; Translations: [Other forms of dyspnea] 09-17-2023 Episodic Other lower respiratory disease (1 source) Respiratory tract infection; Translations: [Other specified respiratory disorders] 05-26-2024 Episodic Other lower respiratory disease (1 source) Other specified respiratory disorders; Translations: [Other specified respiratory disorders] Onset: 05-26-2024 Episodic Other nervous system disorders (14 sources) Chronic pain; Translations: [Other chronic pain] Onset: 12-17-2023 12-17-2023 Chronic Other nervous system disorders (6 sources) Other chronic pain Chronic Other nervous system disorders (1 source) Other chronic pain; Translations: [Other chronic pain] Onset: 01-24-2023 Chronic Other nervous system disorders (5 sources) Impairment of balance; Translations: [Other abnormalities of gait and mobility] Onset: 12-17-2023 12-17-2023 Episodic Other nervous system disorders (5 sources) Ataxia; Translations: [Ataxia, unspecified] Onset: 12-17-2023 12-17-2023 Episodic Other non-traumatic joint disorders (2 sources) Pain in right shoulder; Translations: [Pain in joint, shoulder region] 08-12-2023 Episodic Other nutritional; endocrine; and metabolic disorders (1 source) Overweight in adulthood with body mass index of 25 or more but less than 30; Translations: [Body mass index (BMI) 26.0-26.9, adult] 07-24-2023 Episodic Peripheral and visceral atherosclerosis (12 sources) Disorder of aorta; Translations: [Atherosclerosis of aorta] Onset: 03-31-2024 04-08-2024 Chronic Residual codes; unclassified (5 sources) Body mass index 20-24 - normal; Translations: [Body Mass Index between 19-24, adult] Episodic Residual codes; unclassified (1 source) Tobacco user; Translations: [Tobacco use] 07-24-2023 Episodic Spondylosis; intervertebral disc disorders; other back problems (20 sources) Cervical spondylosis with myelopathy; Translations: [Other spondylosis with myelopathy, cervical region] Onset: 12-17-2023 Chronic Substance-related disorders (5 sources) Smoker; Translations: [Tobacco use disorder] Chronic Comment on above: 2 packs daily; Unclassified (2 sources) New Patient Onset: 07-24-2023 Unclassified (1 source) dicuss CT results Onset: 08-08-2023 Viral infection (1 source) COVID-19; Translations: [COVID-19] Onset: 08-27-2023 Past or Other Problems Problem Classification Problem Date Documented Da te Episodic/Chronic Diabetes mellitus without complication (4 sources) Glycosuria; Translations: [Hyperglycemia] Onset: 2 07-24-2023 Episodic Headache; including migraine (1 source) Headache Onset: Episodic Malaise and fatigue (3 sources) Fatigue; Translations: [Other fatigue] Onset: 4 07-24-2023 Episodic Mood disorders (20 sources) Mood disorders Onset: 4 Resolved: 4 07-24-2023 Mycoses (1 source) Candidal stomatitis; Translations: [Candidal stomatitis] Onset: 4 Episodic Noninfectious gastroenteritis (14 sources) Chronic diarrhea; Translations: [Noninfective gastroenteritis and colitis, unspecified] Onset: 4 09-23-2023 Episodic Other and unspecified benign neoplasm (11 sources) Polyp of sigmoid colon; Translations: [Polyp of colon] Onset: 4 10-03-2023 Episodic Other and unspecified benign neoplasm (1 source) Polyp of colon; Translations: [Polyp of colon] Onset: 4 Episodic Other fractures (3 sources) Compression fracture of lumbar spine; Translations: [Wedge compression fracture of unspecified lumbar vertebra, initial encounter for closed fracture] Onset: 4 12-17-2023 Episodic Other gastrointestinal disorders (2 sources) Diarrhea; Translations: [Diarrhea, unspecified] Onset: 4 09-18-2023 Episodic Other gastrointestinal disorders (1 source) Functional diarrhea; Translations: [Functional diarrhea] Onset: 4 Episodic Other gastrointestinal disorders (1 source) Diarrhea, unspecified; Translations: [Diarrhea, unspecified] Onset: 4 Episodic Other lower respiratory disease (1 source) Other forms of dyspnea; Translations: [Other forms of dyspnea] Onset: 4 Episodic Other lower respiratory disease (10 sources) Multiple nodules of lung; Translations: [Other nonspecific abnormal finding of lung field] Onset: 4 10-18-2023 Episodic Other lower respiratory disease (1 source) Cough Onset: 4 Episodic Other lower respiratory disease (1 source) Shortness of breath Onset: 4 Episodic Other nervous system disorders (1 source) Ataxia, unspecified; Translations: [Ataxia, unspecified] Onset: 3 Episodic Other screening for suspected conditions (not mental disorders or infectious disease) (9 sources) Electrocardiogram abnormal; Translations: [Nonspecific abnormal electrocardiogram [ECG] [EKG]] Onset: 4 07-24-2023 Episodic Other upper respiratory disease (1 source) Nasal congestion Onset: 4 Episodic Other upper respiratory infections (1 source) Acute upper respiratory infection, unspecified; Translations: [Acute upper respiratory infection, unspecified] Onset: 4 Episodic Pancreatic disorders (not diabetes) (2 sources) Exocrine pancreatic insufficiency; Translations: [Exocrine pancreatic insufficiency] Onset: 4 Episodic Residual codes; unclassified (1 source) Other [...] disc disorders; other back problems (20 sources) Dorsalgia, unspecified; Translations: [Sciatica] Onset: 4 Episodic Sprains and strains (2 sources) Strain of muscle at thorax level; Translations: [Strain of muscle and tendon of unspecified wall of thorax, sequela] Onset: 4 07-24-2023 Episodic Unclassified (20 sources) Onset: 4 Resolved: 4 07-24-2023 Results Test Name Value Interpretation Reference Range Facility POCT Influenza A/Influenza B /SARS-COV-2 [facility] 05-26-2024 External Poct Influenza A Antigen Negative [facility] External Poct Influenza B Antigen Negative [facility] SARS-CoV-2 (COVID-19) Ag IA.rapid Ql (Resp) Negative [facility] POCT Hemoglobin A1con 2023 HbA1c (Bld) [Mass fraction] 6.9 % 4 - 7 % [facility] ISTAT XRay CREon 01-21-2024 ISTAT GFR > 60.0 Normal [facility] Comment on above: Result Comment: PERF ORMED BY: [place] [address] PATHOLOGIST W[employer]CKING MECHANIC JUSTINA HOUSE M.D. Performed By: #### I SCRE #### [address] No Panel InformationOrdered By: Renata Moran on 01-21-2024 Bedside Estimated GFR (eGFR) > 60.0 [facility] Whole blood creatinine measu rementOrdered By: Renata Moran on 01-21-2024 Creatinine [Mass/Vol] 0.8 mg/dL Normal 0.6-1.3 [facility] Comment on above: ER/ESD physician is notified/shown all ISTAT results.Critical values may be confirmed by laboratory testing ifdeemed necessary by ER attending doctor. Result Comment: ER/E [place] physician is notified/shown all ISTAT results. Critical values may be confirmed by laboratory testing if deemed necessary by ER attending doctor. Performed By: #### I SCRE #### [facility] [address] [id number] [facility] XR pre/post mri xrayon 01-20 XR pre/post mri xray [facility] [address] [place] [address] [place], [place] [id number] MRI Report Signed Patient: Keely Castañeda MR#: [id number] 4 : 1955 Acct:[id number] Age/Sex: 68 / F ADM Date: 01/21/24 Loc: MR Room: Type: [facility] Attending Dr: Renata ARAGON Copies to: MAHESH Argueta Ordering Provider: MAHESH Argueta Date of Service: 01/21/24 MR/MR cervical spine wo/w con: R27.0 ([id number]) XR/XR pre/post mri xray: R27.0 MR cervical spine wo/w con, XR pre/post mri xray 01/21/2024 7:54 AM SIGNS AND SYMPTOMS: Posterior left shoulder/scapular pain with intermittent numbness in right fingers PROTOCOL: Multiplanar multisequence MR images of the cervical spine were obtained with and without IV contrast. Lateral and bilateral oblique radiographs of the cervical spine were obtained. CONTRAST: 12 mL of intravenous ProHance COMPARISON: 04/08/2020 FINDINGS: Radiographs of the cervical spine: The bones are in anatomical. The bony heights and intervertebral discs. There is no fracture or subluxation. No significant neural foraminal stenosis. Cervical spine: The bones of the cervical spine are in anatomic alignment. There is preservation of vertebral body heights and intervertebral disc spaces. The marrow signal is within normal limits. The cord is normal in signal. No epidural or paraspinous fluid collection is appreciated. The visualized paraspinous soft tissues are within normal limits. The prevertebral soft tissues are within normal limits. At C2-C3: There is a normal disc, central canal, and neural foramen. At C3-C4: There is left-sided uncovertebral joint spurring with facet hypertrophy contributing to mild left neural foraminal narrowing. No spinal canal narrowing. At C4-C5: There is a normal disc, central canal, and neural foramen. At C5-C6: There is a normal disc, central canal, and neural foramen. At C6-C7: There is a normal disc, central canal, and neural foramen. At C7-T1: There is a normal disc, central canal, and neural foramen. MR/MR cervical spine wo/w con IMPRESSION: No fracture or dislocation. No cord compression or cord signal abnormality. At C3-C4: There is left-sided uncovertebral joint spurring with facet hypertrophy contributing to mild left neural foraminal narrowing. No spinal canal narrowing. No abnormal postcontrast enhancement. Impression dictated by: Camden Rm M.D.01/21/2024 12:40 PM Dictation Location: [place] [address] Transcribed By: MARCELINA 01/21/24 1240 Dictated By: Camden Rm II, MD 01/21/24 1140 Signed By: 01/21/24 1240 Normal [facility] Reference Lab Test IDon - PANCREAT ELASTASE ST See Below Normal [facility] Comment on above: Result Comment: NOTE TEST RESULT FLAG UNIT REF.RANGE -------- Elastase-1 Concentration >800 ug/g >=200 Interpretation: <100 ug/g: Severe Exocrine Pancreatic Insufficiency 100-199 ug/g: Mild to Moderate Exocrine Pancreatic Insufficiency >=200 ug/g: Normal Elastase Interpretation Normal Normal Test Performed By: [employer] [address] [place] [address] Invoice Checker: Roger Adams III, M.D. IA #[id number] Performed By: #### 3 0896-5 #### [facility] ([id number]) [address] [place] [address] Surgical Pathologyon 024 Surgical Pathology Normal [facility] Comment on above: Result Comment: [facility] [address] [place] [address] Surgical Pathology Consultation Patient Name:KEELY CASTAÑEDA:1955 (Age: 68)Gender:FTaken:4Reported:10/05/2023hysician(s):Vanesa Tomas MD ([phone])Copy To: Rec. #:[id number]: #[id number] Final Pathologic Diagnosis 1. Colon at 62 [...] Out ao/10/05/2023derek Low MD Interpretation performed at [facility], [address] [place] [address], License number: [id number]. Clinical History Chronic diarrhea. Gross Description 1. Received in formalin labeled, MADDY, 60 cm is a pale-leonardo delicate soft tissue fragment, 0.3 cm in greatest dimension. The specimens are filtered and submitted in a single cassette. (1, ns, [id number], m8) TB 2. Received in formalin labeled, MADDY, 50 cm are 8 pale-leonardo delicate and friable soft tissue fragments, 0.1-0.3 cm in greatest dimension. The specimens are filtered and submitted in a single cassette. (1, ns, [id number], m8) TB 3. Received in formalin labeled, MADDY, sigmoid BX are 8 pale-leonardo delicate soft tissue fragments, 0.1-0.3 cm in greatest dimension. The specimens are filtered and submitted in a single cassette. (1, ns, [id number], m8) TB 4. Received in formalin labeled, MADDY, 45 cm are 6 pale-leonardo delicate soft tissue fragments, 0.1-0.4 cm in greatest dimension. The specimens are filtered and submitted in a single cassette. (1, ns, [id number], m8) TB 5. Received in formalin labeled, MADDY, 15 cm is a leonardo to brown delicate soft tissue fragment, 1 cm in greatest dimension. The resection margin is inked black, and the polyp is serially sectioned and submitted entirely in a single cassette. (1, ns, [id number], m8) TB tgb/10/04/2023NSK Specimen(s) Received 1: Colon polyp 60cm 2: Colon polyp 50cm 3: Sigmoid biopsy 4: Colon polyp 45cm 5: Colon polyp 15cm Fee Codes(s): 1; 71411 2; 51214 3; 02266 4; 64932 5; 98513 POCT EKGOrdered By: Yael William on 09-17-2023 [facility] MICROALBUMIN - ALBUMIN:CREAT ININE URINE RATIOon 08-23-2023 ALB/CREAT RATIO 7.5 mg/g creat Normal 0.0-30.[address] [facility] Comment on above: Performed By: #### M ALBU #### [facility] ([id number]) [address], [address] [place] [address] Albumin DL <= 20 mg/L (U) [Mass/Vol] 1.0 mg/dL Normal 0.0-1.9 [facility] Comment on above: Performed By: #### M ALBU #### [facility] ([id number]) [address], [address] [place] [address] URINE CREAT 133.40 mg/dL Normal [facility] Comment on above: Performed By: #### M ALBU #### [facility] ([id number]) [address], [address] [place] [address] Microalbumin - Albumin: Crea tinine Urine Ratioon 08-23-2023 Albumin DL <= 20 mg/L (U) [Mass/Vol] 1.0 mg/dL 0.0 - 1.9 mg/dL [facility] Albumin/Creatinine DL <= 1.0 mg/L (U) [Ratio] 7.5 [facility] Creatinine (U) [Mass/Vol] 133.40 mg/dL [facility] COMPREHENSIVE METABOLIC PANE Pete 07-24-2023 Albumin [Mass/Vol] 4.1 g/dL Normal 3.2-5.3 [facility] Comment on above: Performed By: #### Beverley MORENO, 16163-5, THYR #### [facility] ([id number]) [address], [address] [place] [address] ALP [Catalytic activity/Vol] 115 U/L Normal 39-130 [facility] Comment on above: Performed By: #### Beverley MORENO 69887-9, THYR #### [facility] ([id number]) [address], [address] [place] [address] ALT [Catalytic activity/Vol] 24 U/L Normal 0-31 [facility] Comment on above: Performed By: #### Beverley MORENO, 64262-5, THYR #### [facility] ([id number]) [address], [address] [place] [address] Anion gap [Moles/Vol] 8 mmol/L Normal 5-15 [facility] Comment on above: Performed By: #### Beverley MORENO, 32866-3, THYR #### [facility] ([id number]) [address], [address] [place] [address] AST [Catalytic activity/Vol] 19 U/L Normal 0-41 [facility] Comment on above: Performed By: #### Beverley MORENO, 64844-1, THYR #### [facility] ([id number]) [address], [address] [place] [address] Bilirubin [Mass/Vol] 0.3 mg/dL Normal 0.3-1.2 [facility] Comment on above: Performed By: #### C JOSH, 95631-7, THYR #### [facility] ([id number]) [address], [address] [place] [address] Calcium [Mass/Vol] 9.9 mg/dL Normal 8.5-10.5 [facility] Comment on above: Performed By: #### C JOSH, 25572-5, THYR #### [facility] ([id number]) [address], [address] [place] [address] Chloride [Moles/Vol] 99 mmol/L Normal 98-109 [facility] Comment on above: Performed By: #### Beverley MORENO, 00733-6, THYR #### [facility] ([id number]) [address], [address] [place] [address] CO2 [Moles/Vol] 30 mmol/L Normal 22-32 [facility] Comment on above: Performed By: #### Beverley MORENO, 99870-9, THYR #### [facility] ([id number]) [address], [address] [place] [address] Creatinine [Mass/Vol] 0.77 mg/dL Normal 0.40-1.00 [facility] Comment on above: Result Comment: METH OD TRACEABLE TO IDMS STANDARD Performed By: #### C JOSH, 21180-0, THYR #### [facility] ([id number]) [address], [facility] [address] [place] [address] GFR/1.73 sq M.predicted among non-blacks MDRD (S/P/Bld) [Vol rate/Area] 85 mL/min/{1.73_m2} Normal >59 [facility] Comment on above: Result Comment: Reported eGFR is based on the CKD-EPI 2020 equation that does not use a race coefficient. Performed By: #### C JOSH, 60950-6, THYR #### [facility] ([id number]) [address], [address] [place] [address] Glucose [Mass/Vol] 263 mg/dL High 65-99 [facility] Comment on above: Performed By: #### Beverley MORENO, 30344-1, THYR #### [facility] ([id number]) [address], [address] [place] [address] Potassium [Moles/Vol] 4.3 mmol/L Normal 3.5-5.0 [facility] Comment on above: Performed By: #### Beverley MORENO, 70931-0, THYR #### [facility] ([id number]) [address], [address] [place] [address] Protein [Mass/Vol] 6.8 g/dL Normal 6.0-8.0 [facility] Comment on above: Performed By: #### Beverley MORENO, 10136-2, THYR #### [facility] ([id number]) [address], [address] [place] [address] Sodium [Moles/Vol] 137 mmol/L Normal 134-146 [facility] Comment on above: Performed By: #### Beverley MORENO, 52284-1, THYR #### [facility] ([id number]) [address], [address] [place] [address] Urea nitrogen [Mass/Vol] 13 mg/dL Normal 5-27 [facility] Comment on above: Performed By: #### Beverley MORENO, 82316-6, THYR #### [facility] ([id number]) [address], [address] [place] [address] Comprehensive metabolic pane pete 07-24-2023 Albumin [Mass/Vol] 4.1 g/dL 3.2 - 5.3 g/dL [facility] ALP [Catalytic activity/Vol] 115 U/L 39 - 130 U/L [facility] ALT No additional P-5'-P [Catalytic activity/Vol] 24 U/L 0 - 31 U/L [facility] Anion gap [Moles/Vol] 8 mmol/L 5 - 15 mmol/L [facility] AST [Catalytic activity/Vol] 19 U/L 0 - 41 U/L [facility] Bilirubin [Mass/Vol] 0.3 mg/dL 0.3 - 1 .2 mg/dL [facility] Calcium [Mass/Vol] 9.9 mg/dL 8.5 - 10. 5 mg/dL [facility] Chloride [Moles/Vol] 99 mmol/L 98 - 10 9 mmol/L [facility] CO2 [Moles/Vol] 30 mmol/L 22 - 32 mmol/L [facility] Creatinine [Mass/Vol] 0.77 mg/dL 0.40 - 1.00 mg/dL [facility] Comment on above: METHOD TRACEABLE TO [facility] STANDARD eGFR (CKD-EPI)non-race dependent 85 - PINF [facility] Comment on above: Reported eGFR is based on the CKD-EPI 2020 equation that does not use a race coefficient. Glucose [Mass/Vol] 263 mg/dL High 65 - 99 mg/dL [facility] Potassium [Moles/Vol] 4.3 mmol/L 3.5 - 5.0 mmol/L [facility] Protein [Mass/Vol] 6.8 g/dL 6.0 - 8.0 g/dL [facility] Sodium [Moles/Vol] 137 mmol/L 134 - 146 mmol/L [facility] Urea nitrogen [Mass/Vol] 13 mg/dL 5 - 27 mg/dL [facility] HGB A1C (GLYCO-HGB)on 2023 Glucose [Mass/Vol] 235 mg/dL Normal [facility] Comment on above: Performed By: #### [place], [address]-9, THYR #### [facility] ([id number]) [address] [facility] [place] [address] HbA1c (Bld) [Mass fraction] 9.8 % High 4.4-5.6 [facility] Comment on above: Result Comment: NOTE ADA Guidelines Result HgbA1c Normal : less than 5.7 % Prediabetes : 5.7 % to 6.4 % Diabetes : > 6.4 % Use with caution in patients with abnormal hemoglobin variants as the half-life of red blood cells and in vivo glycation rates are affected. Performed By: #### C , 56104-3, THYR #### [facility] ([id number]) [address] [place] [address], [address] [place] [id number] Hemoglobin A1con 07-24-2023 Average glucose Estimated from glycated hemoglobin (Bld) [Mass/Vol] 235 mg/dL [facility] HbA1c (Bld) [Mass fraction] 9.8 % High 4.4 - 5.6 % [facility] Comment on above: NOTE ADA Guidelines Result HgbA1c Normal : less than 5.7 % Prediabetes : 5.7 % to 6.4 % Diabetes : > 6.4 % Use with caution in patients with abnormal hemoglobin variants as the half-life of red blood cells and in vivo glycation rates are affected. Interpretation and review of laboratory results Abnormal [facility] Lipid 1996 panelon Cholesterol [Mass/Vol] 180 mg/dL 150 - 200 mg/dL [facility] Cholesterol in HDL [Mass/Vol] 31 mg/dL Low 39 - PINF mg/dL [facility] Comment on above: HDL <40 mg/dL - High Risk HDL > or = 40mg/dL- Desirable HDL >60 mg/dL - Negative Risk Cholesterol in LDL [Mass/Vol] 97 mg/dL NINF - 130 mg/dL [facility] Comment on above: LDL <100 mg/dL - Desirable LDL >160 mg/dL - High Risk Cholesterol in VLDL [Mass/Vol] 52 mg/dL High 0 - 30 mg/dL [facility] Cholesterol.total/Kelsie sterol in HDL [Mass ratio] 5.8 {ratio} High 1.0 - 5.0 [facility] Triglyceride [Mass/Vol] 262 mg/dL High 27 - 150 mg/dL [facility] Cholesterol [Mass/Vol] 180 mg/dL Normal 150-200 [facility] Comment on above: Performed By: #### Beverley MORENO, 48884-1, THYR #### [facility] ([id number]) [address], [address] [place] [address] Cholesterol in HDL [Mass/Vol] 31 mg/dL Low >39 [facility] Comment on above: Result Comment: HDL <40 mg/dL - High Risk HDL > or = 40mg/dL- Desirable HDL >60 mg/dL - Negative Risk Performed By: #### Beverley MORENO, 69447-7, THYR #### [facility] ([id number]) [address], [address] [place] [address] Cholesterol in LDL [Mass/Vol] 97 mg/dL Normal <130 [facility] Comment on above: Result Comment: LDL <100 mg/dL - Desirable LDL >160 mg/dL - High Risk Performed By: #### Beverley MORENO, 73762-4, THYR #### [facility] ([id number]) [address], [address] [place] [address] Cholesterol in VLDL [Mass/Vol] 52 mg/dL High 0-30 [facility] Comment on above: Performed By: #### C JOSH, 28911-0, THYR #### [facility] ([id number]) [address], [address] [place] [address] CHOLESTEROL:HDL 5.8 High 1.0-5.0 [facility] Comment on above: Performed By: #### Beverley MORENO, 23129-0, THYR #### [facility] ([id number]) [address], [address] [place] [address] Triglyceride [Mass/Vol] 262 mg/dL High 27-150 [facility] Comment on above: Performed By: #### Beverley MORENO, 16320-9, THYR #### [facility] ([id number]) [address] [place] [address] No Panel Informationon 07-24 Interpretation and review of laboratory results Abnormal [facility] THYROID PROFILEon 07-24-2023 Free T4 [Mass/Vol] 0.68 ng/dL Normal 0.61-1.60 [facility] Comment on above: Performed By: #### Beverley MORENO, 86116-4, THYR #### [facility] ([id number]) [address] [place] [address] TSH 1.93 uIU/mL Normal 0.49-4.67 [facility] Comment on above: Performed By: #### Beverley MORENO, 18863-8, THYR #### [facility] ([id number]) [address], [address] [place] [address] Thyroid profile includes TSH FT4on 07-24-2023 Free T4 [Mass/Vol] 0.68 ng/dL 0.61 - 1. 60 ng/dL [facility] TSH Qn 1.93 m[IU]/L [facility] MR head/brain wo/w conon MR head/brain wo/w con [facility] [address] [place] [address] MRI Report Signed Patient: Keely Castañeda MR#: [id number] 4 : 1955 Acct:[id number] Age/Sex: 68 / F ADM Date: 05/17/23 Loc: MR Room: Type: [facility] Attending Dr: Renata ARAGON Copies to: MAHESH [...] Camden Rm M.D.05/18/2023 11:21 AM Dictation Location: [place] [address] Transcribed By: MARCELINA 05/18/23 1121 Dictated By: Camden Rm II, MD 05/18/23 1115 Signed By: 05/18/23 1121 Normal [facility] XR pre/post mri xrayon 05-18 XR pre/post mri xray [facility] [address] [place] [address] MRI Report Signed Patient: Keely Castañeda MR#: [id number] 4 : 1955 Acct:[id number] Age/Sex: 68 / F ADM Date: 05/17/23 Loc: MR Room: Type: [facility] Attending Dr: Renata ARAGON Copies to: MAHESH Argueta Ordering Provider: MAHESH Argueta Date of Service: 05/17/23 MR/MR lumbar spine wo/w con: R26.89 ([id number]) XR/XR pre/post mri xray: R27.0 MR lumbar [...] Camden Rm M.D.05/18/2023 11:35 AM Dictation Location: [place] [address] Transcribed By: [facility] 05/18/23 1135 Dictated By: Camden Rm II, MD 05/18/23 1122 Signed By: 05/18/23 1135 Normal [facility] ISTAT XRay CREon 05-17-2023 ISTAT GFR > 60.0 Normal [facility] Comment on above: Result Comment: PERF ORMED BY: [place] [address] PATHOLOGIST W[employer]CK[employer] MECHANIC JUSTINA HOUSE M.D. Performed By: #### I SCRE #### [place] [id number] [facility] No Panel InformationOrdered By: Renata Moran on 05-17-2023 Bedside Estimated GFR (eGFR) > 60.0 [facility] Whole blood creatinine measu rementOrdered By: Renata Moran on 05-17-2023 Creatinine [Mass/Vol] 0.9 mg/dL Normal 0.6-1.3 [facility] Comment on above: ER/ESD physician is notified/shown all ISTAT results.Critical values may be confirmed by laboratory testing ifdeemed necessary by ER attending doctor. Result Comment: ER/E SD physician is notified/shown all ISTAT results. Critical values may be confirmed by laboratory testing if deemed necessary by ER attending doctor. Performed By: #### I SCRE #### [place] [id number] [facility] Office Visit (Cardiology)on 04-11-2022 Follow-up visit Diagnoses/Problems [...] we can help. You may also call 3-403-XFMO-NOW for free resources and assistance.; Status:Complete - Retrospective Authorization; Done: [id number] Patient Instructions Please bring all medicines, vitamins, and herbal supplements with you when you come to the office. Prescriptions will not be filled unless you are compliant with your follow up appointments or have a follow up appointment scheduled as per instruction of your physician. Refills should be requested at the time of your visit. Follow up as needed only Chief Complaint KEELY CASTAÑEDA is being seen for a 3 month [...] Recorded: 11Apr2022 03:35PM Heart Rate66, R Radial Roobfosk890, RUE, Sitting Elinrapdq25, RUE, Sitting Height5 ft 2 in Oagrtb411 lb BMI Tebzafnykb58.13 kg/m2 BSA Calculated1.54 Tobacco Usea) Yes Patient [...] Apr 11 2022 7:17PM EST (Author) Normal [employer] Tobacco Screening.on 022 Fall risk assessment a) No falls within the last year [facility] [address] DO Work Phone: Tobacco use status CP a) Yes [facility] [address] DO Work Phone: Tobacco Screening. Yes [facility] [address] DO Work Phone: Direct bilirubin measurement Ordered By: Donny Jacobson on 03-31-2022 Bilirubin.direct [Mass/Vol] 0.2 mg/dL 0.0-0.4 [facility] Glucose Glucometer (BldC) [M ass/Vol]Ordered By: Donny Jacobson on 03-31-2022 Glucose [Mass/Vol] 118 mg/dL [facility] Comment on above: Random Glucose Refer ence Range is dependent on time and content of last meal. Glucose of more than 200 mg/dL in a nonstressed, ambulatory subject supports the diagnosis of Diabetes Mellitus. Laboratory - Chemistry and C hemistry - challengeOrdered By: Donny Jacobson on 03-31-2022 Lipase [Catalytic activity/Vol] 32.0 U/L 22-51 [facility] No Panel InformationOrdered By: Donny Jacobson on 03-31-2022 Bedside Glucose Comment Glu2: cleaned meter [facility] Serum or plasma alkaline delmer sphatase measurement (enzymatic activity/volume)Ordered By: Donny Jacobson on 03-31-2022 ALP [Catalytic activity/Vol] 90 U/L 32-92 [facility] [facility] Serum or plasma amylase augustin urement (enzymatic activity/volume)Ordered By: Donny Jacobson on 03-31-2022 Amylase [Catalytic activity/Vol] 44 U/L 28-100 [facility] Serum or plasma aspartate am inotransferase measurement (enzymatic activity/volume)Ordered By: Donny Jacobson on 03-31-2022 AST [Catalytic activity/Vol] 18 U/L 10-42 [facility] Serum or plasma non-glucuron idated bilirubin measurement (mass/volume)Ordered By: Donny Jacobson on 03-31-2022 Bilirubin.indirect [Mass/Vol] 0.5 mg/dL [facility] Serum or plasma total biliru bin measurement (mass/volume)Ordered By: Donny Jacobson on 03-31-2022 Bilirubin [Mass/Vol] 0.7 mg/dL 0.3-1.2 [facility] COVID-19 Positive/NegativeOr dered By: Donny Jacobson on 03-29-2022 SARS-CoV-2 (COVID-19) N gene CRISTOPHER+probe Ql (Resp) Negative Negative [facility] Comment on above: Testing for SARS-CoV -2 by RT-PCRThis test was developed and its performance characteristics determined by [employer] and validated at the [facility]. This test has not been FDA [...] 03-17-2022 Basophils (Bld) [#/Vol] 0.1 10*3/uL 0.0-0.2 [facility] Basophils/100 WBC Auto (Bld) Ordered By: Donny Jacobson on 03-17-2022 Basophils/100 WBC (Bld) 1.0 % . [facility] Blood hemoglobin measurement (mass/volume)Ordered By: Donny Jacobson on 03-17-2022 Hemoglobin (Bld) [Mass/Vol] 15.1 g/dL 11.8-15.4 [facility] Blood leukocytes automated c ount (number/volume)Ordered By: Donny Jacobson on 03-17-2022 WBC (Bld) [#/Vol] 5.5 10*3/uL 4.5-11.0 [facility] Creatinine and Glomerular fi ltration rate.predicted panel (S/P/Bld)Ordered By: Donny Jacobson on 03-17-2022 Creatinine [Mass/Vol] 0.57 mg/dL 0.44-1.03 [facility] Eosinophils Auto (Bld) [#/Vo l]Ordered By: Donny Jacobson on 03-17-2022 Eosinophils (Bld) [#/Vol] 0.3 10*3/uL 0.0-0.45 [facility] Eosinophils/100 WBC Auto (Bl d)Ordered By: Donny Jacobson on 03-17-2022 Eosinophils/100 WBC (Bld) 4.9 % . [facility] Erythrocyte distribution wid th Auto (RBC) [Ratio]Ordered By: Donny Jacobson on 03-17-2022 Erythrocyte distribution width (RBC) [Ratio] 13.6 % 11.9-15.3 [facility] Estimated glomerular filtrat ion rate (GFR) non- AmericanOrdered By: Donny Jacobson on 03-17-2022 GFR/1.73 sq M.predicted among non-blacks MDRD (S/P/Bld) [Vol rate/Area] > 60 mL/Min [facility] Hematocrit Auto (Bld) [Volum e fraction]Ordered By: Donny Jacobson on 03-17-2022 Hematocrit (Bld) [Volume fraction] 44.5 % 34.0-46.4 [facility] Laboratory - Hematology and Cell countsOrdered By: Donny Jacobson on 03-17-2022 Nucleated RBC/100 WBC (Bld) [Ratio] 0.0 % 0-0.5 [facility] Lymphocytes Auto (Bld) [#/Vo l]Ordered By: Donny Jacobson on 03-17-2022 Lymphocytes (Bld) [#/Vol] 2.2 10*3/uL 1.00-4.8 [facility] Lymphocytes/100 WBC Auto (Bl d)Ordered By: Donny Jacobson on 03-17-2022 Lymphocytes/100 WBC (Bld) 40.1 % . [facility] MCH Auto (RBC) [Entitic mass ]Ordered By: Donny Jacobson on 03-17-2022 MCH (RBC) [Entitic mass] 31.2 pg 24.7-34.3 [facility] MCHC Auto (RBC) [Mass/Vol]Or dered By: Donny Jacobson on 03-17-2022 MCHC (RBC) [Mass/Vol] 33.9 g/dL 32.0-35.0 [facility] MCV Auto (RBC) [Entitic vol] Ordered By: Donny Jacobson on 03-17-2022 MCV (RBC) [Entitic vol] 92.0 fL 80-100 [facility] Monocytes Auto (Bld) [#/Vol] Ordered By: Donny Jacobson on 03-17-2022 Monocytes (Bld) [#/Vol] 0.4 10*3/uL 0.0-0.8 [facility] Monocytes/100 WBC Auto (Bld) Ordered By: Donny Jacobson on 03-17-2022 Monocytes/100 WBC (Bld) 8.1 % . [facility] Neutrophils Auto (Bld) [#/Vo l]Ordered By: Donny Jacobson on 03-17-2022 Neutrophils (Bld) [#/Vol] 2.5 10*3/uL 1.8-7.7 [facility] Neutrophils/100 WBC Auto (Bl d)Ordered By: Donny Jacobson on 03-17-2022 Neutrophils/100 WBC (Bld) 45.9 % . [facility] No Panel InformationOrdered By: Donny Jacobson on 03-17-2022 Estimated GFR () > 60 mL/Min [facility] Comment on above: GFR estimated refere nce range: According to KDOQI guidelines, <60 ml/min/1.73m2 is sufficient to diagnose a patient with chronic kidney disease. Pharmacy Creatinine Clearance (Chem N/A [facility] Platelet mean volume Auto (B ld) [Entitic vol]Ordered By: Donny Jacobson on 03-17-2022 Platelet mean volume (Bld) [Entitic vol] 9.4 fL 6.3-10.7 [facility] Platelets Auto (Bld) [#/Vol] Ordered By: Donny Jacobson on 03-17-2022 Platelets (Bld) [#/Vol] 200 10*3/uL 150-450 [facility] RBC Auto (Bld) [#/Vol]Ordere d By: Donny Jacobson on 03-17-2022 RBC (Bld) [#/Vol] 4.84 10*6/uL 3.60-5.00 [facility] [place] Serum or plasma anion gap de terminationOrdered By: Donny Jacobson on 03-17-2022 Anion gap [Moles/Vol] 11.1 mmol/L 6.0-15.0 [facility] Serum or plasma calcium augustin urement (mass/volume)Ordered By: Donny Jacobson on 03-17-2022 Calcium [Mass/Vol] 9.2 mg/dL 8.2-10.2 [facility] Serum or plasma chloride sudha surement (moles/volume)Ordered By: Donny Jacobson on 03-17-2022 Chloride [Moles/Vol] 101 mmol/L 95-114 [facility] Serum or plasma glucose augustin urement (mass/volume)Ordered By: Donny Jacobson on 03-17-2022 Glucose [Mass/Vol] 187 mg/dL 70-100 [facility] Comment on above: ADA recommended refe rence [...] on 03-17-2022 Potassium [Moles/Vol] 3.5 mmol/L 3.5-5.1 [facility] Serum or plasma sodium measu rement (moles/volume)Ordered By: Donny Jacobson on 03-17-2022 Sodium [Moles/Vol] 136 mmol/L 136-146 [facility] Serum or plasma total carbon dioxide measurement (moles/volume)Ordered By: Donny Jacobson on 03-17-2022 CO2 [Moles/Vol] 27.4 mmol/L 22.0-30.0 [facility] Serum or plasma urea nitroge n measurement (mass/volume)Ordered By: Donny Jacobson on 03-17-2022 Urea nitrogen [Mass/Vol] 8 mg/dL 9-23 [facility] No Panel Informationon 03-02 Normal [facility] [place] [address] DO Work Phone: No Panel Informationon 02-24 [facility] [place] [facility] DO Work Phone: Office Visit [...] Status:Hold For - Scheduling,Retrospecti ve Authorization; Requested for:[id number]; Radiologist to Determine Optimal Study : Y What are the patient's signs and symptoms? : dyspnea - abn ekg - poc Preop cardiovascular exam IO EKG Electrocardiogram- 12 Lead; Status:Complete; Done: [id number] SocHx: Current smoker You need to stop smoking. Though it is not easy, more than half of all adult smokers have quit. We encourage you to write down all the reasons you should quit smoking and set a quit date for yourself. Ask us how we can help. You may also call 1-272-QNIOBackTypeNOW for free resources and assistance.; Status:Complete - Retrospective Authorization; Done: [id number] Tobacco Use Screening; Status:Complete; Done: [id number] Patient Instructions Please bring all medicines, vitamins, [...] for and in the presence of, Dr. Yakeiln Crowe MD Chief Complaint KEELY CASTAÑEDA is being seen for a consultation for [...] negative for complaint. Vitals Vital Signs Recorded: [id number] 09:26AMRecorded: [id number] 09:25AM Umfupxbm526, LUE, Nujypvy462, RUE, Sitting Msefubnzx70, LUE, Wrwcoti06, RUE, Sitting Heart Rate66, Apical Height5 ft 2 in Torvju701 lb BMI Vnhjpxfvym92.68 kg/m2 BSA Calculated1.56 Tobacco Usea) Yes Patient encouraged to stop using tobacco productsYes PHQ-2 #1. Over the last 2 weeks have you felt down, depressed or hopele (more content not included)... Normal [facility] Tobacco Screening.on 022 Adult depression screening assessment No -[facility] [place] [facility] [place] Work Phone: Fall risk assessment c) Not medically indicated [facility] [address] DO Work Phone: Tobacco use status CPHS a) Yes M P[facility] [place] [address] [place] Work Phone: Tobacco Screening. Yes MP[facility] [place] [address] DO Work Phone: Basophils Auto (Bld) [#/Vol] Ordered By: Donny Jacobson on 01-18-2022 Basophils (Bld) [#/Vol] 0.0 10*3/uL 0.0-0.2 [facility] Basophils/100 WBC Auto (Bld) Ordered By: Donny Jacobson on 01-18-2022 Basophils/100 WBC (Bld) 0.6 % . [facility] Blood hemoglobin measurement (mass/volume)Ordered By: Donny Jacobson on 01-18-2022 Hemoglobin (Bld) [Mass/Vol] 15.3 g/dL 11.8-15.4 [facility] Blood leukocytes automated c ount (number/volume)Ordered By: Donny Jacobson on 01-18-2022 WBC (Bld) [#/Vol] 6.0 10*3/uL 4.5-11.0 [facility] Creatinine and Glomerular fi ltration rate.predicted panel (S/P/Bld)Ordered By: Donny Jacobson on 01-18-2022 Creatinine [Mass/Vol] 0.55 mg/dL 0.44-1.03 [facility] Eosinophils Auto (Bld) [#/Vo l]Ordered By: Donny Jacobson on 01-18-2022 Eosinophils (Bld) [#/Vol] 0.2 10*3/uL 0.0-0.45 [facility] Eosinophils/100 WBC Auto (Bl d)Ordered By: Donny Jacobson on 01-18-2022 Eosinophils/100 WBC (Bld) 2.7 % . [facility] Erythrocyte distribution wid th Auto (RBC) [Ratio]Ordered By: Donny Jacobson on 01-18-2022 Erythrocyte distribution width (RBC) [Ratio] 12.8 % 11.9-15.3 [facility] Estimated glomerular filtrat ion rate (GFR) non- AmericanOrdered By: Donny Jacobson on 01-18-2022 GFR/1.73 sq M.predicted among non-blacks MDRD (S/P/Bld) [Vol rate/Area] > 60 mL/Min [facility] Hematocrit Auto (Bld) [Volum e fraction]Ordered By: Donny Jacobson on 01-18-2022 Hematocrit (Bld) [Volume fraction] 44.8 % 34.0-46.4 [facility] - Hematology and Cell countsOrdered By: Donny Jacobson on 01-18-2022 Nucleated RBC/100 WBC (Bld) [Ratio] 0.1 % 0-0.5 [facility] Lymphocytes Auto (Bld) [#/Vo l]Ordered By: Donny Jacobson on 01-18-2022 Lymphocytes (Bld) [#/Vol] 2.3 10*3/uL 1.00-4.8 [facility] Lymphocytes/100 WBC Auto (Bl d)Ordered By: Donny Jacobson on 01-18-2022 Lymphocytes/100 WBC (Bld) 38.2 % . [facility] MCH Auto (RBC) [Entitic mass ]Ordered By: Donny Jacobson on 01-18-2022 MCH (RBC) [Entitic mass] 31.1 pg 24.7-34.3 [facility] MCHC Auto (RBC) [Mass/Vol]Or dered By: Donny Jacobson on 01-18-2022 MCHC (RBC) [Mass/Vol] 34.1 g/dL 32.0-35.0 [facility] MCV Auto (RBC) [Entitic vol] Ordered By: Donny Jacobson on 01-18-2022 MCV (RBC) [Entitic vol] 91.1 fL 80-100 [facility] Monocytes Auto (Bld) [#/Vol] Ordered By: Donny Jacobson on 01-18-2022 Monocytes (Bld) [#/Vol] 0.6 10*3/uL 0.0-0.8 [facility] Monocytes/100 WBC Auto (Bld) Ordered By: Donny Jacobson on 01-18-2022 Monocytes/100 WBC (Bld) 9.9 % . [facility] Neutrophils Auto (Bld) [#/Vo l]Ordered By: Donny Jacobson on 01-18-2022 Neutrophils (Bld) [#/Vol] 2.9 10*3/uL 1.8-7.7 [facility] Neutrophils/100 WBC Auto (Bl d)Ordered By: Donny Jacobson on 01-18-2022 Neutrophils/100 WBC (Bld) 48.6 % . [facility] No Panel InformationOrdered By: Donny Jacobson on 01-18-2022 Estimated GFR () > 60 mL/Min [facility] Comment on above: GFR estimated refere nce range: According to KDOQI guidelines, <60 ml/min/1.73m2 is sufficient to diagnose a patient with chronic kidney disease. Pharmacy Creatinine Clearance (Chem N/A [facility] Platelet mean volume Auto (B ld) [Entitic vol]Ordered By: Donny Jacobson on 01-18-2022 Platelet mean volume (Bld) [Entitic vol] 9.4 fL 6.3-10.7 [facility] Platelets Auto (Bld) [#/Vol] Ordered By: Donny Jacobson on 01-18-2022 Platelets (Bld) [#/Vol] 242 10*3/uL 150-450 [facility] RBC Auto (Bld) [#/Vol]Ordere d By: Donny Jacobson on 01-18-2022 RBC (Bld) [#/Vol] 4.91 10*6/uL 3.60-5.00 [facility] Serum or plasma calcium augustin urement (mass/volume)Ordered By: Donny Jacobson on 01-18-2022 Calcium [Mass/Vol] 9.0 mg/dL 8.2-10.2 [facility] Serum or plasma chloride sudha surement (moles/volume)Ordered By: Donny Jacobson on 01-18-2022 Chloride [Moles/Vol] 101 mmol/L 95-114 [facility] Serum or plasma glucose augustin urement (mass/volume)Ordered By: Donny Jacobson on 01-18-2022 Glucose [Mass/Vol] 160 mg/dL 70-100 [facility] Comment on above: ADA recommended refe rence [...] on 01-18-2022 Potassium [Moles/Vol] 3.5 mmol/L 3.5-5.1 [facility] Serum or plasma sodium measu rement (moles/volume)Ordered By: Donny Jacobson on 01-18-2022 Sodium [Moles/Vol] 134 mmol/L 136-146 [facility] Serum or plasma total carbon dioxide measurement (moles/volume)Ordered By: Donny Jacobson on 01-18-2022 CO2 [Moles/Vol] 24.2 mmol/L 22.0-30.0 [facility] Serum or plasma urea nitroge n measurement (mass/volume)Ordered By: Donny Jacobson on 01-18-2022 Urea nitrogen [Mass/Vol] 6 mg/dL 9-23 [facility] NM HEPATOBILIARY SCANon 11-30 NM HEPATOBILIARY [...] by: RONNY BENÍTEZ Date: 2021-12-16 16:45 Normal [facility] CT ABD/PELVIS WO CONon 12-10 CT [...] by: ROJAS BERNABE Date: 2021-12-10 08:42 Normal [facility] GLYCOHEMOGLOBIN A1Con 2021 ADA RECOMMENDATION SEE BELOW Normal [facility] Comment on above: Result Comment: ADA RECOMMENDED LIMIT 4.0 - 6.0 ADA THERAPEUTIC TARGET < 7.0 ACTION SUGGESTED > 7.0 Performed By: #### A 1C #### [facility] [address], [place] [address] Dr. Rosario Cameron Glucose [Mass/Vol] 255 mg/dL Normal [facility] Comment on above: Performed By: #### A 1C #### [facility] [address] [place] [address] [address] Rosario Cameron HbA1c (Bld) [Mass fraction] 10.5 % Critically high 4.5-6.2 [facility] Comment on above: Performed By: #### A 1C #### [facility] [address] [place] [address] Dr. Rosario Cameron PROF 14(COMP METB)on 022 Albumin [Mass/Vol] 3.5 g/dL Normal 3.4-5.0 [facility] Comment on above: Performed By: #### C MP #### [facility] [address] [place] [address] Dr. Rosario Cameron Albumin/Globulin [Mass ratio] 1.0 {ratio} Normal [facility] Comment on above: Performed By: #### C MP #### [facility] [address] [place] [address] Dr. Rosario Cameron ALP [Catalytic activity/Vol] 118 U/L Critically high 46-116 [facility] Comment on above: Performed By: #### C MP #### [facility] [address] [place] [address] Dr. Rosario Cameron ALT [Catalytic activity/Vol] 45 U/L Normal 14-59 [facility] Comment on above: Performed By: #### C MP #### [facility] [address] [place] [address] Dr. Rosario Cameron Anion gap [Moles/Vol] 13.1 mmol/L Normal [facility] Comment on above: Performed By: #### C MP #### [facility] [address] [place] [address] Dr. Rosario Cameron AST [Catalytic activity/Vol] 24 U/L Normal 15-37 [facility] Comment on above: Performed By: #### C MP #### [facility] [address] [place] [address] Dr. Rosario Cameron Bilirubin [Mass/Vol] 0.5 mg/dL Normal 0.2-1.0 [facility] Comment on above: Performed By: #### C MP #### [facility] [address] [place] [address] Dr. Rosario Cameron Calcium [Mass/Vol] 9.0 mg/dL Normal 8.5-10.1 [facility] Comment on above: Performed By: #### C MP #### [facility] [address] [place] [address] Dr. Rosario Cameron Chloride [Moles/Vol] 99 mmol/L Normal 98-107 [facility] Comment on above: Performed By: #### C MP #### [facility] [address] [address] [address] Rosario Cameron CO2 [Moles/Vol] 28.1 mmol/L Normal 21.0-32.0 [facility] Comment on above: Performed By: #### C MP #### [facility] [address] [place] [address] Dr. Rosario Cameron Creatinine [Mass/Vol] 0.64 mg/dL Normal 0.55-1.02 [facility] Comment on above: Performed By: #### C MP #### [facility] [address] [place] [address] Dr. Rosario Cameron EGFR-AF CITIZEN [place] >60 Normal >=60 [facility] Comment on above: Performed By: #### C MP #### [facility] [address] [place] [address] Dr. Rosario Cameron EGFR-NON AF CITIZEN OF [place] >60 Normal >=60 [facility] Comment on above: Performed By: #### C MP #### [facility] [address] [place] [address] Dr. Rosario Cameron Globulin (S) [Mass/Vol] 3.6 g/dL Normal [facility] Comment on above: Performed By: #### C MP #### [facility] [address] [address] [address] Rosario Cameron Glucose [Mass/Vol] 277 mg/dL Critically high 74-106 [facility] Comment on above: Performed By: #### C MP #### [facility] [address] [address] [address] Rosario Cameron Potassium [Moles/Vol] 4.2 mmol/L Normal 3.5-5.1 [facility] Comment on above: Performed By: #### C MP #### [facility] [address] [address] [address] Rosario Cameron Protein [Mass/Vol] 7.1 g/dL Normal 6.4-8.2 [facility] Comment on above: Performed By: #### C MP #### [facility] [address] [address] [address] Rosario Cameron Sodium [Moles/Vol] 136 mmol/L Normal 136-145 [facility] Comment on above: Performed By: #### C MP #### [facility] [address] [address] [address] Rosario Cameron Urea nitrogen [Mass/Vol] 10.0 mg/dL Normal 7.0-18.0 [facility] Comment on above: Performed By: #### C MP #### [facility] [address] [address] [address] Rosario Cameron Urea nitrogen/Creatinine [Mass ratio] 15.6 mg/mg Normal [facility] Comment on above: Performed By: #### C MP #### [facility] [address] [address] [address] Rosario Cameron Vital Signs Date Time Vital Sign Value Performing Clinician Facility 07-09-2024 14:41-0500 Body height 157.5 cm Renata Veronicaoll [employer] Work Phone: [facility] 07-09-2024 14:41-0500 Body mass index (BMI) [Ratio] 25.97 kg/m2 Renata Veronicaoll [employer] Work Phone: [facility] 07-09-2024 14:41-0500 Body weight 64.41 kg Renata Veronicaoll [employer] Work Phone: [facility] 07-09-2024 14:41-0500 Diastolic blood pressure 70 mm[Hg] Renata Veronicaoll [employer] Work Phone: [facility] 07-09-2024 14:41-0500 Heart rate 88 /min Renata Veronicaoll [employer] Work Phone: [facility] 07-09-2024 14:41-0500 SaO2% (BldA) [Mass fraction] 93 % Renata Moran [employer] Work Phone: [facility] 07-09-2024 14:41-0500 Systolic blood pressure 124 mm[Hg] Renata Moran [employer] Work Phone: [facility] 05-26-2024 09:33-0500 Body height 154.9 cm Ashwin Furlong DO Work Phone: [facility] 05-26-2024 09:33-0500 Body mass index (BMI) [Ratio] 26.55 kg/m2 Ashwin Furlong DO Work Phone: [facility] 05-26-2024 09:33-0500 Body temperature 98.01 [degF] Ashwin Furlong DO Work Phone: [facility] 05-26-2024 09:33-0500 Body weight 63.73 kg Ashwin Furlong DO Work Phone: [facility] 05-26-2024 09:33-0500 Diastolic blood pressure 56 mm[Hg] Ashwin Furlong DO Work Phone: [facility] 05-26-2024 09:33-0500 Heart rate 71 /min Ashwin Furlong DO Work Phone: [facility] [employer] [facility] 05-26-2024 09:33-0500 Respiratory rate 20 /min Ashwin Furlong DO Work Phone: [facility] 05-26-2024 09:33-0500 SaO2% (BldA) [Mass fraction] 95 % Ashwin Furlong DO Work Phone: [facility] 05-26-2024 09:33-0500 Systolic blood pressure 124 mm[Hg] Ashwin Furlong DO Work Phone: [facility] 04-08-2024 10:49-0400 Body height 154.9 cm Hilario MAXWELL Work Phone: [facility] [employer] [facility] 04-08-2024 10:49-0400 Body mass index (BMI) [Ratio] 25.81 kg/m2 Hilario Dia APRN-[employer] SP[employer]ER Work Phone: [facility] 04-08-2024 10:49-0400 Body temperature 98.49 [degF] Hilario Dia APRN-[employer] SP[employer]ER Work Phone: [facility] 04-08-2024 10:49-0400 Body weight 61.96 kg Hilario Dia APRN-[employer] SP[employer]ER Work Phone: [facility] 04-08-2024 10:49-0400 Diastolic blood pressure 56 mm[Hg] Hilario Dia APRN-[employer] SP[employer]ER Work Phone: [facility] 04-08-2024 10:49-0400 Heart rate 67 /min Hilario Dia APRN-[employer] SP[employer]ER Work Phone: [facility] 04-08-2024 10:49-0400 Respiratory rate 20 /min Hilario Dia APRN-[employer] Work Phone: [facility] 04-08-2024 10:49-0400 SaO2% (BldA) [Mass fraction] 96 % Hilario Dia APRN-[employer] SP[employer] Work Phone: [facility] 04-08-2024 10:49-0400 Systolic blood pressure 108 mm[Hg] Hilario Dia APRN-[employer] SP[employer]ER Work Phone: [facility] 10-02-2023 11:26-0400 Body height 157.5 cm Pmh 1 [facility] 10-02-2023 11:26-0400 Body mass index (BMI) [Ratio] 25.61 kg/m2 [facility] 1 [facility] 10-02-2023 11:26-0400 Body weight 63.5 kg Pmh 1 [facility] 09-18-2023 [id number] Body height 157.5 cm Suzanna Green [employer] Work Phone: [facility] 09-18-2023 13:10-0400 Body mass index (BMI) [Ratio] 25.5 kg/m2 Suzanna Green [employer] Work Phone: [facility] 09-18-2023 13:10-0400 Body temperature 98.01 [degF] Suzanna Green APRN-[employer] Work Phone: [facility] 09-18-2023 13:10-0400 Body weight 63.23 kg Suzanna Green [employer] Work Phone: [facility] 09-18-2023 13:10-0400 Diastolic blood pressure 60 mm[Hg] Suzanna Green [employer] Work Phone: [facility] 09-18-2023 13:10-0400 Heart rate 68 /min Suzanna Green APRN-[employer] Work Phone: [facility] 09-18-2023 13:10-0400 SaO2% (BldA) [Mass fraction] 94 % Suzanna Green APRN[employer] Work Phone: [facility] 09-18-2023 13:10-0400 Systolic blood pressure 112 mm[Hg] Suzanna Green [employer] Work Phone: [facility] 09-17-2023 11:01-0400 Body height 157.5 cm Kayy Espinoza MD Work Phone: [facility] 09-17-2023 11:01-0400 Body mass index (BMI) [Ratio] 26.48 kg/m2 Kayy Espinoza MD Work Phone: [facility] [employer] [facility] 09-17-2023 11:01-0400 Body weight 65.68 kg Kayy Espinoza MD Work Phone: [facility] 09-17-2023 11:01-0400 Diastolic blood pressure 62 mm[Hg] Kayy Espinoza MD Work Phone: [facility] [employer] [facility] 09-17-2023 11:01-0400 Heart rate 68 /min Kayy Espinoza MD Work Phone: [facility] [employer] [facility] 09-17-2023 11:01-0400 SaO2% (BldA) [Mass fraction] 98 % Kayy Espinoza MD Work Phone: [facility] [employer] [facility] 09-17-2023 11:01-0400 Systolic blood pressure 130 mm[Hg] Kayy Espinoza MD Work Phone: [facility] [employer] [facility] 08-23-2023 11:26-0500 Body height 157.5 cm Suzanna Green [employer] Work Phone: [facility] [employer] [facility] 08-23-2023 11:26-0500 Body mass index (BMI) [Ratio] 25.35 kg/m2 Suzanna Green [employer] Work Phone: [facility] [facility] 08-23-2023 11:26-0500 Body temperature 97.59 [degF] Suzanna Green PACK P[employer]ER[employer]CH [employer] FEEDER Work Phone: [facility] [employer] [facility] 08-23-2023 11:26-0500 Body weight 62.87 kg Suzanna Green [employer] FE[employer]ER Work Phone: [facility] [employer] [facility] 08-23-2023 11:26-0500 Diastolic blood pressure 56 mm[Hg] Suzanna Green P[employer] FEEDER Work Phone: [facility] [employer] [facility] 08-23-2023 11:26-0500 Heart rate 63 /min Suzanna Green P[employer] FE[employer]ER Work Phone: [facility] [employer] [facility] 08-23-2023 11:26-0500 SaO2% (BldA) [Mass fraction] 96 % Suzanna Green P[employer] FEEDER Work Phone: [facility] [employer] [facility] 08-23-2023 11:26-0500 Systolic blood pressure 110 mm[Hg] Suzanna Green [employer] FEEDER Work Phone: [facility] 08-08-2023 13:35-0500 Body height 157.5 cm Suzanna Green P[employer] FE[employer]ER Work Phone: [facility] 08-08-2023 13:35-0500 Body mass index (BMI) [Ratio] 25.79 kg/m2 Suzanna Green P[employer] FEEDER Work Phone: [facility] 08-08-2023 13:35-0500 Body temperature 97.59 [degF] Suzanna Green P[employer] FE[employer]ER Work Phone: [facility] 08-08-2023 13:35-0500 Body weight 63.96 kg Suzanna Green P[employer] FEEDER Work Phone: [facility] 08-08-2023 13:35-0500 Diastolic blood pressure 60 mm[Hg] Suzanna Green P[employer] FEEDER Work Phone: [facility] 08-08-2023 13:35-0500 Heart rate 78 /min Suzanna Green P[employer] FEEDER Work Phone: [facility] 08-08-2023 13:35-0500 SaO2% (BldA) [Mass fraction] 92 % Suzanna Green P[employer]CH PR[employer] FEEDER Work Phone: [facility] 08-08-2023 13:35-0500 Systolic blood pressure 110 mm[Hg] Suzanna Green APRN-PUNCH PRESS FEEDER Work Phone: [facility] 07-24-2023 13:11-0500 Body height 157.5 cm Suzanna Green P[employer] FEEDER Work Phone: [facility] 07-24-2023 13:11-0500 Body mass index (BMI) [Ratio] 26.05 kg/m2 Suzanna Green P[employer] PR[employer] FEEDER Work Phone: [facility] 07-24-2023 13:11-0500 Body temperature 97.7 [degF] Suzanna Kuns PACK P[employer]ER[employer]CH PR[employer] FEEDER Work Phone: [employer] 07-24-2023 13:11-0500 Body weight 64.59 kg Suzanna MATTHEWPUNCH PRESS FEEDER Work Phone: [employer] 07-24-2023 13:11-0500 Diastolic blood pressure 62 mm[Hg] Suzanna MATTHEWPUNCH PRESS FEEDER [facility] 07-24-2023 13:11-0500 Heart rate 70 /min Suzanna MATTHEWPUNCH PRESS FEEDER Work Phone[facility] 07-24-2023 13:11-0500 SaO2% (BldA) [Mass fraction] 95 % Suzanna MATTHEWPUNCH PRESS FEEDER Work Phone: [employer] 07-24-2023 13:11-0500 Systolic blood pressure 98 mm[Hg] Suzanna DIAS Work Phone: [employer] 02-08-2023 09:45-0400 Body height 157.48 cm Vickie Ayon Other [employer] Other 02-08-2023 09:45-0400 Body mass index (BMI) [Ratio] 25.24 kg/m2 Vickie Ayon Other [employer] Other 02-08-2023 09:45-0400 Body weight 62.6 kg Vickie Ayon Other [employer] Other 02-08-2023 09:45-0400 Diastolic blood pressure 60 mm[Hg] Vickie Ayon Other [employer] Other 02-08-2023 09:45-0400 Systolic blood pressure 120 mm[Hg] Vickie Ayon Other [employer] Other 01-10-2023 13:45-0400 Body height 157.48 cm Ino Perkins Other [facility] [employer] Other 01-10-2023 13:45-0400 Diastolic blood pressure 78 mm[Hg] Ino Perkins Other [facility] [employer] Other 01-10-2023 13:45-0400 SaO2% (BldA) [Mass fraction] 96 % Ino Perkins Other [facility] [employer] Other 01-10-2023 13:45-0400 Systolic blood pressure 132 mm[Hg] Ino Perkins Other [facility] [employer] Other 01-03-2023 10:19-0400 Diastolic blood pressure 68 mm[Hg] DO Hayden House Work Phone: [facility] 01-03-2023 10:19-0400 Heart rate 68 /min DO Hayden House Work Phone: [facility] 01-03-2023 10:19-0400 Respiratory rate 16 /min DO Hayden House Work Phone: [facility] 01-03-2023 10:19-0400 SaO2% (BldA) [Mass fraction] 95 % DO Hayden House Work Phone: [facility] 01-03-2023 10:19-0400 Systolic blood pressure 133 mm[Hg] DO Hayden House Work Phone: [facility] 01-03-2023 09:17-0400 Body height 157.48 cm DO Hayden House Work Phone: [facility] 01-03-2023 09:17-0400 Body weight 60.32 kg DO Hayden House Work Phone: [facility] 12-18-2022 10:00-0400 Body height 157.48 cm Ino Perkins Other [employer] Other 12-18-2022 10:00-0400 Diastolic blood pressure 80 mm[Hg] Inonaif Perkins Other [employer] Other 12-18-2022 10:00-0400 SaO2% (BldA) [Mass fraction] 93 % Ino Maddie Other [employer] Other 12-18-2022 10:00-0400 Systolic blood pressure 142 mm[Hg] Inonaif Perkins Other [employer] Other 12-06-2022 13:45-0400 Diastolic blood pressure 64 mm[Hg] DO Hayden House Work Phone: [facility] 12-06-2022 13:45-0400 Heart rate 60 /min DO Hayden House Work Phone: [facility] 12-06-2022 13:45-0400 Respiratory rate 16 /min DO Hayden House Work Phone: [facility] 12-06-2022 13:45-0400 SaO2% (BldA) [Mass fraction] 96 % DO Hayden House Work Phone: [facility] 12-06-2022 13:45-0400 Systolic blood pressure 130 mm[Hg] DO Hayden House Work Phone: [facility] 12-06-2022 12:31-0400 Body height 157.48 cm DO Hayden House Work Phone: [facility] 12-06-2022 12:31-0400 Body weight 60.32 kg DO Hayden House Work Phone: [facility] 10-23-2022 10:15-0400 Body height 157.48 cm Ino Perkins Other [facility] [employer] Other 10-23-2022 10:15-0400 Diastolic blood pressure 82 mm[Hg] Ino Perkins Other [employer] Other 10-23-2022 10:15-0400 SaO2% (BldA) [Mass fraction] 94 % Ino Perkins Other [employer] Other 10-23-2022 10:15-0400 Systolic blood pressure 146 mm[Hg] Ino Perkins Other [employer] Other 09-21-2022 16:00-0400 Body height 157.48 cm Ino Perkins Other [employer] Other 09-21-2022 16:00-0400 Body mass index (BMI) [Ratio] 22.86 kg/m2 Ino Perkins Other [employer] Other 09-21-2022 16:00-0400 Body weight 56.7 kg Ino Perkins Other [employer] Other 09-21-2022 16:00-0400 Diastolic blood pressure 70 mm[Hg] Ino Perkins Other [employer] Other 09-21-2022 16:00-0400 Systolic blood pressure 140 mm[Hg] Ino Perkins Other [employer] Other 05-15-2022 12:00-0500 Body height 157.48 cm Ino Perkins Other [employer] Other 05-15-2022 12:00-0500 Body mass index (BMI) [Ratio] 22.86 kg/m2 Ino Perkins Other [employer] Other 05-15-2022 12:00-0500 Body weight 56.7 kg Ino Perkins Other [employer] Other 05-15-2022 12:00-0500 Diastolic blood pressure 70 mm[Hg] Ino Perkins Other [employer] Other 05-15-2022 12:00-0500 SaO2% (BldA) [Mass fraction] 97 % Ino Perkins Other [employer] Other 05-15-2022 12:00-0500 Systolic blood pressure 140 mm[Hg] Ino Perkins Other [employer] Other 04-11-2022 15:35-0400 Body height 157.48 cm Hayden [employer] Work Phone: [facility] [employer] 250 DO Work Phone: 04-11-2022 15:35-0400 Body mass index (BMI) [Ratio] 22.13 kg/m2 Hayden [employer] Work Phone: [facility] [employer] 250 DO Work Phone: 04-11-2022 15:35-0400 Body surface area Derived from formula 1.54 m2 Hayden [employer] Work Phone: [facility] [employer] 250 DO Work Phone: 04-11-2022 15:35-0400 Body weight 54.89 kg Hayden P Kwicr Work Phone: [facility] [employer] 250 DO Work Phone: 04-11-2022 15:35-0400 Diastolic blood pressure 84 mm[Hg] Hayden P Kwicr Work Phone: [facility] [employer] 250 DO Work Phone: 04-11-2022 15:35-0400 Heart rate 66 /min Hayden P House Work Phone: [facility] 250 DO Work Phone: 04-11-2022 15:35-0400 Systolic blood pressure 136 mm[Hg] Hayden P House Work Phone: [facility] 250 DO Work Phone: 03-31-2022 17:26-0400 Diastolic blood pressure 70 mm[Hg] DO Hayden House Work Phone: [facility] 03-31-2022 17:26-0400 Heart rate 65 /min DO Hayden House Work Phone: [facility] 03-31-2022 17:26-0400 Respiratory rate 18 /min DO Hayden House Work Phone: [facility] 03-31-2022 17:26-0400 SaO2% (BldA) [Mass fraction] 93 % DO Hayden House Work Phone: [facility] 03-31-2022 17:26-0400 Systolic blood pressure 126 mm[Hg] DO Hayden House Work Phone: [facility] 03-31-2022 16:05-0400 Body temperature 97.7 [degF] DO Hayden House Work Phone: [facility] 03-31-2022 15:33-0400 Body height 157.48 cm DO Hayden House Work Phone: [facility] 03-31-2022 15:33-0400 Body mass index (BMI) [Ratio] 22.6 kg/m2 DO Hayden House Work Phone: [facility] 03-31-2022 15:33-0400 Body weight 56 kg DO Hayden House Work Phone: [facility] 02-24-2022 12:01-0400 Diastolic blood pressure 64 mm[Hg] DO Donny Laffay Work Phone: [facility] 02-24-2022 12:01-0400 Heart rate 52 /min DO Donny Jacobson Work Phone: [facility] 02-24-2022 12:01-0400 Systolic blood pressure 116 mm[Hg] DO Donny Jacobson Work Phone: [facility] 02-24-2022 00:00-0400 71 1 Hayden P House Work Phone: [facility] 250 DO Work Phone: Comment on above: [id number] 01-20-2022 09:26-0400 Diastolic blood pressure 50 mm[Hg] Hayden P House Work Phone: [facility] 250 DO Work Phone: 01-20-2022 09:26-0400 Systolic blood pressure 118 mm[Hg] Hayden P House Work Phone: [facility] 250 DO Work Phone: 01-20-2022 09:25-0400 Body height 157.48 cm Hayden P House Work Phone: [facility] 250 DO Work Phone: 01-20-2022 09:25-0400 Body mass index (BMI) [Ratio] 22.68 kg/m2 Hayden P House Work Phone: [facility] 250 DO Work Phone: 01-20-2022 09:25-0400 Body surface area Derived from formula 1.56 m2 Hayden P House Work Phone: [facility] 250 DO Work Phone: 01-20-2022 09:25-0400 Body weight 56.25 kg Hayden P House Work Phone: [facility] 250 DO Work Phone: 01-20-2022 09:25-0400 Diastolic blood pressure 52 mm[Hg] Hayden P House Work Phone: [facility] 250 DO Work Phone: 01-20-2022 09:25-0400 Heart rate 66 /min Hayden P House Work Phone: [facility] 250 DO Work Phone: 01-20-2022 09:25-0400 Systolic blood pressure 126 mm[Hg] Hayden P House Work Phone: [facility] 250 DO Work Phone: 01-18-2022 10:39-0400 Body height 157.48 cm DO Donny Laffay Work Phone: [facility] 01-18-2022 10:39-0400 Body temperature 98.1 [degF] DO Donny Laffay Work Phone: [facility] 01-18-2022 10:39-0400 Body weight 56.7 kg DO Donny Laffay Work Phone: [facility] 01-18-2022 10:39-0400 Diastolic blood pressure 68 mm[Hg] DO Donny Laffay Work Phone: [facility] 01-18-2022 10:39-0400 Heart rate 71 /min DO Donny Laffay Work Phone: [facility] 01-18-2022 10:39-0400 Respiratory rate 16 /min DO Donny Laffay Work Phone: [facility] 01-18-2022 10:39-0400 SaO2% (BldA) [Mass fraction] 96 % DO Donny Laffay Work Phone: [facility] 01-18-2022 10:39-0400 Systolic blood pressure 130 mm[Hg] DO Donny Laffay Work Phone: [facility] Encounters Encounter Date Encounter Type Care Provider Facility Start: 07-14-2024 End: 07-14-2024 Refill Trini Cortez [facility] Comment on above: Gastroesophageal ref lux disease with esophagitis without hemorrhage Start: 07-14-2024 End: 07-14-2024 Refill Hilario Dia [employer] P[employer]ER[employer]GLUE SPREADER [facility] Comment on above: Gastroesophageal ref lux disease with esophagitis without hemorrhage Start: 07-09-2024 End: 07-09-2024 Office outpatient visit 15 minutes Renatasubha Moran [employer] Work Phone: [facility] Comment on above: Lumbosacral radiculo laura (Primary Dx); Lumbar spondylosis; Weakness of both lower extremities; Ataxia; Imbalance; Lacunar infarction (CMS/HCC); Other chronic pain Start: 07-09-2024 End: 07-09-2024 ambulatory RENATA DEAN Not Available Start: 07-09-2024 End: 07-09-2024 Bamboo flowsheet Renata Dean [employer] Work Phone: [facility] Start: 07-09-2024 End: 07-09-2024 Bamboo flowsheet Renata Veronicaoll [employer] Work Phone: [facility] Start: 06-10-2024 End: 06-10-2024 Orders Only Ashwin Sherwooddevanteng DO [facility] Start: 06-06-2024 End: 06-06-2024 Orders Only Ashwin Sherwoodlong DO Work Phone[facility] Comment on above: COPD exacerbation (C [place]-HCC) (Primary Dx) Start: 06-06-2024 End: 06-07-2024 Refill Ashwin Sherwoodlong DO Work Phone[facility] Start: 05-30-2024 End: 06-02-2024 [facility] Comment on above: Mixed simple and muc opurulent chronic bronchitis (CMS-HCC) Start: 05-26-2024 End: 05-26-2024 Office outpatient visit 15 minutes Ashwin Dudley DO Work Phone: [facility] Comment on above: COPD exacerbation (C [place]-HCC) (Primary Dx); Chronic obstructive pulmonary disease, unspecified COPD type (CMS-HCC); Respiratory infection Start: 05-26-2024 End: 05-26-2024 ambulatory ASHWIN Alida [facility] Start: 04-11-2024 End: 04-14-2024 Sandra Casey [facility] Comment on above: Type 2 diabetes raúl itus without complication, without long- term current use of insulin ([facility] Start: 04-08-2024 End: 04-08-2024 ambulatory [facility] Start: 04-08-2024 End: 04-08-2024 [facility] [facility]READ[facility] Work Phone: [facility] Comment on above: Type 2 diabetes raúl itus without complication, without long- term current use of insulin ([facility]) (Primary Dx); Calcification of aorta ([facility]); COPD exacerbation ([facility]); Mixed simple and mucopurulent chronic bronchitis ([facility]) Start: 03-31-2024 End: 03-31-2024 ambulatory COLT COVARRUBIAS [facility] Start: 01-24-2024 End: 01-24-2024 ambulatory RENATA MORAN Not Available Start: 01-21-2024 End: 01-21-2024 Patient encounter procedure PHYSICIAN [facility] [place] Work Phone: Start: 01-21-2024 End: 01-21-[address] [facility] Work Phone: Start: 12-19-2023 End: 12-19-2023 ambulatory RENATA MORAN Not Available Start: 11-07-2023 End: 11-07-2023 ambulatory [facility] Start: 10-29-2023 End: 10-29-2023 ambulatory [facility] Start: 10-18-2023 End: 10-18-2023 ambulatory [facility] Start: 10-11-2023 End: 10-11-2023 ambulatory [facility] Start: 10-11-2023 End: 10-11-2023 ambulatory [facility] Start: 10-03-2023 End: 10-04-2023 Evaluation and management of inpatient [facility] Start: 10-02-2023 End: 10-02-2023 ambulatory [facility] Pat Phone Call Provider 1 [facility] - Pre Ad[facility] Start: 09-27-2023 Orders Only Suzanna Petersen [employer]ER[employer]CH PR[employer] FEEDER Work Phone: [facility] Comment on above: Type 2 diabetes raúl itus without complication, without long- term current use of insulin ([facility]) (Primary Dx) Start: 09-24-2023 End: 09-24-2023 ambulatory BIANCA WANG Not Available Start: 09-19-2023 End: 09-19-2023 ambulatory BIANCA WANG Not Available Start: 09-18-2023 End: 09-18-2023 Office outpatient visit 25 minutes Suzanna Gibson Tae P[employer] P[employer]ER[employer]CH PR[employer] FEEDER Work [facility]: [facility] Comment on above: Diarrhea, unspecifie d type (Primary Dx); Type 2 diabetes mellitus without complication, without long-term current use of insulin ([facility]); Mixed simple and mucopurulent chronic bronchitis ([facility]) Start: 09-18-2023 End: 09-18-2023 ambulatory CONI [facility] Start: 09-17-2023 End: 09-17-2023 Office outpatient new 30 minutes Kyay Espinoza MD Work Phone: [facility] Comment on above: BURCH (dyspnea on exer tion) (Primary Dx); Coronary artery disease involving [place] coronary artery of [place] heart with angina pectoris ([facility]); Type 2 diabetes mellitus without complication, without long-term current use of insulin ([facility]); Other hyperlipidemia; Essential hypertension; Centrilobular emphysema ([facility]) Start: 09-17-2023 End: 09-17-2023 ambulatory MARICEL Zambrano [facility] Start: 09-14-2023 Telephone encounter Yael William [facility] Start: 09-14-2023 End: 09-14-2023 ambulatory EDNA MICHAEL Not Available Start: 09-11-2023 End: 09-11-2023 ambulatory BIANCA WANG Not Available Start: 09-10-2023 End: 09-10-2023 ambulatory RAQUEL GALVAN Not Available Start: 09-03-2023 Chart abstracting Scanning Pro [employer]ider External [facility] Start: 08-27-2023 End: 08-27-2023 ambulatory [facility] Start: 08-23-2023 End: 08-24-2023 ambulatory [facility] Start: 08-23-2023 End: 08-23-2023 Office outpatient visit 25 minutes [facility] P[employer] PR[employer] FEEDER Work Phone: [facility] Comment on above: Type 2 diabetes raúl itus without complication, without long- term current use of insulin ([facility]) (Primary Dx); Mixed simple and mucopurulent chronic bronchitis ([facility]); Functional diarrhea Start: 08-23-2023 End: 08-23-2023 ambulatory [facility] Start: 08-22-2023 End: 08-22-2023 ambulatory YADIBABITA GARCIA Not Available Start: 08-20-2023 End: 08-20-2023 ambulatory BIANCA WANG Not Available Start: 08-13-2023 Bamboo flowsheet Raquel troy [employer] Work Phone: [facility] Start: 08-13-2023 Bamboo flowsheet Raquel troy [employer] Work Phone: [facility] Start: 08-13-2023 End: 08-13-2023 ambulatory RAQUEL GALVAN Not Available Start: 08-13-2023 End: 08-13-2023 Office outpatient new 30 minutes Raquel Chi Neenajesus [employer] Work Phone: [facility] Comment on above: Bilateral shoulder p ain, unspecified chronicity (Primary Dx); Myalgia Start: 08-09-2023 Telephone encounter Georges kendall MD Work [facility]: [facility] Start: 08-08-2023 End: 08-08-2023 ambulatory [facility] Start: 08-08-2023 End: 08-08-2023 Office outpatient visit 25 minutes Suzanna Green [employer] FEEDER Work Phone: [facility] Comment on above: Mixed simple and muc opurulent chronic bronchitis (CMS-HCC) (Primary Dx); Type 2 diabetes mellitus without complication, without long-term current use of insulin (CMS-HCC); Coronary artery disease involving [place] coronary artery of [place] heart with angina pectoris (CMS-HCC); Avascular necrosis (CMS-HCC) Start: 07-25-2023 Orders Only Suzanna Green [employer] FEEDER Work Phone: [facility] Comment on above: Type 2 diabetes raúl itus without complication, without long- term current use of insulin (CMS-HCC) (Primary Dx); Other hyperlipidemia Start: 07-24-2023 End: 07-25-2023 ambulatory [facility] Start: 07-24-2023 End: 07-24-2023 Initial preventive medicine new patient 67yrs&> Suzanna Petersenloc [employer] FEEDER Work Phone: [facility] Comment on above: Chronic obstructive pulmonary disease, unspecified COPD type (CMS-HCC) (Primary Dx); Sciatica, left side; Tobacco abuse disorder; Hyperglycemia; Mixed hyperlipidemia; Fatigue, unspecified type; Thoracic myofascial strain, sequela; Encounter for screening mammogram for malignant neoplasm of breast; Personal history of nicotine dependence; Screen for colon cancer; Gastroesophageal reflux disease with esophagitis without hemorrhage; BMI 26.0-26.9,adult Start: 07-24-2023 End: 07-24-2023 ambulatory [facility] Start: 05-17-2023 End: 05-17-2023 Patient encounter procedure PHYSICIAN NO [facility] [place] Work Phone: Start: 05-17-2023 End: 05-17-2023 ambulatory PHYSICIAN NO [facility] Work Phone: Start: 02-08-2023 End: 02-08-2023 ambulatory Vickie Ayon Other [employer] Other Start: 02-08-2023 Office outpatient vi sit 15 minutes Vickie Ayon [facility] Start: 01-24-2023 (PROC) [facility] Start: 01-24-2023 End: 01-24-2023 ambulatory Ino Perkins [employer] Other Start: 01-10-2023 End: 01-10-2023 ambulatory Ino Perkins Other [employer] Other Start: 01-10-2023 Office outpatient vi sit 25 minutes Ino Maddie [facility] Start: 01-03-2023 (PROC) PROCEDURE nIo Call [facility] Start: 01-03-2023 End: 01-03-2023 Admission to same day surgery center DO Hayden House Work Phone: [facility] Work Phone: Start: 01-03-2023 End: 01-03-2023 ambulatory DO [employer] Work Phone: [facility] Work Phone: Start: 12-18-2022 End: 12-18-2022 ambulatory Ino Perkins Other [employer] Other Start: 12-18-2022 Office outpatient vi sit 15 minutes Ino Perkins [facility] Start: 12-06-2022 (PROC) PROCEDURE Ino Perkins [facility] Start: 12-06-2022 End: 12-06-2022 Admission to same day surgery center DO Hayden House Work Phone: [facility] Work Phone: Start: 12-06-2022 End: 12-06-2022 ambulatory DO Hayden House Work Phone: [facility] Work Phone: Start: 11-06-2022 End: 11-06-2022 Patient encounter procedure DO Hayden House Work Phone: [facility] [place] Work Phone: Start: 10-23-2022 End: 10-23-2022 ambulatory Ino Perkins Other [employer] Other Start: 10-23-2022 Office outpatient vi sit 25 minutes Ino Perkins [facility] Start: 10-09-2022 End: 10-09-2022 ambulatory DO Hayden House Work Phone: [facility] Work Phone: Start: 10-09-2022 End: 10-09-2022 Discharged Recurring DO Hayden House Work Phone: [facility] [place] Work Phone: Start: 09-21-2022 End: 09-21-2022 ambulatory Ino Perkins Other [employer] Other Start: 09-21-2022 Patient encounter procedure Ino Perkins [facility] Start: 08-07-2022 Chart Update Hayden P Hous e Work Phone: -[facility] 250 DO Work Phone: Start: 05-16-2022 End: 05-16-2022 ambulatory DO Hayden Dodson Work Phone: [facility] Work Phone: Start: 05-16-2022 End: 05-16-2022 Patient encounter procedure DO Hayden Dodson Work Phone: [facility]-XRay [facility] [place] Start: 05-15-2022 End: 05-15-2022 ambulatory Ino Perkins Other [facility] [employer] Other Start: 05-15-2022 Office outpatient vi sit 25 minutes Ino Perkins [facility] Start: 04-11-2022 Office outpatient vi sit 15 minutes Hayden P House Work Phone: [facility] 250 DO Work Phone: Start: 04-11-[address] Yakelin Crowe Facility: Start: 03-31-2022 End: 03-31-2022 Admission to same day surgery center DO Hayden Dodson Work Phone: [facility]-Surgery [facility] Start: 03-31-2022 End: 03-31-2022 ambulatory DO Hayden Dodson Work Phone: [facility] Work Phone: Start: 03-29-2022 End: 03-29-2022 ambulatory DO Hayden Dodson Work Phone: [facility] Work Phone: Start: 03-29-2022 End: 03-29-2022 Patient encounter procedure DO Hayden Dodson Work Phone: [facility] Qjn-Ycj-Cdemtkdg Testing Start: 03-17-2022 End: 03-17-2022 Patient encounter procedure DO Donny Mayjohnny Work Phone: [facility] Xon-Nws-Rhtyvepv Testing Start: 03-03-2022 Chart Update Hayden Lew Hous e Work Phone: [facility] 250 DO Work Phone: Start: 02-27-2022 Chart Update Hayden mullins Work Phone: [facility] 600 DO Work Phone: Start: 02-24-[address] Yakelin Crowe Facility:[id number] Start: 02-24-2022 End: 02-24-2022 Patient encounter procedure DO Donny Jacobson Work Phone: [facility] Start: 01-25-2022 End: 01-25-2022 Departed Referred DO Donny Jacobson Work Phone: [facility]-Surgery [facility] Start: 01-20-2022 Office consultation new/estab patient 60 min Hayden Dodson Work Phone: [facility] 250 DO Work Phone: Start: 01-20-[address] Yakelin Crowe Facility: Start: 01-18-2022 End: 01-18-2022 Patient encounter procedure DO Donny Jacobson Work Phone: [facility]-Pre-Surgical Testing Start: 12-16-2021 End: 12-17-[address] HAYDEN DODSON Facility:H1 Start: 12-09-2021 End: 12-10-[address] HAYDEN DODSON Facility:H1 Start: 11-30-2021 End: 12-01-[address] HAYDEN DODSON Facility:H1 Patient encounter status Hayden Dodson Work Phone: [facility] 250 DO Work Phone: Procedures Date Procedure Procedure Detail Performing Clinician Start: 05-26-2024 POCT INFLUENZA A/INFLUENZA B/SARS-COV-2 VERITOR Ashwin Dudley DO Work Phone: Start: 05-26-2024 Adult depression screening assessment Ashwin Dudley DO Work Phone: Start: 04-08-2024 Hemoglobin glycosyla matt a1c Hilario Dia APRN-GLUE SPREADER Work Phone: Start: 04-08-2024 Adult depression screening assessment Hilario Dia PACK PULLER-GLUE SPREADER Work Phone: Start: 03-31-2024 Follow-up visit Follow-up COTL COVARRUBIAS Start: 01-21-2024 MRI of cervical spin e with contrast PHYSICIAN NO FAMILY Start: 01-21-2024 XR pre/post mri xray PH YSICIAN NO FAMILY Start: 09-18-2023 Adult depression screening assessment Suzanna Green PACK PULLER-PUNCH PRESS FEEDER Work Phone: Start: 09-17-2023 Ecg routine ecg w/le ast 12 lds w/i&r Kayy Espinoza MD Work Phone: Start: 08-27-2023 Adult depression screening assessment Scanning External Start: 08-23-2023 Adult depression screening assessment Suzanna Green PACK PULLER-P[employer]CH PRESS FEEDER Work Phone: Start: 08-23-2023 Microalbumin [Mass/volume] in Urine by Test strip Suzanna Green PACK PULLER-PUNCH PRESS FEEDER Work Phone: Start: 08-08-2023 Adult depression screening assessment Suzanna Green PACK PULLER-PUNCH PRESS FEEDER Work Phone: Start: 07-24-2023 Adult depression screening assessment Suzanna Green PACK PULLER-PUNCH PRESS FEEDER Work Phone: Start: 01-03-2023 Local anesthetic lum bar facet joint nerve block DO [employer] Work Phone: Start: 12-06-2022 Local anesthetic lum bar facet joint nerve block DO [employer] Work Phone: Start: 11-06-2022 MR thoracic spine wo con DO [employer] Work Phone: Start: 05-16-2022 Radiography of thora cic spine DO [employer] Work Phone: Start: 03-31-2022 Laparoscopic cholecystectomy DO [employer] Work Phone: Start: 02-24-2022 Radionuclide myocard ial perfusion stress study DO Donny Laffay Work Phone: Cholecystectomy Hayden Lew Ho use Work Phone: Ligation of fallopia n tube Hayden Lew House Work Phone: Procedure on back Hayden Dodson Work Phone: NEGATED: Highlighted row has not occurred! Total colonoscopy Hayden Dodson Work Phone: Plan of Treatment Date Care Activity Detail Author Start: 05-26-2025 Adult BMI Screening Adult BMI Screening [facility] Start: 05-26-2025 Depression Screening Depression Screening [facility] Start: 05-26-2025 Fall Risk Screening Fall Risk Screening [facility] Start: 05-26-2025 Tobacco Screening Tobacco Screening [facility] Start: 04-08-2025 Adult BMI Follow Up Plan Adult BMI Follow Up Plan [facility] Start: 04-08-2025 Adult BMI Screening Adult BMI Screening [facility] Start: 04-08-2025 Depression Screening Depression Screening [facility] Start: 04-08-2025 Fall Risk Screening Fall Risk Screening [facility] Start: 04-08-2025 Tobacco Screening Tobacco Screening [facility] Start: 01-21-2025 Tobacco Counseling Tobacco Counseling [facility] Start: 01-12-2025 End: 01-12-2025 Patient encounter procedure 01/12/2025 8:40 AM EDT Office Visit [facility] [address] [place] [phone] Renata Moran NP [address] [place] [phone] [facility] Start: 11-06-2024 Adult BMI Follow Up Plan Adult BMI Follow Up Plan [facility] Start: 10-02-2024 Adult BMI Screening Adult BMI Screening [facility] Start: 10-02-2024 Tobacco Screening Tobacco Screening [facility] Start: 09-22-2024 Tobacco Screening Tobacco Screening [facility] Start: 09-17-2024 Adult BMI Screening Adult BMI Screening [facility] Start: 09-17-2024 Depression Screening Depression Screening [facility] Start: 09-17-2024 Fall Risk Screening Fall Risk Screening [facility] Start: 09-17-2024 Tobacco Screening Tobacco Screening [facility] Start: 09-16-2024 Adult BMI Screening Adult BMI Screening [facility] Start: 09-16-2024 Tobacco Screening Tobacco Screening [facility] Start: 08-27-2024 Adult BMI Screening Adult BMI Screening [facility] Start: 08-27-2024 Depression Screening Depression Screening [facility] Start: 08-27-2024 Fall Risk Screening Fall Risk Screening [facility] Start: 08-27-2024 Tobacco Screening Tobacco Screening [facility] Start: 08-23-2024 Adult BMI Screening Adult BMI Screening [facility] Start: 08-23-2024 Depression Screening Depression Screening [facility] Start: 08-23-2024 Diabetic foot examination Diabetic Foot Exam [facility] Start: 08-23-2024 Fall Risk Screening Fall Risk Screening [facility] Start: 08-23-2024 Tobacco Screening Tobacco Screening [facility] Start: 08-23-2024 Urine screening for protein Urine Microalbumin [facility] Start: 08-08-2024 Adult BMI Screening Adult BMI Screening [facility] Start: 08-08-2024 Depression Screening Depression Screening [facility] Start: 08-08-2024 Fall Risk Screening Fall Risk Screening [facility] Start: 08-08-2024 Tobacco Screening Tobacco Screening [facility] Start: 07-24-2024 Adult BMI Follow Up Plan Adult BMI Follow Up Plan [facility] Start: 07-24-2024 Adult BMI Screening Adult BMI Screening [facility] Start: 07-24-2024 Depression Screening Depression Screening [facility] Start: 07-24-2024 Fall Risk Screening Fall Risk Screening [facility] Start: 07-24-2024 Tobacco Screening Tobacco Screening [facility] Start: 07-09-2024 End: 07-09-2024 Patient encounter procedure 07/09/2024 2:40 PM EST Office Visit [facility] [address] [place] [phone] Renata Moran NP [address] [place] [phone] Lumbosacral radiculopathy (Primary Dx); Lumbar spondylosis; Weakness of both lower extremities; Ataxia; Imbalance; Lacunar infarction (CMS/HCC); Other chronic pain NI ELLEN Comment on above: Lumbosacral radiculopathy (Primary Dx); Lumbar spondylosis; Weakness of both lower extremities; Ataxia; Imbalance; Lacunar infarction (CMS/HCC); Other chronic pain Start: 06-06-2024 End: 06-06-2025 XR Chest PA and Lateral X-ray chest 2 views Imaging Routine COPD exacerbation (CMS-HCC) Expected: 06/06/2024, Expires: 06/06/2025 [facility] Work Phone: Comment on above: Expected: 06/06/2024, Expires: Start: 05-21-2024 End: 05-21-2024 Patient encounter procedure 05/21/2024 10:20 AM EST Office Visit [facility] - Family Medicine [address] [place] [phone] Hilario Dia, PACK PULLER-GLUE SPREADER [address] [place] [phone] [facility] Start: 03-31-2024 End: 03-31-2024 Patient encounter procedure 03/31/2024 11:15 AM EDT Office Visit [facility] [address] [place] [address] Deloris Mejia MD [address] [place] [address] [facility] Start: 03-02-2024 Influenza vaccination Influenza Vaccine [facility] Start: 10-11-2023 End: 10-11-2023 Patient encounter procedure 10/11/2023 11:45 AM EDT Appointment [facility] - Stress Imaging [address] [place] [address] Kayy Espinoza MD [address] [place] [address] [facility] Start: 10-11-2023 End: 10-11-2023 Patient encounter procedure [facility] Start: 10-11-2023 End: 10-11-2023 Patient encounter procedure [facility] - Cardiovascular Start: 10-03-2023 End: 10-03-2023 Admission to same day surgery center 10/03/2023 9:00 AM EDT - 10/03/2023 10:00 AM EDT Surgery [facility] - Endoscopy [address] [facility] [phone] Vanesa Tomas DO [address] [place] [address] COLONOSCOPY DIAGNOSTIC / SCREENING [22153 (CPT )] [facility] Endoscopy Comment on above: COLONOSCOPY DIAGNOSTIC / SCREENING [4537 8 (CPT )] Start: 10-03-2023 End: 10-03-2023 Colonoscopy flx dx w/collj spec when pfrmd COLONOSCOPY DIAGNOSTIC / SCREENING chronic diarrhea 10/03/2023 9:00 AM EDT [facility] Start: 10-03-2023 Subsequent hospital visit by physician [facility] - Endoscopy Comment on above: Chronic diarrhea (Primary Dx) Start: 10-02-2023 End: 10-02-2023 ambulatory 10/02/2023 3:00 PM EDT Support Visit [facility] - Pre Admit [address] [place] [phone] [facility] - Pre Admit Start: 09-18-2023 End: 09-18-2023 Patient encounter procedure 09/18/2023 1:00 PM EDT Office Visit [facility] - Family Medicine [address] [place] [phone] Suzanna Green, PACK PULLER-PUNCH PRESS FEEDER [address] [place] [address] [facility] Start: 09-17-2023 End: 09-16-2024 Echo complete W/O contrast Echo complete W/O contrast Echocardiography Routine Coronary artery disease involving [place] coronary artery of [place] heart with angina pectoris (CMS-HCC) Other hyperlipidemia BURCH (dyspnea on exertion) Expected: 09/17/2023, Expires: 09/16/2024 [facility] [employer] [facility] Comment on above: Expected: 09/17/2023, Expires: Start: 09-17-2023 End: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 diabetic visit. She has type 2 diabetes mellitus. Her disease course has been stable. There are no hypoglycemic associated symptoms. Pertinent negatives for diabetes include no chest pain. There are no hypoglycemic complications. Symptoms are stable. There are no diabetic complications. Risk factors for coronary artery disease include diabetes mellitus, dyslipidemia, family history and post-menopausal. She is compliant with treatment none of the time. Her weight is stable. She is following a low fat/cholesterol diet. Meal planning includes avoidance of concentrated sweets. She participates in exercise intermittently. (Is not routinely checking blood sugars) COPD Primary symptoms: chest tightness, dyspnea on exertion, frequent throat clearing, hoarse voice and wheezing Primary symptoms: no shortness of breath Onset: 1 to 4 weeks ago Frequency: Daily Progression since onset: Waxing and waning Severity: Moderate Associated symptoms: malaise/fatigue and nasal congestion Associated symptoms: no chest pain and no fever Aggravated by: Exposure to smoke, pollen and change in weather PMH includes: COPD and smoker Hyperlipidemia This is a chronic problem. The current episode started more than 1 year ago. Recent lipid tests were reviewed and are variable. Exacerbating diseases include diabetes and obesity. There are no known factors aggravating her hyperlipidemia. Pertinent negatives include no chest pain or shortness of breath. Current antihyperlipidemic treatment includes statins. The current treatment provides significant improvement of lipids. There are no compliance problems. The following portions of the patient's history were reviewed and updated as appropriate: allergies, current medications, past family history, past medical history, past social history, past surgical history and problem list. Past Surgical History: Procedure Laterality Date CHOLECYSTECTOMY COLONOSCOPY DIAGNOSTIC / SCREENING N/A 10/03/2023 Performed by Vanesa Tomas DO at [facility] LUMBAR FUSION TUBAL LIGATION Past Medical History: Diagnosis Date COPD (chronic obstructive pulmonary disease) ([facility]) Diabetes mellitus type 2, controlled ([facility]) Hyperlipidemia Sciatica 07/24/2023 Visual impairment There is no immunization history on file for this patient. REVIEW OF SYSTEMS: Review of Systems Constitutional: Positive for malaise/fatigue. Negative for chills and fever. HENT: Positive for hoarse voice. Eyes: Negative for visual disturbance. Respiratory: Positive for wheezing. Negative for chest tightness and shortness of breath. Cardiovascular: Positive for dyspnea on exertion. Negative for chest pain and palpitations. Gastrointestinal: Negative. Endocrine: Negative. Genitourinary: Negative for menstrual problem and pelvic pain. Musculoskeletal: Negative. Skin: Negative. Allergic/Immunologic: Negative. Neurological: Negative for syncope and facial asymmetry. Hematological: Does not bruise/bleed easily. Psychiatric/Behavioral: Negative. PHYSICAL EXAMINATION: Vitals: 04/08/24 1049 BP: 108/56 BP Site: Left Arm BP Postition: Sitting Pulse: 67 Resp: 20 Temp: 36.9 C (98.5 F) TempSrc: Oral SpO2: 96% Weight: 62 kg (136 lb 9.6 oz) Height: 154.9 cm (5' 1 ) Patient noted to have elevated BMI and the following intervention(s) were applied: encouragement to exercise. Physical Exam Vitals and nursing note reviewed. Constitutional: General: She is not in acute distress. Appearance: She is well-developed. She is not diaphoretic. HENT: Head: Normocephalic and atraumatic. Right Ear: Tympanic membrane and external ear normal. Left Ear: Tympanic membrane and external ear normal. Nose: Nose normal. Mouth/Throat: Mouth: Mucous membranes are moist. Pharynx: No oropharyngeal exudate. Eyes: General: Right eye: No discharge. Left eye: No discharge. Conjunctiva/sclera: Conjunctivae normal. Pupils: Pupils are equal, round, and reactive to light. Neck: Thyroid: No thyromegaly. Vascular: No JVD. Cardiovascular: Rate and Rhythm: Normal rate and regular rhythm. Heart sounds: Normal heart sounds. No murmur heard. No friction rub. No gallop. Pulmonary: Effort: Pulmonary effort is normal. Breath sounds: Normal breath sounds. Comments: Moist non productive cough present. Scattered expiratory wheezing. Abdominal: General: Bowel sounds are normal. There is no distension. Palpations: Abdomen is soft. There is no mass. Tenderness: There is no abdominal tenderness. Musculoskeletal: General: Normal range of motion. Cervical back: Normal range of motion and neck supple. Lymphadenopathy: Cervical: No cervical adenopathy. Skin: General: Skin is warm and dry. Capillary Refill: Capillary refill takes less than 2 seconds. Neurological: Mental Status: She is alert and oriented to person, place, and time. Deep Tendon Reflexes: Reflexes are normal and symmetric. Psychiatric: Mood and Affect: Mood normal. Behavior: Behavior normal. Thought Content: Thought content normal. Judgment: Judgment normal. ASSESSMENT/PLAN: Keely was seen today for diabetes. Diagnoses and all orders for this visit: Type 2 diabetes mellitus without complication, without long-term current use of insulin ([facility]) - POCT Hemoglobin A1c - dulaglutide (TRULICITY) 0.75 mg/0.5 mL pen injector; Inject 0.5 mL (0.75 mg total) under the skin once a week. Calcification of aorta ([facility]) COPD exacerbation ([facility]) - predniSONE (DELTASONE) 20 mg tablet; Take 1 tablet (20 mg total) by mouth See Admin Instructions. 1 tab 2x daily x3 days, 1 tab daily x3 days, 1/2 tablet daily x4 days Mixed simple and mucopurulent chronic bronchitis ([facility]) - stodgliyfpy-hgsgaoyqg-aaqsostc (TRELEGY ELLIPTA) 100-62.5-25 mcg blister with device; Inhale 1 puff once daily. Calcification of aorta -Monitored by cardiology. Last seen 03/31/24 Diffuse calcification of coronary arteries/subclavian arteries/aorta/renal and mesenteric vessels seen on low-dose CT scan Type 2 DM A1c 6.9% today. Was 9.8%. Considerable reduction in A1c with Trulicity 0.75 mg weekly. Was having difficulties obtaining Trulicity several months ago. She is able to obtain at this time. Encourage routine home blood sugar monitoring, diet modification, and exercise regimen. Encourage daily self skin foot checks Yearly eye exams Patient is taking statin COPD Exacerbation Start Prednisone 20 mg oral taper dosing as directed Patient is a current smoker, smoking cessation discussed today in office. He/She is not interested at this time ALL QUESTIONS ANSWERED Total time spent was 30 minutes: Preparing to see the patient (e.g., review of tests) Obtaining and/or reviewing separately obtained history Performing a medically appropriate examination and/or evaluation Counseling and educating the patient/family/caregiver Ordering medications, tests, or procedures Follow-up: Medicare wellness ALISSA Tabares 04/08/24 1518 [id number] [employer] 10-02-[facility]23 Nurse Note Preoperative Education Checklist- General Surgery date: 10/03/23 Surgery time: 9a Arrival time: 8a 1. Bring a photo ID and your insurance card with you the day of surgery. You will check in at the main lobby of the [facility]- registration desk is straight ahead as soon as you walk in. Tell them you are here for surgery. 2. If you have a Living Will/Durable Power of Cable Inspector for Health Care that is not on [...] after you have bathed. 5. NO nail wallisian/acrylic on at least one finger. If you are having a hand, wrist or foot surgery then all nail wallisian and artificial/acrylic nails must be removed from [...] WITH YOU ANY DEVICES YOU MAY NEED: MATT hose, ice machine, sling/swath, brace or special [...] please call the Preadmission Testing office at [phone], Mon.-Fri. 7 a.m.-3 p.m. Leave a voicemail [...] tablet Check with prescribing doctor for instructions zvtlhlpzakr-gqklyqakt-lfmcdkll (TRELEGY ELLIPTA) 100-62.5-25 mcg blister with device Take morning of procedure gabapentin (NEURONTIN) 600 mg tablet Stop taking 0 days prior to procedure pyrilamine-dextromethorphan 7.5-7.5 mg/5 mL liquid Stop taking 0 days prior to procedure rosuvastatin (CRESTOR) 20 mg tablet Stop taking 0 days prior to procedure [employer] 10-02-2023 Miscellaneous Notes Preoperative Education Checklist- General Surgery date: 10/03/23 Surgery time: 9a Arrival time: 8a 1. Bring a photo ID and your insurance card with you the day of surgery. You will check in at the main lobby of the [facility]- registration desk is straight ahead as soon as you walk in. Tell them you are here for surgery. 2. If you have a Living Will/Durable Power of Cable Inspector for Health Care that is not on [...] after you have bathed. 5. NO nail wallisian/acrylic on at least one finger. If you are having a hand, wrist or foot surgery then all nail wallisian and artificial/acrylic nails must be removed from [...] WITH YOU ANY DEVICES YOU MAY NEED: MATT hose, ice machine, sling/swath, brace or special [...] please call the Preadmission Testing office at [phone], Mon.-Fri. 7 a.m.-3 p.m. Leave a voicemail [...] tablet Check with prescribing doctor for instructions xvvwnclbkzu-qezfmjtzy-gxeojfew (TRELEGY ELLIPTA) 100-62.5-25 mcg blister with device Take morning of procedure gabapentin (NEURONTIN) 600 mg tablet Stop taking 0 days prior to procedure pyrilamine-dextromethorphan 7.5-7.5 mg/5 mL liquid Stop taking 0 days prior to procedure rosuvastatin (CRESTOR) 20 mg tablet Stop taking 0 days prior to procedure documented in this encounter [facility] 09-18-2023 History of Present illness Narrative Subjective Patient ID: Keely Castañeda is a 68 y.o. female. Despite stopping [...] long-term current use of insulin ([facility]) Mixed simple and mucopurulent chronic bronchitis ([facility]) Other orders - dulaglutide (TRULICITY) 1.5 mg/0.5 [...] Curiel 09/18/23 1426 documented in this encounter [facility] [employer] 09-17-2023 History of Present illness Narrative Keely Guevara Maddy Date of visit: 09/17/2023 Date of : 1955 Age: 68 y.o. Patient Active Problem List Diagnosis Sciatica COPD (chronic obstructive pulmonary disease) ([facility]) Type 2 diabetes mellitus without complication, without long-term current use of insulin ([facility]) Other hyperlipidemia Cholecystitis Allergies Allergen Reactions Glucophage [...] mg total) before bedtime. 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 Will proceed with Taila stress testing discussed with patient she verbalized [...] CHAMORRO Referring Physician: ARUN Curiel [address] [place] [address] documented in this encounter [employer] 09-17-2023 Instructions Maria E Ribeiro CMA - 09/17/2023 11:15 AM EDT Are You Ready To Kick The Habit? Free Tobacco Cessation Resources [facility] provide all employees with free tobacco cessation services that include: Counseling to understand nicotine addiction Education about medications that can help you successfully quit Assistance with developing a plan to quit Call to set up an individual appointment or find out when group classes will be held: Yissel [facility]: [phone] [facility]: [phone] [facility]: [phone] [facility]: [phone] Quit Smoking Action Plan and Resources [facility] offers an eight-week, online smoking cessation plan to all [facility] employees, regardless of whether [place] is your medical insurance provider. Go to [email or web address]/[email or web address] ess and click the Health Risk Assessment and Resources link to get started. In the [employer] menu, click Action Plans instead of Health Risk Assessment to access the Quit Smoking Action Plan. Additional smoking cessation resources are also available to all [facility] employees on the [employer] web page at www.iCopyright/quits glenn. [place] Tobacco Cessation Program If [place] is your medical insurance provider, there are more free resources available to you, including: No copays or deductibles on local tobacco cessation counseling services to help you quit Prescription assistance for tobacco cessation medications to help you quit For details about the tobacco cessation program available to [facility] members, go to www.[employer] (Search: Tobacco Cessation Program). [place] Tobacco Quit Line 9-342-JCLG-NOW ( ) is a toll-free, telephonic service that helps [place] residents quit smoking and using tobacco. It is staffed by experts who tailor a quit plan for you and provide you with advice. [place] Tobacco Quit Line 3-605-JULF-NOW ( ) is a toll-free, telephonic service that helps [place] residents quit smoking and using tobacco. It is staffed by experts who tailor a quit plan for you and provide you with advice. Two weeks of nicotine replacement therapy may be provided at no charge, if needed. Additional Resources These national organizations also offer free information and resources to help you quit tobacco: [place] [employer]--www.cancer.org/healthy/s tayawayfromtobacco [place] Heart [employer]--www.heart.org (Search: Quit Smoking) Centers for Disease Control and Prevention--www.cdc.gov/tobacco [place] Lung Association--www.lungusa.org documented in this encounter [facility] 09-14-2023 Miscellaneous Notes Called patient to remind them to bring their most current copy of their medication list with them to their appt. Patient verbalizes understanding. documented in this encounter [facility] 09-14-2023 Telephone encounter Note Called patient to remind them to bring their most current copy of their medication list with them to their appt. Patient verbalizes understanding. [facility] 08-23-2023 History of Present illness Narrative Subjective Patient ID: Keely Castañeda is a 68 y.o. female. Here today [...] long-term current use of insulin ([facility]) - Microalbumin - Albumin: Creatinine Urine Ratio; Future Mixed simple and mucopurulent chronic bronchitis ([facility]) - POCT microalbumin Functional diarrhea - diphenoxylate-atropine [...] Will see her back in 3 months Suzanna Green APRN-PUNCH PRESS FEEDER 08/23/23 [id number] documented in this encounter [facility] [employer] 08-13-2023 History of Present illness Narrative Subjective Patient ID: Keely Castañeda is a 68 y.o. female. Left medial [...] of pain control. documented in this encounter [facility] 08-09-2023 Miscellaneous Notes This is notification that we have received a referral for the patient. Please reach out to schedule new patient appointment in your office. Please check the referral tab in appt desk for details and to make sure to assign referral or schedule off of it. Thank you. documented in this encounter [facility] 08-09-2023 Telephone encounter Note This is notification that we have received a referral for the patient. Please reach out to schedule new patient appointment in your office. Please check the referral tab in appt desk for details and to make sure to assign referral or schedule off of it. Thank you. [facility] 08-08-2023 History of Present illness Narrative Subjective Patient ID: Keely Castañeda is a 68 y.o. female. Here today [...] nursing note reviewed. Exam conducted with a tracer lathe set up operator present (). Pulmonary: Effort: Pulmonary effort is normal. Neurological: Mental Status: She is alert and oriented to person, place, and time. Psychiatric: Thought Content: Thought content normal. Assessment/Plan Keely was seen today for dicuss ct results. Diagnoses and all orders for this visit: Mixed simple and mucopurulent chronic bronchitis ([facility]) - xfbyvqsmoxl-fxnpnmyng-jvkdevbs (TRELEGY ELLIPTA) 100-62.5-25 mcg blister with device; Inhale 1 puff once daily. - Ambulatory referral to Pulmonology ([facility]); Future Type 2 diabetes mellitus without complication, without long-term current use of insulin ([facility]) Coronary artery disease involving [place] coronary artery of [place] heart with angina pectoris ([facility]) - [facility] [place], [place]; Future Avascular necrosis ([facility]) - Ambulatory referral to Orthopedic Surgery ([facility]); [...] disease risk and have her see a clutch assembler to determine the next best test to [...] Curiel 08/08/23 1703 [facility] History of Present illness Narrative Subjective Patient ID: Keely Castañeda is a 68 y.o. female. She is [...] intact. Motor: Weakness present. Coordination: Coordination normal. Ihiqoj-Ucbm-Ykqtck Test abnormal. Gait: Gait abnormal (slow gait shuffling). Psychiatric: Thought Content: Thought content normal. Judgment: Judgment normal. Assessment/Plan Keely was seen today for new patient. Diagnoses and all orders for this visit: Chronic obstructive pulmonary disease, unspecified COPD type ([facility]) - ipratropium-albuteroL (COMBIVENT RESPIMAT) 20-100 mcg/actuation mist; [...] Curiel 07/24/23 1520 documented in this encounter [facility] 02-08-2023 Evaluation note Encounter Date Diagnosis [...] (ICD-10 - G89.29) Follow up after procedure [employer] Other 07-12-2023 Evaluation note* Encounter Date Diagnosis [...] (ICD-10 - G89.29) Follow up after procedure [employer] Other 07-05-2023 Procedure [facility]06-19-2023 Evaluation note* Encounter Date Diagnosis Assessment [...] (ICD-10 - G89.29) Follow up after procedure [employer] Other 06-07-2023 Procedure [facility]04-24-2023 Evaluation note* Encounter Date Diagnosis Assessment [...] Patient encouraged to follow up after imaging [employer] Other 03-23-2023 Evaluation note* Encounter Date Diagnosis [...] encouraged to follow up in 4 weeks [employer] Other 11-14-2022 Evaluation note* Encounter Date Diagnosis [...] a RFA if applicable under fluoroscopic guidance. [employer] Other 09-28-2022 History general Narrative - Reported* Type Description Date Medical History COPD Surgical History back surgery Surgical History gallbladder 03/29/2022 Hospitalization History See Above [employer] Other Chief complaint Narrative - ReportedKEELY CASTAÑEDA is being seen for a consultation for pre-operative clearance and Dr. Jacobson- [facility] 250 DO Work Phone: Evaluation noteNo assessment information available [facility] Work Phone: Evaluation noteNo InformationNort [employer] Other Evaluation note* Diagnosis Chronic obstructive pulmonary disease, unspecified COPD type ([facility])- Primary Sciatica, left side Tobacco abuse disorder Hyperglycemia Other abnormal glucose Mixed hyperlipidemia Fatigue, unspecified type Thoracic myofascial strain, sequela Encounter for screening mammogram for malignant neoplasm of breast Personal history of nicotine dependence Screen for colon cancer Special screening for malignant neoplasms, colon Gastroesophageal reflux disease with esophagitis without hemorrhage BMI 26.0-26.9,adult documented in this encounter [facility]* Diagnosis Type 2 diabetes mellitus without complication, without long-term current use of insulin ([facility])- Primary Other hyperlipidemia documented in this encounter [facility]* Diagnosis Mixed simple and mucopurulent chronic bronchitis ([facility])- Primary Other chronic bronchitis Type 2 diabetes mellitus without complication, without long-term current use of insulin ([facility]) Coronary artery disease involving [place] coronary artery of [place] heart with angina pectoris ([facility]) Avascular necrosis ([facility]) Aseptic necrosis of bone, site unspecified documented in this encounter [facility]* Diagnosis Bilateral shoulder pain, unspecified chronicity- Primary Myalgia Unspecified myalgia and myositis documented in this encounter [facility] Healthcare[facility]* Diagnosis Bilateral shoulder pain, unspecified chronicity- Primary Myalgia Unspecified myalgia and myositis documented in this encounter [facility] Healthcare[facility] note* Diagnosis Type 2 diabetes mellitus without complication, without long-term current use of insulin ([facility])- Primary Mixed simple and mucopurulent chronic bronchitis ([facility]) Other chronic bronchitis Functional diarrhea documented in this encounter [facility]* Diagnosis BURCH (dyspnea on exertion)- Primary Other dyspnea and respiratory abnormality Coronary artery disease involving [place] coronary artery of [place] heart with angina pectoris ([facility]) Type 2 diabetes mellitus without complication, without long-term current use of insulin ([facility]) Other hyperlipidemia Essential hypertension Unspecified essential hypertension Centrilobular emphysema ([facility]) documented in this encounter [facility]* Diagnosis Diarrhea, unspecified type- Primary Type 2 diabetes mellitus without complication, without long-term current use of insulin ([facility]) Mixed simple and mucopurulent chronic bronchitis ([facility]) Other chronic bronchitis documented in this encounter [facility]* Diagnosis Chronic diarrhea- Primary Diarrhea Chronic diarrhea Diarrhea Type 2 diabetes mellitus without complication, without long-term current use of insulin ([facility])- Primary documented in this encounter [facility]* Diagnosis Type 2 diabetes mellitus without complication, without long-term current use of insulin ([facility])- Primary Calcification of aorta ([facility] COPD exacerbation ([facility]) Obstructive chronic bronchitis with exacerbation Mixed simple and mucopurulent chronic bronchitis ([facility]) Other chronic bronchitis documented in this encounter [facility]* Diagnosis Type 2 diabetes mellitus without complication, without long-term current use of insulin ([facility]) documented in this encounter [facility]* Diagnosis COPD exacerbation ([facility])- Primary Obstructive chronic bronchitis with exacerbation Chronic obstructive pulmonary disease, unspecified COPD type ([facility]) Respiratory infection Other diseases of respiratory system, not elsewhere classified [facility] Diagnosis Mixed simple and mucopurulent chronic bronchitis ([facility]) Other chronic bronchitis documented in this encounter [facility]* Diagnosis COPD exacerbation ([facility])- Primary Obstructive chronic bronchitis with exacerbation [facility] Diagnosis Lumbosacral radiculopathy- Primary Thoracic or lumbosacral neuritis or radiculitis, unspecified Lumbar spondylosis Lumbosacral spondylosis without myelopathy Weakness of both lower extremities Ataxia Lack of coordination Imbalance Abnormality of gait Lacunar infarction ([facility]) Unspecified cerebral artery occlusion with cerebral infarction Other chronic pain documented in this encounter [facility] HealthcareEvaluation note* Diagnosis Gastroesophageal reflux disease with esophagitis without hemorrhage documented in this encounter [facility] SystemHistory of Present illness Narrative* Patient [...] at great length she understood and agreed -[facility] 250 DO Work Phone: History of Present illness [...] follow-up in the future on as-needed basis [facility] [employer] DO Work Phone: InstructionsNot on filedocumented in [...] on filedocumented in this encounter [facility]* Attachments The following attachments cannot be sent through Care Everywhere. * Blood Glucose Monitoring ([place]) documented in [facility] System[facility]ructionsNot on file documented in this encounter[facility] SystemInstructionsNot on file documented in this encounter[facility] SystemInstructionsNot on file documented in this encounterPro[facility]ica Health SystemInstructionsNot on file documented in this encounterProMedica Health SystemReason for referral (narrative)* Consultation (Routine) - Pending Review Specialty Diagnoses / Procedures Referred By Isi holt Referred To Contact Cardiology Diagnoses Coronary artery disease involving [place] coronary artery of [place] heart with angina pectoris ([facility] Suzanna Green, PACK PULLER-PUNCH PRESS FEEDER [address] [place] [address] [facility] [address] [facility] [address] [place] [address] Referral ID Status Reason Start Date Expiration Date Visits Requested Visits Authorized [id number] Pending Review Specialty Services Required 08/08/2023 08/07/2024 1 1 * Consultation (Routine) - Pending Review Specialty Diagnoses / Procedures Referred By Contact Referred To Contact Orthopedic Surgery / MED-SURG/ORTHOPEDICS Diagnoses Avascular necrosis ([facility]) Suzanna Green APRN-FNP [address] [place] [address] Cecilio Pinon, DO [address] [address] Referral ID Status Reason Start Date Expiration Date Visits Requested Visits Authorized [id number] Pending Review Specialty Services Required 08/08/2023 08/07/2024 1 1 * Consultation (Routine) - Pending Review Specialty Diagnoses / Procedures Referred By Contac t Referred To Contact Pulmonary Medicine Diagnoses Mixed simple and mucopurulent chronic bronchitis ([facility]) Suzanna Green APRN-FNP [address] [place] [address] Kristian Perez, DO [address] [place] [address] Referral ID Status Reason Start Date Expiration Date Visits Requested Visits Authorized [id number] Pending Review Specialty Services Required 08/08/2023 08/07/20[address] (narrative)* Consultation (Routine) - Pending Review Specialty Diagnoses / Procedures Referred By Contac t Referred To Contact Physical Therapy Diagnoses Myalgia Procedures AL OFFICE/OUTPATIENT [facility] 60 MINUTES Jacques Land, PT [address] [place] [address] Bianca Wang, PT [address] [address] Referral ID Status Reason Start Date Expiration Date Visits Requested Visits Authorized [id number] Pending Review Consult and Treat 08/13/2023 02/09/2024 1 1 [facility] Summary Purpose Family History No Family [...] history of rheumatic fever: Mother(V17.49, Z82.49) Status:Active Relationship Condition Age at Onset Recorded Date/T raz mother Heart murmur Unknown father Unknown mother Unknown Advance Directives No Advanced Directives Records Found [...] Chief Complaint r27.0 r26.89 Chief Complaint KEELY CASTAÑEDA is being seen for a 3 month follow-up of. Reason for Referral Specialty Diagnoses / Procedures Referred By Contac t Referred To Contact Diagnoses Type 2 diabetes mellitus without complication, without long-term current use of insulin ([facility]) Hilario Dia, PACK PULLER-GLUE SPREADER [address] [place] [address] Referral ID Status Reason Start Date Expiration Date Visits Re quested Visits Authorized [id number] Closed 1 1 Specialty Diagnoses / Procedures Referred By Contac t Referred To Contact Diagnoses Diarrhea, unspecified type Procedures Colonoscopy Suzanna Green, PACK PULLER-PUNCH PRESS FEEDER [address] [place] [address] Referral ID Status Reason Start Date Expiration Date V isits Requested Visits Authorized [id number] Pending Review 09/18/2023 09/17/2024 1 1 Specialty Diagnoses / Procedures Referred By Contac t Referred To Contact Diagnoses Coronary artery disease involving [place] coronary artery of [place] heart with angina pectoris ([facility]) Other hyperlipidemia BURCH (dyspnea on exertion) Procedures Echo complete W/O contrast Kayy Espinoza MD [address] [place] [address] [place] [address] [place] [address] Phone: [phone] Referral ID Status Reason Start Date Expiration Date V isits Requested Visits Authorized [id number] Authorized 09/17/2023 12/15/2023 1 1 Specialty Diagnoses / Procedures Referred By Contac t Referred To Contact Diagnoses Coronary artery disease involving [place] coronary artery of [place] heart with angina pectoris ([facility]) BURCH (dyspnea on exertion) Procedures Nuc stress Kayy Alva MD [address] [place] [address] [place] [address] [place] [address] Phone: [phone] Referral ID Status Reason Start Date Expiration Date V isits Requested Visits Authorized [id number] Authorized 09/17/2023 12/15/2023 5 5 Specialty Diagnoses / Procedures Referred By Contac t Referred To Contact Radiology Diagnoses Personal history of nicotine dependence Procedures CT low dose lung screening (Annual) Suzanna Green, PACK PULLER-PUNCH PRESS FEEDER [address] [place] [address] Referral ID Status Reason Start Date Expiration Date V isits Requested Visits Authorized [id number] Pending Review 07/24/2023 07/23/2024 1 1 Additional Source Comments INFORMATION SOURCE (unrecogn ized section and content) DATE CREATED AUTHOR 12/21/2021 [facility] DATE CREATED AUTHOR AUTHOR'S ORGANIZ ATION 04/11/2022 [facility] DATE CREATED AUTHOR AUTHOR'S ORGANIZ ATION 04/12/2022 [employer] DATE CREATED AUTHOR AUTHOR'S ORGANIZ ATION 08/31/2023 [facility] DATE CREATED AUTHOR AUTHOR'S ORGANIZ ATION 01/23/2024 [facility] DATE CREATED AUTHOR AUTHOR'S ORGANIZ ATION 04/01/2024 [facility] DATE CREATED AUTHOR AUTHOR'S ORGANIZ ATION 05/28/2024 [facility] DATE CREATED AUTHOR AUTHOR'S ORGANIZ ATION 07/15/2024 [facility] [employer] Care Teams (unrecognized sec tion and content) Team Status: Inactive Member Role Status Dates Donny Jacobson , DO Attending Provider Active Hayden Dodson , DO Primary Care Provider Active Team Status: Active Member Role Status Dates Hayden Dodson , DO Primary Care Provider Active Team Status: Inactive Member Role Status Dates Hayden Dodson , DO Primary Care Provider Active Yakelin Crowe MD Attending Provider Active Elle Luong MD Referring Provider Active Team Status: Inactive Member Role Status Dates Hayden Dodson , DO Primary Care Provider Active Donny Jacobson , Attending Provider Active Team Status: Inactive Member Role Status Dates Hayden Dodson , DO Primary Care Provider Active Ino Perkins MD Attending Provider Active Team Status: Active Member Role Status Dates PHYSICIAN NO FAMILY Primary Care Provider Active Team Status: Inactive Member Role Status Dates Renata Moran , PACK PULLER-PUNCH PRESS FEEDER-C Attending Provider Active PHYSICIAN NO FAMILY Primary Care Provider Active [employer]bestos Cement Sheet Supervisor Relationship Specialty Start Date End Date Suzanna Green, PACK PULLER-PUNCH PRESS FEEDER [address] [place] [address] PCP - General Internal Medicine 07/24/23 [employer]ement Sheet Supervisor Relationship Specialty Start Date End Date Suzanna Green PACK PULLER-PUNCH PRESS FEEDER [address] [place] [address] PCP - General Internal Medicine 07/24/23 [employer]bestos Cement Sheet Supervisor Relationship Specialty Start Date End Date Suzanna Green, PACK PULLER-PUNCH PRESS FEEDER [address] [place] [address] PCP - General Internal Medicine 07/24/23 [employer]bestos Cement Sheet Supervisor Relationship Specialty Start Date End Date Suzanna Green, PACK PULLER-PUNCH PRESS FEEDER [address] [place] [address] PCP - General Internal Medicine 07/24/23 [employer]bestos Cement Sheet Supervisor Relationship Specialty Start Date End Date Vanesa Tomas MD [address] [place] [address] PCP - General Internal Medicine 08/13/23 Asbestos Cement Sheet Supervisor Relationship Specialty Start Date End Date Vanesa Tomas MD [address] [facility] [place] [address] PCP - General Internal Medicine 08/13/23 Asbestos Cement Sheet Supervisor Relationship Specialty Start Date End Date Vanesa Tomas MD [address] [place] [address] PCP - General Internal Medicine 08/13/23 Asbestos Cement Sheet Supervisor Relationship Specialty Start Date End Date Tae Coni, P[facility] [address] [facility] [place] [address] PCP - General Internal Medicine 07/24/23 Asbestos Cement Sheet Supervisor Relationship Specialty Start Date End Date Tae Coni, PACK [facility] [address] [facility] [place] [address] PCP - General Internal Medicine 07/24/23 Asbestos Cement Sheet Supervisor Relationship Specialty Start Date End Date Tae Coni, P[employer] P[employer]ER-[employer] [address] [facility] [place] [address] PCP - General Internal Medicine 07/24/23 Asbestos Cement Sheet Supervisor Relationship Specialty Start Date End Date Tae Coni, P[facility] [address] [place] [address] PCP - General Internal Medicine 07/24/23 Asbestos Cement Sheet Supervisor Relationship Specialty Start Date End Date Suzanna Green, P[employer] P[employer]ER-[employer] [address] [place] [address] PCP - General Internal Medicine 07/24/23 Asbestos Cement Sheet Supervisor Relationship Specialty Start Date End Date Suzanna Green, P[employer] P[employer]ER-[employer] [address] [place] [address] PCP - General Internal Medicine 07/24/23 Asbestos Cement Sheet Supervisor Relationship Specialty Start Date End Date Suzanna Green, P[employer] P[employer] [address] [place] [address] PCP - General Internal Medicine 07/24/23 Team Status: Inactive Member Role Status Dates PHYSICIAN NO FAMILY Primary Care Provider Active Start: January 21, 2024 End: January 21, 2024 Renata Moran , P[employer] P[employer]ER-[employer] FE[employer]ER-C Attending Provider Active Start: January 21, 2024 End: January 21, 2024 Asbestos Cement Sheet Supervisor Relationship Specialty Start Date End Date Hilario Dia APRN-[facility] [address] [place] [address] PCP - General Family Medicine 02/18/24 Asbestos Cement Sheet Supervisor Relationship Specialty Start Date End Date Hilario Dia APRN-[employer] [address] [place] [address] PCP - General Family Medicine 02/18/24 Asbestos Cement Sheet Supervisor Relationship Specialty Start Date End Date Hilario Dia APRN-[employer] [address] [place] [address] PCP - General Family Medicine 02/18/24 Asbestos Cement Sheet Supervisor Relationship Specialty Start Date End Date Hilario Dia, PACK PULLER-[facility] [address] [place] [address] PCP - General Family Medicine 02/18/24 Asbestos Cement Sheet Supervisor Relationship Specialty Start Date End Date [facility] [address] [place] [address] PCP - General Family Medicine 02/18/24 Asbestos Cement Sheet Supervisor Relationship Specialty Start Date End Date [facility] [address] [place] [address] PCP - General Family Medicine 02/18/24 Asbestos Cement Sheet Supervisor Relationship Specialty Start Date End Date [facility]liario [facility]ia [facility] [address] [place] [address] PCP - General Family Medicine 02/18/24 Asbestos Cement Sheet Supervisor Relationship Specialty Start Date End Date Vanesa Tomas MD [address] [place] [address] PCP - General Internal Medicine 08/13/23 Zack Alvares DO [address] [place] [address] Referring Physician Neurology 07/09/24 Asbestos Cement Sheet Supervisor Relationship Specialty Start Date End Date Vanesa Tomas MD [address] [place] [address] PCP - General Internal Medicine 08/13/23 Zack Alvares DO [address] [place] [address] Referring Physician Neurology 07/09/24 Goals (unrecognized section and content) Goals may [...] this encounterNot on filedocumented as of this encounterGoals may be documented in an alternate sectionNot [...] Comments Diarrhea months Reason Comments 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 [address] [place] [address] Referral ID Status Reason Start Date Expiration Date Visits Requested Visits Authorized [id number] Pending Review Specialty Services Required 08/08/2023 08/07/2024 1 1 Reason Comments Diarrhea Stomach pain with di arrhea a couple weeks Reason Comments Diabetes Sinus,tired 5 days n eg 04/06 Reason Onset Date Comments Med Refill 04/11/2024 Reason Comments Cough Started 05/24- neg c ovid on Reason Onset Date Comments Med Refill 05/30/2024 Reason Comments Med Change Request Reason Comments Gait Problem Back Pain Reason Onset Date Comments Med Refill 07/14/2024 FOR RECORDS PERTAINING TO PATIENTS WHO ARE [...] BE BASED ON THE PRIMARY CLINICAL RECORDS. [employer] [facility]. provides no warranty or guarantee of the accuracy or completeness of information in this document.
== END 2024-08-06 08:37 | disposition home or self-care (01) ==
LOC: CT 08:40
PROVIDERS: PCP Internal Medicine; Visit Provider Internal Medicine
DX: F17.219 Nicotine dependence, cigarettes, with unspecified nicotine-induced disorders (principal); Z12.2 Encounter for screening for malignant neoplasm of respiratory organs; M48.56XA Collapsed vertebra, not elsewhere classified, lumbar region, initial encounter for fracture
CPT/HCPCS: 71271